=== PATIENT | female | born 1950 | race Caucasian/White ===

== ENCOUNTER → 2016-12-03 | Outpatient (CLI) | payer OTHER, MEDICARE ==
[~2016-12-03] MED LIST: ATOR10TA82 PO; ATR25 PO; ATV/1 PO; CLB/200 PO; ESCI1TAB10 PO; GABA-112 PO; HYDR-5688 PO; LEVO50TA PO; LEVO5TAB2 PO; LEVO75TA PO; LSN/2025 PO; OMEP40CA41 PO; TRAM-10 PO
[2016-12-03 13:35] LABS: ALT/SGPT 19 U/L (12-78); AST/SGOT 19 U/L (15-37)
[2016-12-03 13:37] LABS: ALT/SGPT 20 U/L (12-78); BLOOD UREA NITROGEN 13 mg/dl (7-18); BUN/CREATININE RATIO 13.7 (10-20); CARBON DIOXIDE 29 mmol/L (21-32); CHLORIDE 104 mmol/L (98-107); CREATININE 0.92 mg/dl (0.60-1.20); GLUCOSE 90 mg/dl (70-99); POTASSIUM 3.8 mmol/L (3.5-5.1); SODIUM 140 mmol/L (136-145)
[2016-12-03 13:39] LABS: CALCIUM 9.6 mg/dl (8.5-10.1)
[2016-12-03 13:47] LABS: ALB/GLOB RATIO 0.9 (0.9-2); ALKALINE PHOSPHATASE 116 U/L (45-117); AST/SGOT 20 U/L (15-37); CHOLESTEROL 284 mg/dl (0-200); CHOLESTEROL/HDL RATIO 4.5; HDL CHOLESTEROL 63 mg/dl; LDL CHOLESTEROL CALCULATED 172 mg/dl; THYROID STIMULATING HORMONE 0.709 uIu/ml (0.300-4.500); TRIGLYCERIDES 243 mg/dl (0-150); VERY LOW DENSITY LIPOPROT CALC 49 mg/dl
[2016-12-03 13:48] LABS: ESTIMATED AVERAGE GLUCOSE 108 mg/dl; HA1C FLAG Normal (Normal)
== END | disposition home or self-care (01) ==
LOC: C.LABMFLN 10:05
PROVIDERS: ATTEND Family Medicine
DX: Z11.59 Encounter for screening for other viral diseases (principal); E03.9 Hypothyroidism, unspecified; R73.9 Hyperglycemia, unspecified; E78.5 Hyperlipidemia, unspecified; I10 Essential (primary) hypertension

== ENCOUNTER → 2017-02-11 | Outpatient (CLI) | payer OTHER, MEDICARE ==
[~2017-02-11] MED LIST changes: -ATOR10TA82 PO; +ATOR10TA88 PO; +LEVO-371 PO; -LEVO5TAB2 PO
[2017-02-11 13:07] LABS: URINE APPEARANCE CLEAR (CLEAR); URINE BILIRUBIN NEG (NEG); URINE COLOR YELLOW; URINE EPITHELIAL CELL AUTO >30 /lpf (0-5); URINE NITRITE NEG (NEG); URINE PH 6.5 (4.5-7.5); URINE SPECIFIC GRAVITY 1.018 (1.000-1.030); UROBILINOGEN NEG (NEG)
[2017-02-11 13:07] LABS: BASO % 1.3 %; BASO ABS # 0.07 K/uL (0-0.2); COMPLETE YES; EOS % 5.1 %; HEMATOCRIT 42.9 % (37-47); IG% 0.2 %; LYMPH % 32.6 %; LYMPH ABS # 1.78 K/uL (1.2-3.4); MEAN CELL VOLUME 97.9 fL (80-100); MEAN CORPUSCULAR HEMOGLOBIN 32.6 pg (25-34); MEAN CORPUSCULAR HGB CONC 33.3 g/dl (32-36); MEAN PLATELET VOLUME 9.9 fL (7.4-10.4); MONO % 8.6 %; NEUT % 52.2 %; PLATELET COUNT 405 K/uL (130-400); RED BLOOD COUNT 4.38 M/uL (4.2-5.4); WHITE BLOOD COUNT 5.46 K/uL (4.8-10.8)
[2017-02-11 13:08] LABS: MANUAL MICROSCOPIC REQUIRED? NO; REVIEW REQ? NO
[2017-02-11 13:27] LABS: THYROID STIMULATING HORMONE 1.76 uIu/ml (0.300-4.500)
--- NOTE | 2017-02-18 10:29 | CODING QUERY MEDICAL NECESSITY ---
CQSUPPORTING DIAGNOSIS NEEDED A supporting diagnosis is required for the test/procedure performed on this patient in order for us to be reimbursed by the patient's insurance. Please provide a supporting diagnosis for the following test/procedure listed below next to the test name along with your signature. *If there is no additional diagnosis for this patient that would support the following test/procedure please document that below next to the test/procedure. Test(s)/Procedure(s) that require a supporting diagnosis: DOS 02/11/17 URINE CULTURE Provider Signature: Date: Thank you Haleigh Juárez [facility] Information Management Once completed, please kindly fax back to [phone] For questions please call [phone]
== END | disposition home or self-care (01) ==
LOC: C.LABMFLN 11:12
PROVIDERS: ATTEND Family Medicine
DX: R61 Generalized hyperhidrosis (principal); E03.9 Hypothyroidism, unspecified; R30.0 Dysuria

== ENCOUNTER → 2017-05-12 | Day surgery (SDC) | payer OTHER, MEDICARE ==
[2017-04-15 13:08] VITALS: Ht 154.9 cm; Wt 86.4 kg
[~2017-05-12] VITALS: Ht 154.9 cm; Wt 86.4 kg
[~2017-05-12] MED LIST changes: +500ML BSS 0.3ML EPI 1:1000PF IRRIG ONE; +ACETAMINOPHEN 325 MG TAB PO PRN; +AMVISC PLUS 0.8ML SYRINGE INT OCU ONE; +ATROPINE SULFATE 0.1 MG/ML 5ML SYR IV PRN; +AcetaZOLAMIDE 250 MG TAB PO SCH; +BETAXOLOL HCL 0.25% OP SUSP PER DROP CHARGE OPR SCH; +BRIMONIDINE TART 0.2% OP SOLN PER DROP CHARGE ONE; +BSS FLUSH ONE; +ENDOCOAT 0.85ML SYRINGE INT OCU ONE; +EpHEDrine SULFATE INJ 50 MG/ML AMP IV PRN; +EpINEphrine INJ 1MG/ML AMP 1 MG/ML AMP ONE; +FLUMAZENIL 0.1 MG/1 ML 10 ML VIAL IV PRN; -HYDR-5688 PO; +HYDROmorphone INJ 2 MG/ML SYR/VIAL IV PRN; +LABETALOL HCL IV 5 MG/ML 20ML IV PRN; +LACTATED RINGER'S 1000ML 1,000 ML IV SCH; -LEVO75TA PO; +LIDOCAINE 4% OP SOLN DROP CHARGE ONE; +LIDOCAINE 4% OP SOLN DROP CHARGE OPR SCH; +LIDOCAINE HCL 1% MPF 2 ML VIAL ONE; +MIDAZOLAM HCL 1 MG/ML 2ML VIAL ONE; +MIX: 4ML BSS 1ML EPI 1:1000 PF INSTIL ONE; +MOXIFLOXACIN OPH SOLN PER DROP CHARGE ONE; +NALOXONE HCL 0.4 MG/1 ML VIAL/CARP IV PRN; +NURSING VERBAL MED ORDER ONE; +OCUCOAT 1 ML SOLN IO ONE; +ONDANSETRON INJ 2 MG/ML 2 ML VIAL IV PRN; +PHENYLEPHRINE 100MCG/ML 5ML SYR IV PRN; +POVIDONE-IODINE OP SOLN 30 ML BTL ONE; +PROPARACAINE 0.5% OP SOLN PER DROP CHARGE OPR SCH; +TOBRAMYCIN/DEXAMETHASONE OPH OINT PER APPLN CHARGE ONE
--- NOTE | 2017-05-12 10:41 | History & Physical Bridge - SC ---
H&P Re-Evaluation Bridge Note: I have examined the patient, reviewed the History & Physical and in the interval since the performance of the History & Physical I have noted the following changes of clinical significance: No changes noted
[2017-05-12] MEDS: PHENYLEPHRINE HCL 2.5% OP SOLN PER DROP CHARGE OPR SCH ×2 (10:59→11:08)
[2017-05-12] MEDS: TROPICAMIDE 1% OP SOLN PER DROP CHARGE OPR SCH ×2 (11:00→11:09)
[2017-05-12] MEDS: CYCLOPENTOLATE HCL 1% OP SOLN PER DROP CHARGE OPR SCH ×2 (11:01→11:10)
[2017-05-12] MEDS: MOXIFLOXACIN OPH SOLN PER DROP CHARGE OPR SCH ×2 (11:02→11:13)
--- NOTE | 2017-05-12 11:57 | Discharge Instructions-SurgCtr ---
Discharge Instructions Date of Service May 12, 2017. Visit Reason for Visit: Cataract Right Eye Discharge Discharge Diagnosis / Problem: lens implant right eye Discharge Goals Goal(s): Improve function Activity Recommendations Activity Limitations: resume your previous activity Lifting Limitations: no more than 10 pounds Exercise/Sports Limitations: gradually increase as tolerated May Resume Sexual Activity: when tolerated Shower/Bathe: tomorrow Driving or Machine Use: resume 1 day after discharge Anesthesia . Post Anesthesia Instructions: If you have had General Anesthesia or IV Sedation: * Do not drive today. * Resume driving when surgeon permits. * Do not make important decisions or sign legal documents today. * Call surgeon for: 1. Temperature elevations greater than 101 degrees F. 2. Uncontrollable pain. 3. Excessive bleeding. 4. Persistent nausea and vomiting. 5. Medication intolerance (nausea, vomiting or rash). * For nausea and vomiting use only clear liquids such as: tea, soda, bouillon until nausea subsides, then gradually increase diet as tolerated. * If you have any concerns or questions, call your surgeon's office. If physician is unavailable and it is an emergency, call 911 or go to the nearest emergency room. . Instructions / Follow-Up Instructions / Follow-Up ACTIVITY RECOMMENDATIONS: * Light activities. * Mild irritation and blurred vision are common for the first few days. * You may walk outside, read, watch television. * Redness around the white part of the eye is common. MEDICATIONS: Resume previous medications unless instructed otherwise by your surgeon. * Take white Diamox (Acetazolamide) tablet at 3 pm today. Start all eye drops at 3 pm today: * Eye drops (today and tomorrow): Prednisone - one drop in operative eye every 3 hours while awake Ofloxacin - one drop in operative eye every 3 hours while awake SPECIAL CARE INSTRUCTIONS: * Tape plastic shield over eye to sleep at night. Call your doctor at with any concerns or problems. FOLLOW UP VISIT: Follow-up with Dr Guardado at [place] office as scheduled. Diet Recommendations Home Diet: no limitations Procedures Procedures Performed: cataract extraction with lens implant Pending Studies Studies pending at discharge: no Medical Emergencies . Who to Call and When: Medical Emergencies: If at any time you feel your situation is an emergency, please call 911 immediately. . Non-Emergent Contact Non-Emergency issues call your: Family Service Counselor Call Non-Emergent contact if: your pain is not controlled [phone] . . "Provider Documentation" section prepared by Carlos Guardado. .
--- NOTE | 2017-05-12 11:59 | [facility] Operative Report ---
Operative Report Date of Service May 12, 2017. Operative Report 1. PREOPERATIVE DIAGNOSIS: Senile nuclear cataract, right eye. 2. POSTOPERATIVE DIAGNOSIS: Senile nuclear cataract, right eye. 3. PROCEDURE: Phacoemulsification of right cataract with posterior chamber lens implant, type Bausch [employer] Lomb, model MI60L, power +19.0 diopters. ANESTHESIA: Local standby. SURGEON: Dr. Guardado. COMPLICATIONS: None. OPERATING TIME: 10 minutes. 4. OPERATION AND FINDINGS: DESCRIPTION OF PROCEDURE: The right pupil was dilated. The anesthetic was administered using a topical technique. The right eye was prepped and draped. A speculum was placed. A clear corneal incision was formed. The chamber was filled with Amvisc Plus and Endocoat. Epinephrine solution was used. A paracentesis was placed. A capsulorrhexis was performed. The nucleus was hydrodissected. The lens was removed with phacoemulsification. Time was 1.51 seconds. The aspiration unit was used to remove the cortex. The capsule was filled with Amvisc Plus. The lens implant was folded and placed into the capsule. The incision was hydrated. The Amvisc was aspirated. The wound was secure. The chamber was deep. The pupil was round. Brimonidine, TobraDex ointment and Vigamox solution were placed. The speculum was removed. The patient was returned to the Recovery Room in stable condition. I attest to the content of the Intraoperative Record and any orders documented therein. Any exceptions are noted below. The scribe's documentation has been prepared in my presence, under my direction and personally reviewed by me in its entirety. I confirm that the note above accurately reflects all work, treatment, procedures, and medical decision making performed by me. I personally scribed for Carlos Guardado M.D. ([facility]) on 05/12/17 at 11:59. Electronically submitted by Angelique Melchor ([email or web address]).
[2017-05-12 12:00] VITALS: TEMP 36.6
[2017-05-12] MEDS: PROPARACAINE 0.5% OP SOLN PER DROP CHARGE OPR SCH ×2 (12:05→12:07)
--- NOTE | 2017-05-12 12:20 | Anesthesia Progress Nt - [facility] ---
Anesthesia Post Op Note Date & Time May 12, 2017 at 12:20 Vital Signs Pain Intensity: 2 Vital Signs Past 12 Hours Date Time Temp Pulse Resp B/P (MAP) Pulse Ox O2 Delivery O2 Flow Rate FiO2 05/12/17 12:00 36.6 77 16 127/70 (89) 99 Room Air 05/12/17 10:25 36.7 68 18 133/81 (98) 98 Room Air Notes Mental Status: alert / awake / arousable, participated in evaluation Pt Amnestic to Procedure: Yes Nausea / Vomiting: adequately controlled Pain: adequately controlled Airway Patency, RR, SpO2: stable & adequate BP & HR: stable & adequate Hydration State: stable & adequate Anesthetic Complications: no major complications apparent
[2017-05-12 12:28] VITALS: BP 129/68; PULSE 76; O2SAT 96
== END | disposition home or self-care (01) ==
LOC: X.SURG 09:36
PROVIDERS: ATTEND Specialist
DX: H25.11 Age-related nuclear cataract, right eye (principal); I10 Essential (primary) hypertension; Z79.899 Other long term (current) drug therapy

== ENCOUNTER → 2017-05-26 | Day surgery (SDC) | payer OTHER, MEDICARE ==
[2017-05-18 13:42] VITALS: Ht 154.9 cm; Wt 86.4 kg
[~2017-05-26] VITALS: Ht 154.9 cm; Wt 86.4 kg
[~2017-05-26] MED LIST changes: +BETAXOLOL HCL 0.25% OP SUSP PER DROP CHARGE OPL SCH; -BETAXOLOL HCL 0.25% OP SUSP PER DROP CHARGE OPR SCH; +FENTANYL CITRATE INJ 50 MCG/1 ML 2 ML VIAL ONE; -FLUMAZENIL 0.1 MG/1 ML 10 ML VIAL IV PRN; -HYDROmorphone INJ 2 MG/ML SYR/VIAL IV PRN; -LABETALOL HCL IV 5 MG/ML 20ML IV PRN; -LACTATED RINGER'S 1000ML 1,000 ML IV SCH; +LACTATED RINGER'S 1000ML 500 ML IV SCH; +LIDOCAINE 4% OP SOLN DROP CHARGE OPL SCH; -LIDOCAINE 4% OP SOLN DROP CHARGE OPR SCH; -NALOXONE HCL 0.4 MG/1 ML VIAL/CARP IV PRN; -NURSING VERBAL MED ORDER ONE; -PHENYLEPHRINE 100MCG/ML 5ML SYR IV PRN; +PROPARACAINE 0.5% OP SOLN PER DROP CHARGE OPL SCH; -PROPARACAINE 0.5% OP SOLN PER DROP CHARGE OPR SCH; +TROPICAMIDE 0.5% OP SOLN 15 ML BTL OPL SCH
[2017-05-26] MEDS: PHENYLEPHRINE HCL 2.5% OP SOLN PER DROP CHARGE OPL SCH ×2 (07:08→07:12)
[2017-05-26] MEDS: TROPICAMIDE 1% OP SOLN PER DROP CHARGE OPL SCH ×2 (07:09→07:15)
[2017-05-26] MEDS: CYCLOPENTOLATE HCL 1% OP SOLN PER DROP CHARGE OPL SCH ×2 (07:10→07:17)
[2017-05-26] MEDS: MOXIFLOXACIN OPH SOLN PER DROP CHARGE OPL SCH ×2 (07:11→07:18)
--- NOTE | 2017-05-26 08:04 | Discharge Instructions-SurgCtr ---
Discharge Instructions Date of Service May 26, 2017. Visit Reason for Visit: Cataract Left Eye Discharge Discharge Diagnosis / Problem: lens implant left eye Discharge Goals Goal(s): Improve function Activity Recommendations Activity Limitations: resume your previous activity Lifting Limitations: no more than 10 pounds Exercise/Sports Limitations: gradually increase as tolerated May Resume Sexual Activity: when tolerated Shower/Bathe: tomorrow Driving or Machine Use: resume 1 day after discharge Anesthesia . Post Anesthesia Instructions: If you have had General Anesthesia or IV Sedation: * Do not drive today. * Resume driving when surgeon permits. * Do not make important decisions or sign legal documents today. * Call surgeon for: 1. Temperature elevations greater than 101 degrees F. 2. Uncontrollable pain. 3. Excessive bleeding. 4. Persistent nausea and vomiting. 5. Medication intolerance (nausea, vomiting or rash). * For nausea and vomiting use only clear liquids such as: tea, soda, bouillon until nausea subsides, then gradually increase diet as tolerated. * If you have any concerns or questions, call your surgeon's office. If physician is unavailable and it is an emergency, call 911 or go to the nearest emergency room. . Instructions / Follow-Up Instructions / Follow-Up ACTIVITY RECOMMENDATIONS: * Light activities. * Mild irritation and blurred vision are common for the first few days. * You may walk outside, read, watch television. * Redness around the white part of the eye is common. MEDICATIONS: Resume previous medications unless instructed otherwise by your surgeon. * Take white Diamox (Acetazolamide) tablet at 1 pm today. Start all eye drops at 1 pm today: * Eye drops (today and tomorrow): Prednisone - one drop in operative eye every 3 hours while awake Ofloxacin - one drop in operative eye every 3 hours while awake SPECIAL CARE INSTRUCTIONS: * Tape plastic shield over eye to sleep at night. Call your doctor at with any concerns or problems. FOLLOW UP VISIT: Follow-up with Dr Guardado at [place] office as scheduled. Diet Recommendations Home Diet: no limitations Procedures Procedures Performed: cataract extraction with lens implant Pending Studies Studies pending at discharge: no Medical Emergencies . Who to Call and When: Medical Emergencies: If at any time you feel your situation is an emergency, please call 911 immediately. . Non-Emergent Contact Non-Emergency issues call your: Online Editor Call Non-Emergent contact if: your pain is not controlled [phone] . . "Provider Documentation" section prepared by Carlos Guardado. .
--- NOTE | 2017-05-26 08:06 | [facility] Operative Report ---
Operative Report Date of Service May 26, 2017. Operative Report 1. PREOPERATIVE DIAGNOSIS: Senile nuclear cataract, left eye. 2. POSTOPERATIVE DIAGNOSIS: Senile nuclear cataract, left eye. 3. PROCEDURE: Phacoemulsification of left cataract with posterior chamber lens implant, type Bausch [employer] Lomb, model MI60L, power +18 diopters. ANESTHESIA: Local standby. SURGEON: Dr. Guardado. COMPLICATIONS: None. OPERATING TIME: 10 minutes. 4. OPERATION AND FINDINGS: DESCRIPTION OF PROCEDURE: The left pupil was dilated. The anesthetic was administered using a topical technique. The left eye was prepped and draped. A speculum was placed. A clear corneal incision was formed. The chamber was filled with Amvisc Plus and Endocoat. Epinephrine solution was used. A paracentesis was placed. A capsulorrhexis was performed. The nucleus was hydrodissected. The lens was removed with phacoemulsification. Time was 2.11 seconds. The aspiration unit was used to remove the cortex. The capsule was filled with Amvisc Plus. The lens implant was folded and placed into the capsule. The incision was hydrated. The Amvisc was aspirated. The wound was secure. The chamber was deep. The pupil was round. Brimonidine, TobraDex ointment and Vigamox solution were placed. The speculum was removed. The patient was returned to the Recovery Room in stable condition. I attest to the content of the Intraoperative Record and any orders documented therein. Any exceptions are noted below. The scribe's documentation has been prepared in my presence, under my direction and personally reviewed by me in its entirety. I confirm that the note above accurately reflects all work, treatment, procedures, and medical decision making performed by me. I personally scribed for Carlos Guardado M.D. ([facility]) on 05/26/17 at 08:06. Electronically submitted by Angelique Melchor ([email or web address]).
--- NOTE | 2017-05-26 08:17 | Anesthesiology Progress Note ---
Anesthesia Post Op Note Date & Time May 26, 2017 at 08:17 Vital Signs Pain Intensity: 0 Vital Signs Past 12 Hours Date Time Temp Pulse Resp B/P (MAP) Pulse Ox O2 Delivery O2 Flow Rate FiO2 05/26/17 07:01 36.7 69 18 147/79 (101) 96 Room Air Notes Mental Status: alert / awake / arousable, participated in evaluation Nausea / Vomiting: adequately controlled Pain: adequately controlled Airway Patency, RR, SpO2: stable & adequate BP & HR: stable & adequate Hydration State: stable & adequate Anesthetic Complications: no major complications apparent
[2017-05-26 08:38] VITALS: BP 128/60; PULSE 74; TEMP 36.9; O2SAT 96
== END | disposition home or self-care (01) ==
LOC: X.SURG 06:29
PROVIDERS: ATTEND Specialist
DX: H25.11 Age-related nuclear cataract, right eye (principal); I10 Essential (primary) hypertension; Z79.899 Other long term (current) drug therapy

== ENCOUNTER → 2017-08-20 | Outpatient (CLI) | payer OTHER, MEDICARE ==
[~2017-08-20] MED LIST changes: -500ML BSS 0.3ML EPI 1:1000PF IRRIG ONE; +ACET-1256 PO; +ACET-24 PO; -ACETAMINOPHEN 325 MG TAB PO PRN; -AMVISC PLUS 0.8ML SYRINGE INT OCU ONE; +ASPI-320 PO; +ATOR10TA82 PO; -ATOR10TA88 PO; -ATROPINE SULFATE 0.1 MG/ML 5ML SYR IV PRN; -AcetaZOLAMIDE 250 MG TAB PO SCH; -BETAXOLOL HCL 0.25% OP SUSP PER DROP CHARGE OPL SCH; -BRIMONIDINE TART 0.2% OP SOLN PER DROP CHARGE ONE; -BSS FLUSH ONE; +CLB200 PO; +DICL-201 PO; -ENDOCOAT 0.85ML SYRINGE INT OCU ONE; -EpHEDrine SULFATE INJ 50 MG/ML AMP IV PRN; -EpINEphrine INJ 1MG/ML AMP 1 MG/ML AMP ONE; -FENTANYL CITRATE INJ 50 MCG/1 ML 2 ML VIAL ONE; -LACTATED RINGER'S 1000ML 500 ML IV SCH; -LEVO-371 PO; +LEVO5TAB2 PO; -LIDOCAINE 4% OP SOLN DROP CHARGE ONE; -LIDOCAINE 4% OP SOLN DROP CHARGE OPL SCH; -LIDOCAINE HCL 1% MPF 2 ML VIAL ONE; +LISI20TA10 PO; -LSN/2025 PO; -MIDAZOLAM HCL 1 MG/ML 2ML VIAL ONE; -MIX: 4ML BSS 1ML EPI 1:1000 PF INSTIL ONE; -MOXIFLOXACIN OPH SOLN PER DROP CHARGE ONE; -OCUCOAT 1 ML SOLN IO ONE; +ONDA8TAB62 PO; -ONDANSETRON INJ 2 MG/ML 2 ML VIAL IV PRN; +POLYSOL4 OPB; -POVIDONE-IODINE OP SOLN 30 ML BTL ONE; -PROPARACAINE 0.5% OP SOLN PER DROP CHARGE OPL SCH; +RXC5 PO; -TOBRAMYCIN/DEXAMETHASONE OPH OINT PER APPLN CHARGE ONE; -TROPICAMIDE 0.5% OP SOLN 15 ML BTL OPL SCH; +VNTHFA/IN INH
[2017-08-20 18:50] LABS: ALT/SGPT 23 U/L (12-78); AST/SGOT 19 U/L (15-37); BLOOD UREA NITROGEN 13 mg/dl (7-18); CALCIUM 9.4 mg/dl (8.5-10.1); CARBON DIOXIDE 29 mmol/L (21-32); CREATININE 0.99 mg/dl (0.60-1.20); GLUCOSE 99 mg/dl (70-99); POTASSIUM 3.5 mmol/L (3.5-5.1); SODIUM 137 mmol/L (136-145)
[2017-08-20 19:02] LABS: CHOLESTEROL 147 mg/dl (0-200); LDL CHOLESTEROL CALCULATED 61 mg/dl
== END | disposition home or self-care (01) ==
LOC: C.LABMFLN 10:50
PROVIDERS: ATTEND Family Medicine
DX: I10 Essential (primary) hypertension (principal); E78.2 Mixed hyperlipidemia; E03.9 Hypothyroidism, unspecified; E06.3 Autoimmune thyroiditis

== ENCOUNTER → 2017-10-05 | Outpatient (CLI) | payer OTHER, MEDICARE ==
[~2017-10-05] MED LIST changes: +ASPEC81 PO; -ASPI-320 PO; -ATV/1 PO; -CLB/200 PO; -LEVO5TAB2 PO; -LISI20TA10 PO; +LSN/2025 PO; -TRAM-10 PO
[2017-10-05 13:21] LABS: BASO ABS # 0.08 K/uL (0-0.2); EOS % 2.5 %; HEMATOCRIT 42.6 % (37-47); HEMOGLOBIN 14.6 g/dL (12.0-16.0); IG# 0.03 K/uL (0.00-0.02); LYMPH % 26.7 %; LYMPH ABS # 2.15 K/uL (1.2-3.4); MEAN CELL VOLUME 95.9 fL (80-100); MEAN CORPUSCULAR HEMOGLOBIN 32.9 pg (25-34); MEAN CORPUSCULAR HGB CONC 34.3 g/dl (32-36); MEAN PLATELET VOLUME 9.6 fL (7.4-10.4); MONO % 7.9 %; MONO ABS # 0.64 K/uL (0.11-0.59); NEUT % 61.5 %; NEUT ABS # 4.96 K/uL (1.4-6.5); PLATELET COUNT 447 K/uL (130-400); RED CELL DISTRIBUTION WIDTH CV 13.1 % (11.5-14.5); RED CELL DISTRIBUTION WIDTH SD 45.2 fL (36.4-46.3); WHITE BLOOD COUNT 8.06 K/uL (4.8-10.8)
== END | disposition home or self-care (01) ==
LOC: C.LABBC 11:34
PROVIDERS: ATTEND Specialist
DX: M31.6 Other giant cell arteritis (principal)

== ENCOUNTER 2017-10-13 05:56 | Inpatient (IN) | payer OTHER, MEDICARE ==
[2017-09-21 11:15] VITALS: BMI 37.0
--- NOTE | 2017-09-21 11:46 | PAT Medication Instructions ---
Service Date Sep 21, 2017. Current Home Medication List Albuterol Hfa (Ventolin Hfa), 1 PUFFS INH Q6H PRN for PRN Atorvastatin (Lipitor), 10 MG PO HS Diclofenac (Voltaren), 75 MG PO BID PRN for PRN Escitalopram Oxalate (Lexapro), 20 MG PO QAM Gabapentin (Neurontin), 100 MG PO TID Hctz/Lisinopril (Zestoretic 20MG/25MG), 1 TAB PO QAM Hydroxyzine HCl (Hydroxyzine HCl), 25-50 MG PO HS PRN for Sleep Levothyroxine Sodium (Synthroid), 50 MCG PO QAM Omeprazole (Prilosec), 40 MG PO QAM Medication Instructions For Your Scheduled Surgery - Hold the following medications 7 days prior to surgery: Diclofenac (Voltaren), 75 MG PO BID PRN for PRN - Hold the following medications the morning of surgery: Hctz/Lisinopril (Zestoretic 20MG/25MG), 1 TAB PO QAM - Take the following medications the morning of surgery with a sip of water: Albuterol Hfa (Ventolin Hfa), 1 PUFFS INH Q6H PRN for PRN (if needed, and bring it with you to the hospital) Levothyroxine Sodium (Synthroid), 50 MCG PO QAM Omeprazole (Prilosec), 40 MG PO QAM Gabapentin (Neurontin), 100 MG PO TID Escitalopram Oxalate (Lexapro), 20 MG PO QAM - Take the following medications as scheduled the night before surgery: Hydroxyzine HCl (Hydroxyzine HCl), 25-50 MG PO HS PRN for Sleep Gabapentin (Neurontin), 100 MG PO TID Atorvastatin (Lipitor), 10 MG PO HS If you have any questions please call us at [phone] or [phone] or [phone]
[2017-09-21 12:54] LABS: BASO % 0.8 %; BASO ABS # 0.07 K/uL (0-0.2); EOS % 2.2 %; EOS ABS # 0.19 K/uL (0-0.5); HEMOGLOBIN 13.7 g/dL (12.0-16.0); IG# 0.02 K/uL (0.00-0.02); LYMPH % 27.9 %; LYMPH ABS # 2.42 K/uL (1.2-3.4); MEAN CELL VOLUME 96.5 fL (80-100); MEAN CORPUSCULAR HEMOGLOBIN 32.2 pg (25-34); MEAN CORPUSCULAR HGB CONC 33.4 g/dl (32-36); MEAN PLATELET VOLUME 9.6 fL (7.4-10.4); MONO % 7.6 %; MONO ABS # 0.66 K/uL (0.11-0.59); NEUT % 61.3 %; NEUT ABS # 5.32 K/uL (1.4-6.5); PLATELET COUNT 412 K/uL (130-400); RED CELL DISTRIBUTION WIDTH CV 13.3 % (11.5-14.5); RED CELL DISTRIBUTION WIDTH SD 47.2 fL (36.4-46.3); WHITE BLOOD COUNT 8.68 K/uL (4.8-10.8)
[2017-09-21 13:02] LABS: PTT PATIENT 23.8 SECONDS (21.0-31.0)
[2017-09-21 13:32] LABS: HEMOGLOBIN A1C 5.5 % (4.5-5.6)
--- NOTE | 2017-10-12 19:20 | HISTORY & PHYSICAL EXAMINATION ---
DATE OF ADMISSION: 10/13/2017 CHIEF COMPLAINT: Chronic right knee pain. HISTORY OF PRESENT ILLNESS: This is a 67-year-old female patient of Dr. Laguerre, complaining of chronic right knee pain, longstanding, now progressively getting worse. The patient has failed conservative treatment including intraarticular injections, viscosupplementation, anti-inflammatories and the use of a brace. The patient has increased pain with weightbearing activities and her pain does interfere with her activities of daily living. PAST MEDICAL HISTORY: Hypertension, hypercholesterolemia, asthma, anxiety, hypothyroidism, osteoarthritis, spine problems, neck problems, sciatica, acid reflux, obesity, dental issues. SOCIAL HISTORY: Nonsmoker, nondrinker. FAMILY HISTORY: Noncontributory. SURGICAL HISTORY: Right knee scope and injection bone substitute MTP, Left and right shoulder surgery, left elbow surgery, right ear surgery, bilateral cataract surgery, hysterectomy, neck surgery, low back surgery. REVIEW OF SYSTEMS: The patient complains of chronic right knee pain and instability. Otherwise, denies any shortness of breath, chest pain, nausea, vomiting or any other joint complaints. MEDICATIONS: Omeprazole 100 mg daily, diclofenac sodium 75 mg p.r.n., atorvastatin 10 mg at bedtime, lisinopril 20/25 daily, Lexapro 20 mg daily, Synthroid 75 mcg daily, hydroxyzine 25 mg daily, gabapentin 100 mg t.i.d. ALLERGIES: INCLUDE BETADINE, DARVON, DEMEROL, DILANTIN/PHENYTOIN, DARVOCET, TETANUS SHOTS. PHYSICAL EXAMINATION: GENERAL: Well-developed, well-nourished 67-year-old female in no acute distress. She is alert and oriented x3 and pleasant. HEENT: Normocephalic, atraumatic. Extraocular motions are intact. Pupils are equal and reactive to light. HEART: Regular rate and rhythm, no murmurs appreciated. LUNGS: Clear. ABDOMEN: Soft and nontender. Bowel sounds are present. EXTREMITIES: Right knee reveals medial joint line tenderness. She has limited range of motion of 0-125 degrees. She has a varus deformity. NEUROLOGIC: Neurovascularly, she is intact with 5/5 strength in her right lower extremity. DIAGNOSES: Right knee end-stage osteoarthritis, hypertension, hypercholesterolemia, asthma, anxiety, hypothyroidism, osteoarthritis, spine problems, neck problems, sciatica, acid reflux, obesity, dental issues. PLAN: The patient was advised of her diagnosis. Indications, risks, benefits, postop course have all been reviewed. The patient wishes to proceed with right total knee arthroplasty. Necessary consent forms, preoperative testing and clearances will be obtained. JUAN CARLOS
[2017-10-13] VITALS (8 sets, daily range): BP systolic 93–163; BP diastolic 53–92; PULSE 80–105; TEMP 36.7–37.1; O2SAT 95–97; Ht 154.9 cm; Wt 88.9 kg
[~2017-10-13] VITALS: Ht 154.9 cm; Wt 88.9 kg
[~2017-10-13 05:56] MED LIST changes: -ACET-1256 PO; -ACET-24 PO; -ASPEC81 PO; -CLB200 PO; -ONDA8TAB62 PO; -POLYSOL4 OPB; -RXC5 PO
[2017-10-13] MEDS ORDERED: GABAPENTIN 300 MG CAP PO SCH (06:00)
[2017-10-13] MEDS ORDERED: CeleBREX 200 MG CAP PO SCH (06:00)
[2017-10-13] MEDS ORDERED: CLINDAMYCIN 600 MG/54 ML D5W IV SCH (06:00)
[2017-10-13] MEDS ORDERED: LACTATED RINGER'S 1000ML 500 ML IV SCH (06:00)
[2017-10-13] MEDS ORDERED: ACETAMINOPHEN 500 MG TAB PO SCH (06:00)
[2017-10-13] MEDS ORDERED: DEXAMETHASONE 4 MG TAB PO SCH (06:00)
[2017-10-13] MEDS ORDERED: CEFAZOLIN 2000MG IV PUSH 15 ML IV SCH (06:00)
[2017-10-13] MEDS ORDERED: LACTATED RINGER'S 1000ML 1,000 ML IV SCH (06:00)
[2017-10-13] MEDS ORDERED: ROPIVACAINE 5MG/ML 30 ML 150 MG, BUPIVACAINE 0.5% MPF INJ 30 ML, EpINEphrine HCL INJ 0.... INFIL SCH ×8 (06:00)
[2017-10-13] MEDS ORDERED: FAMOTIDINE 20 MG TAB PO SCH (06:00)
[2017-10-13] MEDS ORDERED: METOCLOPRAMIDE HCL 10 MG TAB PO SCH (06:00)
[2017-10-13] MEDS ORDERED: ROPIVACAINE 0.5% 5 MG/ML 30 ML VIAL ONE (06:27)
[2017-10-13] MEDS ORDERED: BUPIVACAINE 0.5 % 5 MG/1 ML PF 10ML VIAL ONE (06:27)
[2017-10-13] MEDS ORDERED: POLYSOL4 OPB (06:27)
[2017-10-13] MEDS ORDERED: ACET-1256 PO (06:27)
[2017-10-13] MEDS: TRANEXAMIC ACID INJ 1,000 MG x 2 Bags IV SCH ×4 (06:30→07:51)
[2017-10-13] MEDS ORDERED: MIDAZOLAM HCL 1 MG/ML 2ML VIAL ONE ×2 (06:45→07:15)
[2017-10-13] MEDS ORDERED: FENTANYL CITRATE INJ 50 MCG/1 ML 2 ML VIAL ONE ×3 (06:45→07:15)
[2017-10-13] MEDS ORDERED: PROPOFOL IV EMULSION 10 MG/ML 20 ML VIAL IV ONE ×3 (06:45→09:34)
[2017-10-13] MEDS ORDERED: LIDOCAINE HCL 2% 2 ML VIAL (20MG/ML) ONE ×2 (06:45→07:14)
[2017-10-13] MEDS ORDERED: BACITRACIN 50000 UNIT VIAL ONE (07:02)
[2017-10-13] MEDS ORDERED: ORTHO JOINT ANESTHETIC ONE (07:02)
[2017-10-13] MEDS ORDERED: EpHEDrine SULFATE 50MG/5ML SYR ONE (07:14)
[2017-10-13] MEDS ORDERED: PHENYLEPHRINE 100MCG/ML 5ML SYR ONE (07:14)
--- NOTE | 2017-10-13 10:17 | [facility] Post Operative Brief Note ---
Immediate Operative Summary Operative Date Oct 13, 2017. Pre-Operative Diagnosis Right Knee End-Stage Osteoarthritis Post-Operative Diagnosis Right Knee End-Stage Osteoarthritis Procedure(s) Performed Right Total Knee Arthroplasty Surgeon Dr. Edwards Braker Passenger Train Surgeon(s) ANNE MARIE Valenzuela Estimated Blood Loss 5 cc Findings Consistent with Post-Op Diagnosis Specimens A. Right Knee Bone and Tissue Drains 2 hemovac Anesthesia Type MAC Spinal Regional Complication(s) none Disposition Disposition: Recovery Room / PACU
[2017-10-13] MEDS ORDERED: ATROPINE SULFATE 0.1 MG/ML 5ML SYR IV PRN (10:45)
[2017-10-13] MEDS ORDERED: EpHEDrine SULFATE INJ 50 MG/ML AMP IV PRN (10:45)
[2017-10-13] MEDS ORDERED: SOD PHOSPHATE/SOD BIPHOSPHATE ENEMA 132 ML BTL PR PRN (11:00)
[2017-10-13] MEDS ORDERED: hydrOXYzine HCL 25 MG TAB PO PRN (11:00)
[2017-10-13] MEDS ORDERED: ZOLPIDEM TARTRATE 5 MG TAB PO PRN (11:00)
[2017-10-13] MEDS ORDERED: MAGNESIUM HYDROXIDE SUSP 30 ML UDC PO PRN (11:00)
[2017-10-13] MEDS ORDERED: TRAMADOL HCL 50 MG TAB PO PRN (11:00)
[2017-10-13] MEDS ORDERED: ALBUTEROL HFA 8 GM INHALER INH PRN (11:00)
[2017-10-13] MEDS ORDERED: METOCLOPRAMIDE HCL INJ 5 MG/ML 2 ML VIAL IV PRN (11:00)
[2017-10-13] MEDS ORDERED: ONDANSETRON INJ 2 MG/ML 2 ML VIAL IV PRN (11:00)
[2017-10-13] MEDS ORDERED: BISACODYL 10 MG SUPP PR PRN (11:00)
[2017-10-13] MEDS ORDERED: MoRPHine SULFATE 2 MG/ML CARP IV PRN (11:00)
--- NOTE | 2017-10-13 11:15 | OPERATIVE REPORT ---
DATE OF OPERATION: 10/13/2017 INDICATION FOR PROCEDURE: The patient is a 67-year-old white female. She has history of right knee DJD. She had a medial meniscus tear, insufficiency fracture medial tibia, had injectable bone substitute. Despite that, she had progressive osteoarthritis. Now, she is bone on bone in medial compartment. Radiographs demonstrate she has a varus knee, medial compartment bone on bone on flexion views, and injectable bone substitute proximal medial tibial plateau. PREOPERATIVE DIAGNOSIS: End-stage osteoarthritis, right knee. History of previous injectable bone substitute proximal tibia for insufficiency fracture proximal tibia and status post knee arthroscopy. POSTOPERATIVE DIAGNOSIS: Same, healed insufficiency fracture. PROCEDURE: Right total knee arthroplasty. SURGEON: Dr. Edwards. COACH WIRER: Kody Amezquita PA-C. ANESTHESIA: Spinal sedation, adductor nerve block, Orthomix. OPERATIVE PROCEDURE: The patient was taken to the operating room, anesthetized under anesthesia as dictated. Pneumatic tourniquet was placed on the right upper thigh. Right lower extremity was prepped and draped in usual sterile fashion. We used DuraPrep which she tolerated during previous surgeries. Her right lower extremity was examined, demonstrated she had a varus knee, no effusion, no instability, healed scars from previous surgery, good range of motion. Her leg was elevated and exsanguinated with an Esmarch bandage. Pneumatic tourniquet was raised to 325 mmHg and later 350 mmHg during the case because of inadequate effect at the 325 level. The anterior incision was made across the right knee in longitudinal fashion. Skin was incised sharply, subcutaneous flaps were elevated. Incision was made through medial retinaculum, extended up in the mid third of the quadriceps tendon and extended down to the medial tibial tubercle. Intraarticular findings demonstrate she had tricompartmental DJD. She had grade 3 thinning in trochlear groove with significant osteoarthritic changes there. She had some areas of articular thinning and grade 3 wear of the lateral femoral condyle. She had grade 4 DJD medial compartment. I used the [employer] Journey 2.0 total knee arthroplasty system using standard instrumentation. The knee was exposed by excising the infrapatellar fat pad. I excised the lateral meniscus, the medial meniscus remnants. I excised cruciate ligaments. I excised some of the fat pad over the anterior femur for placement of the anterior flange of the component in that area. The femur was then exposed. Intramedullary drill hole was made into the femoral canal. The patient had some anterior, posterior and mediolateral mismatch with a narrow femur. The distal femoral cutting guide was adjusted to resect standard cut at 5 degrees of valgus cut and then went ahead with the sizing guide in place. She was sized for a 5 but that was too wide medial lateral, so we had to downsize to a 4, adjust the alignment guide so we would not notch anteriorly. After the appropriate drill holes were placed, the 5-1 cutting block was placed and then the adjustments were made to that to assure no notching, and then the anterior, posterior and chamfer cuts were made. The knee was then extended and then we addressed the patella. A subperiosteal peel lateral release was performed around the patella. The patella width was measured and the width was reproduced using freehand cut technique and a 29 patellar component which was biased to the medial side to help patellar tracking. The drill holes were made and the excess lateral facet was bevelled off to prevent any impingement. The tibia was then subluxed and an external tibial cutting guide was adjusted to resect a perpendicular cut to the long axis of the tibia with about 3 degrees posterior slope and it was made below the most efficient medial side. After proximal tibia cut was made, we used the laminar baggage and mail agent to assure ligamentous balance, removed all soft tissue posteriorly and osteophytes. The tibia was then re-exposed and then we sized tibia for a 2. Maximum externally rotated the tibial trial. Pinned it in position and punch for the stem was used but we entered it some of the well-healed proximal tibia on the medial side insufficiency fracture area which was significantly thickened due to the calcium phosphate material, so I had to use a skinny saw to assist in cutting the thin insertion site on the medial side to the sclerotic hard calcium phosphate. Then, the punch was fully seated without complication. I did drill some additional holes in the proximal tibia later through that hard calcium phosphate impregnated bone to help with cement fixation. The femoral trial was then inserted, centered, and the notch cutting devices were used and a collet was placed and then an 11 insert high flex poly gave balanced ligaments through full range of motion. The patella had just a very slight lateral liftoff, so we went ahead and did a lateral release, leaving the synovium intact, and patella tracked perfectly centrally at this time. The trials were removed and then the anesthetic cocktail was injected per protocol. The knee was copiously irrigated with pulsatile lavage antibiotic solution and Bacitracin. The final components were cemented with Simplex G cement. The final components were the [employer] right Oxinium Journey 2.0 posterior stabilized right femoral component and that was size 4 femoral component and the 2 tibial baseplate and the 11 mm high flex poly posterior stabilized insert and the 29 mm domed patella insert. When the cement cured, the knee was again copiously irrigated with pulsatile lavage antibiotic solution and Bacitracin. WE DID NOT USE ANY BETADINE SOAK DUE TO BETADINE ALLERGY. The 2 drains were brought out laterally, connected to Hemovac. The quadriceps tendon and medial retinaculum were repaired with interrupted [id number] #1 Vicryl sutures. Subcutaneous tissue was closed with interrupted 2-0 Vicryl sutures. The skin was closed with chandler. Sterile dressings were applied and Richi wrap from the foot to the thigh was applied. Kody Amezquita PA-C, was my veterinarian assistant, participated in the entire procedure. He assisted in patient positioning, prepping, draping, leg positioning, soft tissue retraction, instrument management, and performed the fascial, subcutaneous and skin closure, and will participate in postoperative care of the patient. I attest to the content of the Intraoperative Record and any orders documented therein. Any exception s are noted below.
--- NOTE | 2017-10-13 11:22 | DIAGNOSTIC IMAGING REPORT ---
R KNEE 1 OR 2 VIEWS ROUTINE CLINICAL HISTORY: AP/LATERAL IN PACU RIGHT KNEE postoperative evaluation COMPARISON: None. DISCUSSION: Operative findings consistent with a total right knee arthroplasty. Good contact between prosthetic and underlying bone. Surgical drains are in position. Expected postoperative soft tissue change. IMPRESSION: Anatomic alignment status post total right knee arthroplasty. The above report was generated using voice recognition software. It may contain grammatical, syntax or spelling errors. Electronically signed by: Kody Santana M.D. 10/13/2017 11:21 AM Dictated Date/Time: 10/13/2017 11:19 AM
--- NOTE | 2017-10-13 11:56 | Anesthesiology Progress Note ---
Anesthesia Post Op Note Date & Time Oct 13, 2017 at 11:56 Vital Signs Pain Intensity: 0 Vital Signs Past 12 Hours Date Time Temp Pulse Resp B/P (MAP) Pulse Ox O2 Delivery O2 Flow Rate FiO2 10/13/17 11:45 91 14 123/64 95 Nasal Cannula 2 10/13/17 11:35 92 17 120/65 95 Nasal Cannula 2 10/13/17 11:25 88 18 128/75 95 Nasal Cannula 2 10/13/17 11:15 92 23 130/99 95 Nasal Cannula 2 10/13/17 11:05 88 12 129/64 99 Oxymask 6 10/13/17 10:55 89 12 110/61 99 Oxymask 6 10/13/17 10:49 36.3 94 20 111/56 97 Oxymask 10 10/13/17 06:10 36.7 80 20 163/92 96 Room Air Notes Mental Status: alert / awake / arousable, participated in evaluation Pt Amnestic to Procedure: Yes Nausea / Vomiting: adequately controlled Pain: adequately controlled Airway Patency, RR, SpO2: stable & adequate BP & HR: stable & adequate Hydration State: stable & adequate Neuraxial Anesthesia: was administered, sensory block is resolving Anesthetic Complications: no major complications apparent
[2017-10-13] MEDS: D5W AND 1/2NSS + 20MEQ KCL 1,000 ML IV SCH ×2 (13:20→23:33)
--- NOTE | 2017-10-13 13:41 | Medical Consult ---
Consultation Date of Consultation: Oct 13, 2017. Attending Physician: Kenji Edwards M.D. Reason for Consultation: medical co management History of Present Illness 67-year-old female with past medical history of hypertension, dyslipidemia, Alyson thyroiditis/hypothyroidism and severe arthritis. Patient failed outpatient conservative management and presented to the hospital hospital for an elective right total knee arthroplasty. Procedure went uneventful and patient has no complaint Family History No pertinent family history Social History Smoking Status: Never Smoker Marital Status: Occupation Status: retired Allergies Coded Allergies: Chlorhexidine (Verified Allergy, Severe, HIVES, 10/13/17) Phenytoin (Verified Allergy, Intermediate, RASH, 10/13/17) Adhesives (Verified Allergy, Unknown, WITH SONE TAPES-SKIN REDDNESS IRRITATION, 10/13/17) Dicloxacillin (Verified Allergy, Unknown, hives, gi upset, 10/13/17) Meperidine (Verified Allergy, Unknown, RASH, 10/13/17) Povidone Iodine (Verified Allergy, Unknown, rash and swelling at contact site, 10/13/17) Propoxyphene (Verified Allergy, Unknown, RASH, 10/13/17) Tetanus Toxoid (Verified Allergy, Unknown, RASH, 10/13/17) Aspirin (Unverified Adverse Reaction, Unknown, GI UPSET, 10/13/17) Current Inpatient Medications Current Inpatient Medications Medications (Trade) Dose Ordered Sig/Tuan Route Start Time Stop Time Status Last Admin Dose Admin Acetaminophen (Tylenol Tab) 1,000 mg PREOP PO 10/13/17 06:00 10/13/17 18:00 10/13/17 06:34 1,000 MG Celecoxib (CeleBREX CAP) 200 mg PREOP PO 10/13/17 06:00 10/13/17 18:00 10/13/17 06:32 200 MG Dexamethasone (Decadron Tab) 8 mg PREOP PO 10/13/17 06:00 10/13/17 18:00 10/13/17 06:32 8 MG Famotidine (Pepcid Tab) 20 mg PREOP PO 10/13/17 06:00 10/13/17 18:00 10/13/17 06:33 20 MG Gabapentin (Neurontin Cap) 300 mg PREOP PO 10/13/17 06:00 10/13/17 18:00 10/13/17 06:33 300 MG Metoclopramide HCl (Reglan Tab) 10 mg PREOP PO 10/13/17 06:00 10/13/17 18:00 10/13/17 06:33 10 MG Tranexamic Acid 1000 mg/Sodium Chloride 110 ml @ 660 mls/hr TODAY@06,0630 IV 10/13/17 06:00 10/13/17 15:00 10/13/17 07:51 660 MLS/HR Lactated Ringer's 1,000 ml @ 15 mls/hr Q24H IV 10/13/17 06:00 10/14/17 05:59 Ropivacaine 150 mg/Bupivacaine HCl 30 ml/ Epinephrine HCl 0.15 mg/Ketorolac Tromethamine 30 mg/Dexamethasone Sodium Phosphate 4 mg/Ketamine HCl 10 mg/Clonidine 100 mcg/Sodium Chloride 93.35 ml @ 0 mls/hr TODAY@06 INFIL 10/13/17 06:00 10/13/17 15:00 10/13/17 06:00 93.3 MLS/HR Ephedrine Sulfate (EpHEDrine SULFATE INJ) 5 mg Q5M PRN IV 10/13/17 10:45 10/13/17 15:45 Atropine Sulfate (Atropine Sulfate 0.1mg/ml Inj) 0.5 mg Q1M PRN IV 10/13/17 10:45 10/13/17 15:45 Albuterol (Ventolin Hfa Inhaler) 1 puffs Q6H PRN INH 10/13/17 11:00 11/12/17 10:59 Atorvastatin Calcium (Lipitor Tab) 10 mg HS PO 10/13/17 21:00 11/12/17 20:59 Escitalopram Oxalate (Lexapro Tab) 20 mg QAM PO 10/14/17 09:00 11/13/17 08:59 Gabapentin (Neurontin Cap) 100 mg TID PO 10/13/17 14:00 11/12/17 13:59 HCTZ/Lisinopril (Prinzide 20-25MG Tab) 1 tab QAM PO 10/13/17 13:00 11/12/17 12:59 Hydroxyzine HCl (Vistaril Tab) as needed HS PRN PO 10/13/17 11:00 11/12/17 10:59 Levothyroxine Sodium (Synthroid Tab) 50 mcg DAILYBB PO 10/14/17 06:00 11/13/17 05:59 Artificial Tears (Artificial Tears) 1 drops TID OPB 10/13/17 14:00 11/12/17 13:59 Potassium Chloride/Dextrose/ Sod Cl 1,000 ml @ 100 mls/hr Q10H IV 10/13/17 13:00 10/14/17 12:59 10/13/17 13:20 100 MLS/HR Clindamycin Phosphate 600 mg/ Dextrose 54 ml @ 100 mls/hr Q8H IV 10/13/17 16:00 10/14/17 00:33 Celecoxib (CeleBREX CAP) 200 mg BID PO 10/13/17 21:00 11/12/17 20:59 Oxycodone HCl (Roxicodone Immediate Rel Tab) 1 TABLET FOR PAIN RATING... Q4H PRN PO 10/13/17 11:00 10/27/17 10:59 Morphine Sulfate (MoRPHine SULFATE INJ) as needed Q2H PRN IV 10/13/17 11:00 10/27/17 10:59 Acetaminophen (Tylenol Tab) 1,000 mg Q8H PO 10/13/17 22:00 11/12/17 21:59 Magnesium Hydroxide (Milk Of Magnesia Susp) 30 ml Q6H PRN PO 10/13/17 11:00 11/12/17 10:59 Bisacodyl (Dulcolax Supp) 10 mg DAILY PRN TX 10/13/17 11:00 11/12/17 10:59 Sodium Biphosphate/ Sodium Phosphate (Fleet Enema) 132 ml DAILY PRN [place] 10/13/17 11:00 11/12/17 10:59 Docusate Sodium (coLACE CAP) 100 mg BID PO 10/13/17 21:00 11/12/17 20:59 Diphenhydramine HCl (Benadryl Cap) 25 mg Q8H PRN PO 10/13/17 11:00 11/12/17 10:59 Zolpidem Tartrate (Ambien Tab) 5 mg HSZ PRN PO 10/13/17 11:00 11/12/17 10:59 Multivitamins (Multivitamin Tab) 1 tab QAM PO 10/14/17 09:00 11/13/17 08:59 Ondansetron HCl (Zofran Inj) 4 mg Q6H PRN IV 10/13/17 11:00 11/12/17 10:59 Metoclopramide HCl (Reglan Inj) 10 mg Q6H PRN IV 10/13/17 11:00 11/12/17 10:59 Pantoprazole Sodium (Protonix Tab) 40 mg QAM PO 10/14/17 09:00 10/18/17 08:59 Tramadol HCl (Ultram Tab) 1 tablet for pain rating... Q4H PRN PO 10/13/17 11:00 11/12/17 10:59 Aspirin (Ecotrin Tab) 81 mg BID PO 10/13/17 21:00 11/12/17 20:59 Review of Systems Review of system Constitutional: No fever / no chills / no sweats / no weakness / no fatigue Eyes: no blurring of vision / no eye pain / no discharge / no redness ENT: no hearing loss / no epistaxis /no swallowing problems Respiratory: no cough / no wheezing / no SOB / no hemoptysis Cardiovascular: no Chest pain / no lower extremity edema / no palpitation Abdomen: no pain / no nausea / no vomiting / no constipation Musculoskeletal: no joint pain / no muscle pain / no joint swelling, right knee is wrapped Genitourinary: no dysuria / no incontinence / no urinary retention Neurologic: no focal weakness / no numbness/tingling / no ataxia Psychiatric: no depression symptoms / no anxiety / no insomnia Endocrine: no excessive thirst / no excessive urination Hematologic: no abnormal bleeding / no bruising / no LN swelling Skin: No rash / no pallor Physical Exam Date Time Temp Pulse Resp B/P (MAP) Pulse Ox O2 Delivery O2 Flow Rate FiO2 10/13/17 12:50 95 16 111/71 (84) 97 Nasal Cannula 2.0 10/13/17 12:34 Room Air 2.0 10/13/17 12:33 36.7 93 16 122/78 (93) 97 Nasal Cannula 2.0 10/13/17 12:32 Nasal Cannula 2.0 10/13/17 11:55 36.3 93 15 120/64 96 Nasal Cannula 2 10/13/17 11:45 91 14 123/64 95 Nasal Cannula 2 10/13/17 11:35 92 17 120/65 95 Nasal Cannula 2 10/13/17 11:25 88 18 128/75 95 Nasal Cannula 2 10/13/17 11:15 92 23 130/99 95 Nasal Cannula 2 10/13/17 11:05 88 12 129/64 99 Oxymask 6 10/13/17 10:55 89 12 110/61 99 Oxymask 6 10/13/17 10:49 36.3 94 20 111/56 97 Oxymask 10 10/13/17 06:10 36.7 80 20 163/92 96 Room Air Physical examination General patient appears to be comfortable, not in acute distress HEENT: Atraumatic , normocephalic /no jaundice /no pallor /anicteric /no dry mucous membrane /normal external ear inspection Neck: Supple /no swelling /central trach Heart: S1/S2 normal/regular rate and rhythm/no gallop /no rub /no murmur Lungs: Clear to auscultation bilaterally/normal chest with expansion/no rhonchi/ no rales/no wheezing/no use of accessory muscles of respiration Abdomen: Soft/nontender/no guarding/no rebound/no organomegaly/no pulsatile mass Musculoskeletal: No swelling/no edema/no tenderness/, right knee is wrapped, moves her toe, normal capillary filling Neuro exam: Awake alert oriented 3/cranial nerves II through XII appear to be intact/sensation intact/moves all extremities/no abnormal movements Psychiatric evaluation: No depressed mood/normal affect Skin: No rash on exposed skin area/no erythema Extremity: Normal pulse/no pitting edema/no clubbing or cyanosis Endocrine/lymphatic: No obvious lymphadenopathy /no lymphedema Assessment & Plan 67 years old female with PMhx of HTN, hypothyroidism and dyslipidemia S/P R TKA Assessment: severe osteoarthritis that failed outpatient conservative measures. Patient presented to the hospital for an elective orthopedic procedure, S/P R TKA HTN Dyslipidemia Hypothyroidism obesity Plan Status post orthopedic procedure R TKA, went uneventful post operative day # 0 Patient tolerated procedure well with minimal blood loss Appears to be stable Continue outpatient medications Follow-up labs, please avoid nephrotoxic if renal function is impaired Ensure adequate oral/parenteral intake Pain management Physical therapy initiation as per primary orthopedic team DVT prophylaxis as per the choice of primary orthopedic team patient said that her blood pressure and cholesterol are controlled on her meds , she seemed surprise when I introduced my self. since she is stable now, will sign off and please call us if there is any question or concern
[2017-10-13] MEDS: LISINOPRIL/HCTZ 20/25MG TAB PO SCH (14:05)
[2017-10-13] MEDS: GABAPENTIN 100 MG CAP PO SCH ×2 (14:05→21:30)
[2017-10-13] MEDS: ARTIFICIAL TEARS OP SOLN OPB SCH ×2 (14:06→21:32)
[2017-10-13 14:49] LABS: CALCIUM 9.1 mg/dl (8.5-10.1); CREATININE 1.16 mg/dl (0.60-1.20); POTASSIUM 3.6 mmol/L (3.5-5.1)
[2017-10-13] MEDS: CLINDAMYCIN IV 600 MG in DEXTROSE 5% 50ML 50 ML IV SCH ×2 (17:07→23:33)
[2017-10-13] MEDS: CeleBREX 200 MG CAP PO SCH (21:29)
[2017-10-13] MEDS: ATORVASTATIN 10 MG TAB PO SCH (21:30)
[2017-10-13] MEDS: DOCUSATE SODIUM 100 MG CAP PO SCH (21:30)
[2017-10-13] MEDS: ASPIRIN 81 MG ECTAB PO SCH (21:31)
[2017-10-13] MEDS: ACETAMINOPHEN 500 MG TAB PO SCH (21:31)
[2017-10-14 03:20] VITALS: BP_SYST 152; BP_SYST 95; BP_DIAS 55; BP_DIAS 78; PULSE 72; PULSE 75; TEMP 36.4; TEMP 36.9; O2SAT 92; O2SAT 97
[2017-10-14] MEDS: LEVOTHYROXINE 50 MCG TAB PO SCH (05:43)
[2017-10-14] MEDS: ACETAMINOPHEN 500 MG TAB PO SCH ×3 (05:43→21:35)
[2017-10-14 05:51] LABS: HEMATOCRIT 31.4 % (37-47); HEMOGLOBIN 10.9 g/dL (12.0-16.0); IG# 0.06 K/uL (0.00-0.02); LYMPH % 10.8 %; LYMPH ABS # 1.63 K/uL (1.2-3.4); MEAN CELL VOLUME 93.2 fL (80-100); MEAN CORPUSCULAR HEMOGLOBIN 32.3 pg (25-34); MEAN CORPUSCULAR HGB CONC 34.7 g/dl (32-36); MONO % 6.9 %; MONO ABS # 1.04 K/uL (0.11-0.59); NEUT % 81.9 %; NEUT ABS # 12.36 K/uL (1.4-6.5); PLATELET COUNT 333 K/uL (130-400); RED CELL DISTRIBUTION WIDTH CV 13.1 % (11.5-14.5); RED CELL DISTRIBUTION WIDTH SD 44.9 fL (36.4-46.3); WHITE BLOOD COUNT 15.09 K/uL (4.8-10.8)
[2017-10-14] MEDS ORDERED: ROPIVACAINE 5MG/ML 30 ML 150 MG, BUPIVACAINE 0.5% MPF INJ 30 ML, EpINEphrine HCL INJ 0.... INFIL SCH ×8 (06:00)
[2017-10-14 06:28] LABS: ALBUMIN 2.8 gm/dl (3.4-5.0); CALCIUM 8.3 mg/dl (8.5-10.1); CREATININE 1.02 mg/dl (0.60-1.20); POTASSIUM 4.1 mmol/L (3.5-5.1)
[2017-10-14 07:00] VITALS: BP 115/65; PULSE 77; TEMP 36.7; O2SAT 97
--- NOTE | 2017-10-14 07:39 | Orthopedic Progress Note ---
Orthopedic Progress Note Date of Service Oct 14, 2017. Subjective Post OP Day: 1 Reports: feeling well, pain controlled w PO medications, Denies: complaints, chest pain, SOB, nausea / vomiting, light headedness, calf pain Objective calves soft nontender, N/V intact, capillary refill less than 2 sec., dressing C /D/I, A&O x3, toes mobile Date Time Temp Pulse Resp B/P (MAP) Pulse Ox O2 Delivery O2 Flow Rate FiO2 10/14/17 03:20 36.9 75 16 95/55 (68) 97 Room Air 10/13/17 23:11 36.9 85 16 93/53 (66) 95 Room Air 10/13/17 19:50 37.1 92 16 121/67 (85) 96 Room Air 10/13/17 19:35 Room Air 10/13/17 15:21 36.9 105 16 145/72 (96) 97 Nasal Cannula 2.0 10/13/17 14:10 103 16 131/76 (94) 96 Nasal Cannula 2.0 10/13/17 13:45 36.8 103 16 120/72 (88) 10/13/17 13:30 Nasal Cannula 2.0 10/13/17 12:50 95 16 111/71 (84) 97 Nasal Cannula 2.0 10/13/17 12:34 Room Air 2.0 10/13/17 12:33 36.7 93 16 122/78 (93) 97 Nasal Cannula 2.0 10/13/17 12:32 Nasal Cannula 2.0 10/13/17 11:55 36.3 93 15 120/64 96 Nasal Cannula 2 10/13/17 11:45 91 14 123/64 95 Nasal Cannula 2 10/13/17 11:35 92 17 120/65 95 Nasal Cannula 2 10/13/17 11:25 88 18 128/75 95 Nasal Cannula 2 10/13/17 11:15 92 23 130/99 95 Nasal Cannula 2 10/13/17 11:05 88 12 129/64 99 Oxymask 6 10/13/17 10:55 89 12 110/61 99 Oxymask 6 10/13/17 10:49 36.3 94 20 111/56 97 Oxymask 10 Laboratory Results 24 Hours: Test 10/14/17 05:17 White Blood Count 15.09 K/uL Red Blood Count 3.37 M/uL Hemoglobin 10.9 g/dL Hematocrit 31.4 % Mean Corpuscular Volume 93.2 fL Mean Corpuscular Hemoglobin 32.3 pg Mean Corpuscular Hemoglobin Concent 34.7 g/dl Platelet Count 333 K/uL Mean Platelet Volume 9.0 fL Neutrophils (%) (Auto) 81.9 % Lymphocytes (%) (Auto) 10.8 % Monocytes (%) (Auto) 6.9 % Eosinophils (%) (Auto) 0.0 % Basophils (%) (Auto) 0.0 % Neutrophils # (Auto) 12.36 K/uL Lymphocytes # (Auto) 1.63 K/uL Monocytes # (Auto) 1.04 K/uL Eosinophils # (Auto) 0.00 K/uL Basophils # (Auto) 0.00 K/uL Assessment & Plan Assessment: POD #1, Right TKA Plan: PT/ OT DVT proph- ASA D/C planning- Home w OPPT As per medicine Inhouse Planning Pain Management: Celebrex, Ultram, Morphine, PO Tylenol, Oxy IR DVT Prophylaxis: TEDs, SCDs, ASA Discharge Planning Discharge Planning: home with oppt Pain Management: Celebrex, PO Tylenol, Oxy IR DVT Prophylaxis: TEDs, ASA Therapy: Physical Therapy, Occupational Therapy
[2017-10-14] MEDS: DOCUSATE SODIUM 100 MG CAP PO SCH ×2 (08:47→20:31)
[2017-10-14] MEDS: ESCITALOPRAM OXALATE 20 MG TAB PO SCH (08:47)
[2017-10-14] MEDS: ASPIRIN 81 MG ECTAB PO SCH ×2 (08:48→20:33)
[2017-10-14] MEDS: PANTOprazole SOD 40 MG TAB PO SCH (08:48)
[2017-10-14] MEDS: LISINOPRIL/HCTZ 20/25MG TAB PO SCH (08:48)
[2017-10-14] MEDS: GABAPENTIN 100 MG CAP PO SCH ×3 (08:49→20:32)
[2017-10-14] MEDS: MULTIVITAMIN TAB PO SCH (08:49)
[2017-10-14] MEDS: CeleBREX 200 MG CAP PO SCH ×2 (08:50→20:32)
[2017-10-14] MEDS: D5W AND 1/2NSS + 20MEQ KCL 1,000 ML IV SCH (08:51)
[2017-10-14] MEDS: ARTIFICIAL TEARS OP SOLN OPB SCH ×3 (08:52→20:52)
[2017-10-14 10:12] VITALS: BP 129/72
--- NOTE | 2017-10-14 10:53 | Anesthesiology Progress Note ---
Anesthesia Post Op Note Date & Time Oct 14, 2017 at 10:53 Vital Signs Vital Signs Past 12 Hours Date Time Temp Pulse Resp B/P (MAP) Pulse Ox O2 Delivery O2 Flow Rate FiO2 10/14/17 08:00 Room Air 10/14/17 07:00 36.7 77 16 115/65 (82) 97 Room Air 10/14/17 03:20 36.9 75 16 95/55 (68) 97 Room Air 10/13/17 23:11 36.9 85 16 93/53 (66) 95 Room Air Notes Mental Status: alert / awake / arousable, participated in evaluation Pt Amnestic to Procedure: Yes Nausea / Vomiting: adequately controlled Pain: adequately controlled Airway Patency, RR, SpO2: stable & adequate BP & HR: stable & adequate Hydration State: stable & adequate Neuraxial Anesthesia: was administered, sensory block resolved Anesthetic Complications: no major complications apparent
[2017-10-14 11:10] VITALS: BP 109/64; PULSE 63; TEMP 36.5; O2SAT 95
--- NOTE | 2017-10-14 14:56 | Hospitalist Progress Note ---
Hospitalist Progress Note Date of Service Oct 14, 2017. (Nelda Callaway ., GENC) Subjective Pt evaluation today including: conversation w/ patient, conversation w/ family ( at bedside), physical exam, chart review, lab review, review of inpatient medication list Pain: None PO Intake: Tolerating PO diet Voiding: no voiding problems Patient reports feeling well. She denies any joint pain and states physical therapy went very well. She is eating and urinating without difficulty postop. She is passing gas but has not yet had a bowel movement. She anticipates being discharged tomorrow. The patient denies fevers, chills, sweats, chest pain, palpitations, claudication, cough, wheezing, shortness of breath, nausea, vomiting, abdominal pain, dysuria, hematuria, urinary retention, paralysis, weakness, numbness and tingling. Additional Comments: See HPI for pertinent positives and negatives. All other systems reviewed and negative. (Nelda Callaway ., ANNE MARIE-C) Objective Vital Signs Date Time Temp Pulse Resp B/P (MAP) Pulse Ox O2 Delivery O2 Flow Rate FiO2 10/14/17 11:10 36.5 63 16 109/64 (79) 95 Room Air 10/14/17 08:00 Room Air 10/14/17 07:00 36.7 77 16 115/65 (82) 97 Room Air 10/14/17 03:20 36.9 75 16 95/55 (68) 97 Room Air 10/13/17 23:11 36.9 85 16 93/53 (66) 95 Room Air 10/13/17 19:50 37.1 92 16 121/67 (85) 96 Room Air 10/13/17 19:35 Room Air 10/13/17 15:21 36.9 105 16 145/72 (96) 97 Nasal Cannula 2.0 (Nelda Callaway ., ANNE MARIE-C) Physical Exam Notes: General appearance: +Obese. Well-developed, well-nourished, no apparent distress Head: Normocephalic, atraumatic Eyes: Normal inspection, PERRL, EOMI ENT: Normal ENT inspection, hearing grossly normal, pharynx normal Neck: Supple, no JVD, trachea midline Respiratory/Chest: Lungs clear to auscultation, normal breath sounds, no respiratory distress Cardiovascular: Regular rate & rhythm, no gallop, no murmur Abdomen/GI: Normal bowel sounds, non-tender, soft Extremities/Musculoskeletal: +RLE wrapped in dav bandage. Hemovac in place. No calf tenderness, no pedal edema Neurological/Psych: Alert, normal mood/affect, oriented x 3 Skin: Normal color, warm/dry, no rash (Nelda Callaway ., GENC) Laboratory Results Last 24 Hours Test 10/14/17 05:17 White Blood Count 15.09 K/uL Red Blood Count 3.37 M/uL Hemoglobin 10.9 g/dL Hematocrit 31.4 % Mean Corpuscular Volume 93.2 fL Mean Corpuscular Hemoglobin 32.3 pg Mean Corpuscular Hemoglobin Concent 34.7 g/dl Platelet Count 333 K/uL Mean Platelet Volume 9.0 fL Neutrophils (%) (Auto) 81.9 % Lymphocytes (%) (Auto) 10.8 % Monocytes (%) (Auto) 6.9 % Eosinophils (%) (Auto) 0.0 % Basophils (%) (Auto) 0.0 % Neutrophils # (Auto) 12.36 K/uL Lymphocytes # (Auto) 1.63 K/uL Monocytes # (Auto) 1.04 K/uL Eosinophils # (Auto) 0.00 K/uL Basophils # (Auto) 0.00 K/uL RDW Standard Deviation 44.9 fL RDW Coefficient of Variation 13.1 % Immature Granulocyte % (Auto) 0.4 % Immature Granulocyte # (Auto) 0.06 K/uL Sodium Level 135 mmol/L Potassium Level 4.1 mmol/L Chloride Level 104 mmol/L Carbon Dioxide Level 24 mmol/L Anion Gap 7.0 mmol/L Blood Urea Nitrogen 18 mg/dl Creatinine 1.02 mg/dl Est Creatinine Clear Calc Drug Dose 53.5 ml/min Estimated GFR () 65.5 Estimated GFR (Non- 56.5 BUN/Creatinine Ratio 17.5 Random Glucose 126 mg/dl Calcium Level 8.3 mg/dl Magnesium Level 1.7 mg/dl Total Bilirubin 0.2 mg/dl Aspartate Amino Transf (AST/SGOT) 47 U/L Alanine Aminotransferase (ALT/SGPT) 47 U/L Alkaline Phosphatase 103 U/L Total Protein 6.0 gm/dl Albumin 2.8 gm/dl Globulin 3.2 gm/dl Albumin/Globulin Ratio 0.9 (Nelda Callaway ., MARIO) Assessment and Plan 67 y/o female with a history of HTN, HLD, hypothyroidism, anxiety/depression, neuropathy, and GERD who presents s/p right TKA with Dr. Edwards on 10/14 for medical management. S/p R TKA--POD #1 -Pain management, DVT prophylaxis, and PT/OT as per primary team -AVSS, no pain -Plans on discharging to home w/outpatient PT Mild hypomagnesemia -Magnesium 1.7, will give MagOx 400 mg PO BID x 2 doses, recheck in am HTN, HLD--stable -Continue HCTZ/lisinopril 25/20 mg PO qd and Lipitor 10 mg PO qd Hypothyroidism--stable -TSH 4.07 on 08/20/17 -Continue Synthroid 50 mcg PO qd Anxiety/depression -Continue Lexapro 20 mg PO qd, Vistaril 25-50 mg PO hs prn Neuropathy -Continue gabapentin 100 mg PO TID GERD -Prilosec converted to Protonix Pt. is stable from a medical standpoint, we will sign off. Clear for discharge as per primary team. 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 Discussed with ANNE MARIE Callaway and agree with findings and plan as documented in the note. Any exceptions or clarifications are listed here: Pt doing great, has no complaints. No CP or SOB, no N/V, no headache, knee pain is controlled Vitals reviewed Obese, NAD RRR no mgr CTAb breathing unlabored Ext Right knee in bandage not removed Rt TKS, HTN, HL, Hypothyroidism -doing well, stable, BPs controlled, labs good -continue meds as above Sign off on consultation Documented By: Kori Chavira (Kori Chavira MD)
[2017-10-14] MEDS ORDERED: MAGNESIUM OXIDE 400 MG TAB PO ONE (15:00)
[2017-10-14 15:14] VITALS: BP 109/65; PULSE 75; TEMP 36.4; O2SAT 98
[2017-10-14] MEDS: ATORVASTATIN 10 MG TAB PO SCH (20:31)
[2017-10-14] MEDS: MAGNESIUM OXIDE 400 MG TAB PO SCH (20:51)
[2017-10-14 23:20] VITALS: BP 124/68; PULSE 76; TEMP 36.6; O2SAT 95
[2017-10-14] MEDS: OXYCODONE HCL IR 5 MG TAB (IMMEDIATE RELEASE) PO PRN (23:26)
[2017-10-15] MEDS: OXYCODONE HCL IR 5 MG TAB (IMMEDIATE RELEASE) PO PRN ×2 (05:50→11:04)
[2017-10-15] MEDS: LEVOTHYROXINE 50 MCG TAB PO SCH (05:51)
[2017-10-15] MEDS: ACETAMINOPHEN 500 MG TAB PO SCH (05:51)
[2017-10-15 06:45] VITALS: BP 103/63; PULSE 73; TEMP 36.4; O2SAT 96
[2017-10-15 07:00] LABS: HEMATOCRIT 32.5 % (37-47); HEMOGLOBIN 10.9 g/dL (12.0-16.0); MEAN CELL VOLUME 96.2 fL (80-100); MEAN CORPUSCULAR HEMOGLOBIN 32.2 pg (25-34); MEAN CORPUSCULAR HGB CONC 33.5 g/dl (32-36); MEAN PLATELET VOLUME 9.3 fL (7.4-10.4); PLATELET COUNT 352 K/uL (130-400); RED CELL DISTRIBUTION WIDTH CV 13.6 % (11.5-14.5); RED CELL DISTRIBUTION WIDTH SD 47.1 fL (36.4-46.3); WHITE BLOOD COUNT 9.72 K/uL (4.8-10.8)
[2017-10-15 07:28] LABS: CALCIUM 8.6 mg/dl (8.5-10.1); CREATININE 0.92 mg/dl (0.60-1.20); POTASSIUM 4.2 mmol/L (3.5-5.1)
[2017-10-15] MEDS: CeleBREX 200 MG CAP PO SCH (07:36)
[2017-10-15] MEDS: ARTIFICIAL TEARS OP SOLN OPB SCH (07:36)
[2017-10-15] MEDS: DOCUSATE SODIUM 100 MG CAP PO SCH (07:36)
[2017-10-15] MEDS: MAGNESIUM OXIDE 400 MG TAB PO SCH (07:37)
[2017-10-15] MEDS: ESCITALOPRAM OXALATE 20 MG TAB PO SCH (07:37)
[2017-10-15] MEDS: ASPIRIN 81 MG ECTAB PO SCH (07:37)
[2017-10-15] MEDS: LISINOPRIL/HCTZ 20/25MG TAB PO SCH (07:38)
[2017-10-15] MEDS: MULTIVITAMIN TAB PO SCH (07:38)
[2017-10-15] MEDS: GABAPENTIN 100 MG CAP PO SCH (07:38)
[2017-10-15] MEDS: PANTOprazole SOD 40 MG TAB PO SCH (07:38)
--- NOTE | 2017-10-15 07:50 | Orthopedic Progress Note ---
Orthopedic Progress Note Date of Service Oct 15, 2017. Subjective Post OP Day: 2 Reports: feeling well, pain controlled w PO medications, Denies: complaints, chest pain, SOB, nausea / vomiting, light headedness, calf pain Objective calves soft nontender, N/V intact, capillary refill less than 2 sec., incision C /D/I, A&O x3, toes mobile Date Time Temp Pulse Resp B/P (MAP) Pulse Ox O2 Delivery O2 Flow Rate FiO2 10/15/17 06:45 36.4 73 16 103/63 (76) 96 Room Air 10/14/17 23:20 36.6 76 16 124/68 (86) 95 Room Air 10/14/17 23:19 Room Air 10/14/17 15:34 Room Air 10/14/17 15:14 36.4 75 16 109/65 (80) 98 Room Air 10/14/17 11:10 36.5 63 16 109/64 (79) 95 Room Air 10/14/17 08:00 Room Air Laboratory Results 24 Hours: Test 10/15/17 05:52 Hematocrit 32.5 % Hemoglobin 10.9 g/dL Assessment & Plan Assessment: POD #2, Right TKA Plan: PT/ OT DVT proph- ASA D/C planning- Home w OPPT today As per medicine Inhouse Planning Pain Management: Celebrex, Ultram, Morphine, PO Tylenol, Oxy IR DVT Prophylaxis: TEDs, SCDs, ASA Discharge Planning Discharge Planning: home with oppt Pain Management: Celebrex, PO Tylenol, Oxy IR DVT Prophylaxis: TEDs, ASA Therapy: Physical Therapy, Occupational Therapy
[2017-10-15] MEDS ORDERED: RXC5 PO (07:55)
[2017-10-15] MEDS ORDERED: ASPEC81 PO (07:55)
[2017-10-15] MEDS ORDERED: ONDA8TAB62 PO (07:55)
[2017-10-15] MEDS ORDERED: CLB200 PO (07:55)
[2017-10-15] MEDS ORDERED: ACET-24 PO (07:55)
[2017-10-15 07:57] VITALS: O2SAT 96
--- NOTE | 2017-10-15 07:57 | Discharge Instructions ---
Discharge Instructions Date of Service Oct 15, 2017. Admission Reason for Admission: Right Knee Degenerative Joint Disease Discharge Discharge Diagnosis / Problem: Right TKA Discharge Goals Goal(s): Improve function Activity Recommendations Activity Limitations: as noted below . Instructions / Follow-Up Instructions / Follow-Up ACTIVITY RECOMMENDATIONS: SELF CARE INSTRUCTIONS AFTER TOTAL KNEE REPLACEMENT A. You may need to continue a physical therapy program after discharge from the hospital. There are several options available to you. Your doctor will assist you in selecting the best one for you. 1. An out-patient facility 2 to 3 times a week for therapy or home therapy. 2. Continue working on all exercises taught to you in the hospital. Your goals should be to increase bending of your knee to 90 degrees and beyond and to fully straighten your knee. B. You may progress at your own pace from walking with a walker or crutches to a cane; then to no assistive devices. C. Make walking a part of your daily routine. Be up as much as comfortable with rest periods throughout the day. Rest with leg elevation is very important. Use the ice wrap frequently for the first 3-4 weeks. D. There are no restrictions on activities. You may ride in a car, shop, participate in contestant coordinator and all social activities. E. Wear the long elastic stockings (CARLITA hose) 20 hours a day for 2 weeks after surgery. They can be removed several times a day for laundering and for a bath. F. You may shower, no tub baths until cleared by your doctor. SPECIAL CARE INSTRUCTIONS: VERY IMPORTANT TO READ AND REVIEW A. There are a few signs you need to watch for after you are home. Call [facility] if you notice any of the followin. Increased severe knee pain. Some pain is expected especially when you exercise. 2. Increased swelling in your leg or knee; pain or swelling of the calf muscle in either lower leg. 3. Any fluid drainage from the incision. 4. Shortness of breath or chest pain. B. Please call [facility] at if you have any concerns or questions about your operation or recovery. The doctor or his nurse will return your call promptly. C. You must take antibiotics before dental work, bladder, bowel or other surgery. Your doctor will provide you with a permanent care to carry describing this precaution. IMPORTANT: * REMEMBER TO TAKE ASPIRIN, 81 MG, TWICE DAILY FOR 4 WEEKS UNLESS OTHERWISE DIRECTED. THIS IS YOUR BLOOD THINNER. * HIGH RISK PATIENTS MAY BE PRESCRIBED A STRONGER BLOOD THINNER. THIS WILL BE PROVIDED AT DISCHARGE. * CALL IF INCREASED PAIN, REDNESS, DRAINAGE OR FEVER GREATER THAT 101. * WEAR CARLITA HOSE 20 HOURS PER DAY FOR 2 WEEKS. * YOU MAY HAVE A LARGE BAND-AID LIKE DRESSING (SILVERON). THIS WILL REMAIN ON YOUR INCISION FOR 7 DAYS, THEN CAN BE REMOVED. IF INCISION IS LEAKING THROUGH DRESSING, CALL THE OFFICE . FOLLOW UP VISIT: If appointment is not already scheduled: Please call [facility] to make a follow-up appointment for 2 weeks after your surgery at . Current Hospital Diet Patient's current hospital diet: Regular Diet Discharge Diet Recommended Diet: Regular Diet Procedures Procedures Performed: Right Total Knee Arthroplasty Pending Studies Studies pending at discharge: no Laboratory Results Hemoglobin A1c Test 09/21/17 12:02 Range/Units Estimated Average Glucose 111 mg/dl Hemoglobin A1c 5.5 4.5-5.6 % Lipid Panel Test 08/20/17 10:56 Range/Units Triglycerides Level 159 H 0-150 mg/dl Cholesterol Level 147 0-200 mg/dl HDL Cholesterol 54 mg/dl Cholesterol/HDL Ratio 2.7 LDL Cholesterol, Calculated 61 mg/dl Medical Emergencies . Who to Call and When: Medical Emergencies: If at any time you feel your situation is an emergency, please call 911 immediately. . Non-Emergent Contact Non-Emergency issues call your: Primary Care Provider . "Provider Documentation" section prepared by Kody Amezquita. . VTE Core Measure Inpt VTE Proph given/why not?: Other Anticoagulation (asa), T.E.DGisela Cortes, SCD's [place] Drug Monitoring Program Search Results: patient reviewed within database, no issues identified
[2017-10-15 08:35] VITALS: BP 103/63; PULSE 73; TEMP 36.4; O2SAT 96
== END 2017-10-15 11:13 | disposition home or self-care (01) | DRG 470 ==
LOC: C.ACU 05:56 → C.3E 07:00 → ENRESERV 11:43
PROVIDERS: ADMIT Orthopaedic Surgery Sports Medicine; ATTEND Orthopaedic Surgery Sports Medicine
PROC: 0SRC0J9 Replacement of Right Knee Joint with Synthetic Substitute, Cemented, Open Approach (ICD-10-PCS; principal; 2017-10-13 08:00)
DX: M17.11 Unilateral primary osteoarthritis, right knee (principal); E83.42 Hypomagnesemia; I10 Essential (primary) hypertension; E78.5 Hyperlipidemia, unspecified; E06.3 Autoimmune thyroiditis; E03.9 Hypothyroidism, unspecified; F32.9 Major depressive disorder, single episode, unspecified; F41.9 Anxiety disorder, unspecified; K21.9 Gastro-esophageal reflux disease without esophagitis; J45.909 Unspecified asthma, uncomplicated; G62.9 Polyneuropathy, unspecified; M48.9 Spondylopathy, unspecified; E66.9 Obesity, unspecified; Z68.37 Body mass index [BMI] 37.0-37.9, adult; Z87.39 Personal history of other diseases of the musculoskeletal system and connective tissue; Z98.890 Other specified postprocedural states; Z79.899 Other long term (current) drug therapy; Z88.3 Allergy status to other anti-infective agents; Z88.5 Allergy status to narcotic agent; Z88.7 Allergy status to serum and vaccine; Z88.8 Allergy status to other drugs, medicaments and biological substances; Z98.1 Arthrodesis status; Z96.21 Cochlear implant status; Z90.710 Acquired absence of both cervix and uterus; Z90.722 Acquired absence of ovaries, bilateral; Z90.79 Acquired absence of other genital organ(s); Z98.41 Cataract extraction status, right eye; Z98.42 Cataract extraction status, left eye

== ENCOUNTER → 2018-03-18 | Outpatient (CLI) | payer OTHER, MEDICARE ==
[~2018-03-18] MED LIST changes: +ACET-24 PO; +ASPI-320 PO; +CLB200 PO; -DICL-201 PO; +LISI20TA10 PO; -LSN/2025 PO; +ONDA8TAB62 PO; +POLYSOL4 OPB; +RXC5 PO
== END | disposition home or self-care (01) ==
LOC: C.LABMFLN 15:30
PROVIDERS: ATTEND Family Medicine
DX: E03.9 Hypothyroidism, unspecified (principal)

== ENCOUNTER 2019-09-19 10:13 | Inpatient (IN) ==
--- NOTE | 2019-09-06 13:29 | PAT Medication Instructions ---
Medication Instructions Date of Service September 06, 2019 Home Medications Medication Instructions Recorded albuterol sulfate 90 mcg/actuation 2 puffs INH Q4H PRN #8.5 gm 07/19/19 aerosol inhaler atorvastatin 10 mg tablet 10 mg PO DAILY #90 tab 08/25/19 psyllium husk (with sugar) 3.4 gram oral powder packet 1 tsp PO QPM albuterol sulfate 90 mcg/actuation aerosol inhaler 2 puffs INH Q4H PRN atorvastatin 10 mg tablet 10 mg PO DAILY acetaminophen [Tylenol Extra Strength] 1,500 mg PO UD PRN celecoxib 200 mg PO UD PRN escitalopram oxalate 20 mg PO QAM levothyroxine 75 mcg PO QAM lisinopril-hydrochlorothiazide 1 tab PO HS omeprazole 40 mg PO QAM oxybutynin chloride 10 mg PO UD PRN tramadol 50 mg PO Q6H PRN ASK your surgeon for instructions celecoxib 200 mg PO UD PRN DO NOT take the morning of surgery oxybutynin chloride 10 mg PO UD PRN Take morning of surgery With a small sip of water, OTHERWISE NOTHING TO EAT OR DRINK AFTER MIDNIGHT: albuterol sulfate 90 mcg/actuation aerosol inhaler 2 puffs INH Q4H PRN (use if needed; please bring with you to hospital day of surgery if possible) atorvastatin 10 mg tablet 10 mg PO DAILY acetaminophen [Tylenol Extra Strength] 1,500 mg PO UD PRN (okay to take up to 4 hours prior to surgery if needed) escitalopram oxalate 20 mg PO QAM levothyroxine 75 mcg PO QAM omeprazole 40 mg PO QAM tramadol 50 mg PO Q6H PRN (okay to take up to 4 hours prior to surgery if needed) Take evening before surgery psyllium husk (with sugar) 3.4 gram oral powder packet 1 tsp PO QPM albuterol sulfate 90 mcg/actuation aerosol inhaler 2 puffs INH Q4H PRN (if needed) acetaminophen [Tylenol Extra Strength] 1,500 mg PO UD PRN (if needed) lisinopril-hydrochlorothiazide 1 tab PO HS oxybutynin chloride 10 mg PO UD PRN(if needed) tramadol 50 mg PO Q6H PRN (if needed) Other Notes If you have any questions please call us at [phone] or [phone] or [phone] or [phone]
--- NOTE | 2019-09-07 13:12 | Anesthesiology Consultation ---
Date of Service September 07, 2019 Assessment & Plan (1) Encounter for pre-operative examination: Chart Review Chart Review: Acceptable Risk for Surgery and Patient seen in Pre Admission Testing Teaching & Discussion Instructed NPO after midnight before surgery, except medications with 15 cc of water. Medication instructions provided according to the PAT guidelines. History Surgery Operation Date: 09/19/19 12:55 Proposed Procedures p L3-L5 Decompression and Fusion, L5-S1 Hardware Removal, Spinal Cord Monitoring - Klever Castillo, Height/Weight Height: 5 ft 2 in Weight: 84.7 kg Allergies Allergy/AdvReac Type Severity Reaction Status Date / Time adhesive Allergy Unknown SKIN Verified 09/05/19 10:49 REDDNESS IRRITATION chlorhexidine Allergy Unknown Rash at Verified 09/05/19 10:24 Contact Site dicloxacillin Allergy Unknown hives, gi Verified 09/05/19 10:24 upset meperidine Allergy Unknown RASH Verified 09/05/19 10:24 phenytoin Allergy Unknown RASH Verified 09/05/19 10:24 propoxyphene Allergy Unknown RASH Verified 09/05/19 10:24 tetanus toxoid, adsorbed Allergy Unknown RASH Verified 09/05/19 10:24 aspirin AdvReac Unknown GI UPSET Verified 09/05/19 10:24 Medications Home Medications Medication Instructions Recorded Confirmed Last Taken psyllium husk (with sugar) 3.4 1 tsp PO QPM ea 01/12/19 09/05/19 07/31/19 gram oral powder packet albuterol sulfate 90 mcg/actuation 2 puffs INH Q4H PRN #8.5 gm 07/19/19 09/05/19 Unknown aerosol inhaler atorvastatin 10 mg tablet 10 mg PO DAILY #90 tab 08/25/19 09/05/19 Unknown acetaminophen [Tylenol Extra 1,500 mg PO UD PRN 09/05/19 09/05/19 Unknown Strength] celecoxib 200 mg PO UD PRN 09/05/19 09/05/19 Unknown escitalopram oxalate 20 mg PO QAM 09/05/19 09/05/19 Unknown levothyroxine 75 mcg PO QAM 09/05/19 09/05/19 Unknown lisinopril-hydrochlorothiazide 1 tab PO HS 09/05/19 09/05/19 Unknown omeprazole 40 mg PO QAM 09/05/19 09/05/19 Unknown oxybutynin chloride 10 mg PO UD PRN 09/05/19 09/05/19 Unknown tramadol 50 mg PO Q6H PRN 09/05/19 09/05/19 Unknown Past Medical History Medical History (Updated 09/08/19 @ 08:29 by Aakash Galeas) Anxiety Asthma EXACERBATION END OF JULY/EARLY AUGUST ABX & STEROID TX COMPLETE...RESOLVED Cochlear implant in place R DDD (degenerative disc disease) History of high cholesterol History of vertigo Hypertension Hypothyroid Phlegm in throat MORNINGS DURING WINTER, RESOLVES THROUGHOUT DAY Exercise / Class Metabolic Activity II 4-5 Yardwork/Stairs/Walk up hill (Denies Cp or SOB with 1 FOS) Past Family History Family History Mother Hearing loss Mother Family history of diabetes mellitus (DM) Sister Family history of diabetes mellitus (DM) Past Surgical History Surgical History (Updated 09/08/19 @ 08:35 by Aakash Galeas) H/O hysterectomy for benign disease H/O mastoidectomy History of cholecystectomy History of cochlear implant History of colonoscopy History of esophagogastroduodenoscopy (EGD) History of lumbar fusion History of neck surgery FUSION, DENIES LIMITED ROM History of repair of left rotator cuff History of repair of right rotator cuff History of total right knee replacement [facility] 10/2017 -- SAB and REGIONAL X 1 ATTEMPT EACH. S/P anal fissurectomy Past Anesthesia History No Hx of Anesthesia Complications and No Family Hx of Anesthesia Complications (none known) History of PONV No Hx of PONV and Hx of Motion Sickness Social History Smoking Status: Never smoker Do You Dip or Chew Tobacco: No Hx Alcohol Use: No Hx Substance Use: No Review of Systems Pt denies any recent chest pain, shortness of breath, palpitations, cough, fever or URI. Physical Exam Vital Signs BP: 115/69 P: 70bpm SPO2: 97% RA T: 98.6 F R: 16 ENMT Mouth: + dentures (full upper, partial lower) and + chipped teeth (filling fell out of bottom R incisor, to be filled prior to surgery) Thyromental Distance: < 3.5 Finger Breadths (3) Mallampati Class: II HEARING AID LEFT EAR Neck normal visual inspection and + limited neck extension (moderately) Respiratory normal respiratory effort Auscultation: lungs clear to auscultation bilaterally Cardiovascular Rate/Rhythm: regular rate and regular rhythm Heart Sounds: no murmur Extremities: no edema Testing Laboratory Results 09/07/19 13:27 09/07/19 13:27 PT 10.3 Seconds (9.0-12.0) 09/07/19 13:27 INR 1.0 (0.9-1.1) 09/07/19 13: APTT 24.0 Seconds (21.0-31.0) 09/07/19 13:27 Urine Color Dark Yellow 09/07/19 Unknown Urine Appearance Clear (Clear) 09/07/19 Unknown Urine pH 6.5 (4.5-7.5) 09/07/19 Unknown Ur Specific [place] 1.020 (1.000-1.030) 09/07/19 Unknown Urine Protein Negative (Negative) 09/07/19 Unknown Urine Glucose (UA) Negative (Negative) 09/07/19 Unknown Urine Ketones Negative (Negative) 09/07/19 Unknown Urine Nitrite Negative (Negative) 09/07/19 Unknown Ur Leukocyte Esterase Negative (Negative) 09/07/19 Unknown Blood Type A Negative 09/07/19 13:27 Antibody Screen NEGATIVE 09/07/19 13:27 Electrocardiogram Date: 09/07/19 Findings: + NSR @ (70bpm with sinus arrhythmia) Chest X-Ray Date: 09/07/19 Findings: + NAD
--- NOTE | 2019-09-07 14:17 | XRay Report ---
XR chest Pre-admission PA/Lat CLINICAL HISTORY: pat preoperative evaluation COMPARISON STUDY: 09/18/2011 FINDINGS: The bones soft tissues and hemidiaphragms are normal. The cardiomediastinal silhouette is n ormal. The lungs are clear. The pulmonary vasculature is normal. IMPRESSION: Negative chest. ACT 112: Negative or not required by law. The above report was generated using voice recognition software. It may contain grammatical, syntax or spelling errors. Electronically signed by: Kody Santana M.D. 09/07/2019 2:15 PM
[2019-09-07 15:27] LABS: Basophils # (auto) 0.06 K/uL (0-0.2); Basophils % (auto) 0.8 %; Eosinophils # (auto) 0.15 K/uL (0-0.5); Eosinophils % (auto) 2.1 %; Hematocrit (blood only) 38.6 % (37-47); Hemoglobin 13.1 g/dL (12.0-16.0); Lymphocytes # (auto) 1.85 K/uL (1.2-3.4); Lymphocytes % (auto) 25.3 %; Mean Corpuscular Hemoglobin 33.4 pg (25-34); Mean Corpuscular Hgb Conc 33.9 g/dL (32-36); Mean Corpuscular Volume 98.5 fL (80-100); Mean Platelet Volume 9.8 fL (7.4-10.4); Monocytes % (auto) 6.8 %; Neutrophils # (auto) 4.75 K/uL (1.4-6.5); Platelet Count 445 K/uL (130-400); RDW Coefficient of Variation 13.1 % (11.5-14.5); Red Blood Count 3.92 M/uL (4.2-5.4); White Blood Count 7.31 K/uL (4.8-10.8)
[2019-09-07 15:30] LABS: Appearance Urine Clear (Clear); Bilirubin Urine Negative (Negative); Blood Urine Negative (Negative); Color Urine Dark Yellow; Glucose Urine UA Negative (Negative); Ketones Urine Negative (Negative); Leukocyte Esterase Urine Negative (Negative); Nitrite Urine Negative (Negative); Protein Urine Negative (Negative); Urobilinogen Urine Negative (Negative); pH Urine 6.5 (4.5-7.5)
[2019-09-07 15:37] LABS: BUN Creatinine Ratio 9.7 (10-20); Calcium 9.8 mg/dl (8.5-10.1); Creatinine Clr Calc Pharmacy 52.3 ml/min; Est GFR (African American) 65.3; Est GFR (Non-African American) 56.4; Potassium 4.2 mmol/L (3.5-5.1)
[2019-09-07 15:47] LABS: Partial Thromboplastin Ratio 0.9; Prothrombin Time 10.3 Seconds (9.0-12.0)
--- NOTE | 2019-09-08 06:02 | Electrocardiogram Report ---
Test Reason : Blood Pressure : / mmHG Vent. Rate : 070 BPM Atrial Rate : 070 BPM P-R Int : 166 ms QRS Dur : 084 ms QT Int : 408 ms P-R-T Axes : 069 037 055 degrees QTc Int : 440 ms Normal sinus rhythm with sinus arrhythmia Normal ECG When compared with ECG of 21-SEP-2017 11:55, Premature atrial complexes are no longer Present Confirmed by Randy Srinivasan ([id number]) on 09/08/2019 6:02:13 AM Referred By: Klever Castillo Confirmed By:Randy Srinivasan
[~2019-09-19 10:13] MED LIST changes: -ACET-24 PO; +ACETAMINOPHEN 500 MG TAB PO SCH; -ASPI-320 PO; -ATOR10TA82 PO; -ATR25 PO; +CEFAZOLIN 2000MG 2,000 MG/15 ML SYR IV SCH; -CLB200 PO; +CeleBREX 200 MG CAP PO SCH; -ESCI1TAB10 PO; -GABA-112 PO; +GABAPENTIN 300 MG CAP PO SCH; -LEVO50TA PO; -LISI20TA10 PO; +LR 15ML/HR IV SCH; +MIDAZOLAM HCL 1 MG/ML 2ML VIAL ONE; -OMEP40CA41 PO; -ONDA8TAB62 PO; -POLYSOL4 OPB; -RXC5 PO; -VNTHFA/IN INH; +fentaNYL citrate 100 MCG/2 ML VIAL ONE
--- NOTE | 2019-09-19 11:34 | History & Physical Bridge Note ---
Date of Service September 19, 2019 History & Physical Bridge Note I have examined the patient, reviewed the History & Physical and in the interval since the performance of the History & Physical I have noted the following changes of clinical significance: no changes noted
--- NOTE | 2019-09-19 11:35 | History & Physical Report ---
Date of Service September 19, 2019 Assessment & Plan (1) Spinal stenosis of lumbar region with radiculopathy: L3-L5 decompression fusion, L5-S1 hardware removal Present on Admission?: Yes History of Present Illness Chief Complaint: Back and leg pain Primary Care Provider: Feroz Lance MD This is a 69-year-old female known to me that presents with worsening back and leg pain. Failing extensive course of nonoperative care she is here for surgical intervention. Allergies Allergy/AdvReac Type Severity Reaction Status Date / Time dicloxacillin Allergy Mild hives, gi Verified 09/19/19 11:12 upset adhesive Allergy Unknown SKIN Verified 09/19/19 10:42 REDDNESS IRRITATION meperidine Allergy Unknown RASH Verified 09/19/19 10:42 phenytoin Allergy Unknown RASH Verified 09/19/19 10:42 propoxyphene Allergy Unknown RASH Verified 09/19/19 10:42 tetanus toxoid, adsorbed Allergy Unknown RASH Verified 09/19/19 10:42 aspirin AdvReac Unknown GI UPSET Verified 09/19/19 10:42 Home Medications Home Medications Medication Instructions Recorded Confirmed Type psyllium husk (with sugar) 3.4 1 tsp PO QPM ea 01/12/19 09/19/19 History gram oral powder packet albuterol sulfate 90 mcg/actuation 2 puffs INH Q4H PRN #8.5 gm 07/19/19 09/19/19 Rx aerosol inhaler atorvastatin 10 mg tablet 10 mg PO DAILY #90 tab 08/25/19 09/19/19 Rx acetaminophen [Tylenol Extra 1,500 mg PO UD PRN 09/05/19 09/19/19 History Strength] celecoxib 200 mg PO UD PRN 09/05/19 09/19/19 History escitalopram oxalate [Lexapro] 20 mg PO QAM 09/05/19 09/19/19 History levothyroxine 75 mcg PO QAM 09/05/19 09/19/19 History lisinopril-hydrochlorothiazide 1 tab PO HS 09/05/19 09/19/19 History tramadol 50 mg PO Q6H PRN 09/05/19 09/19/19 History omeprazole 40 mg capsule,delayed 40 mg PO QAM #90 cap 09/15/19 09/19/19 Rx release oxybutynin chloride 10 mg 10 mg PO DAILY PRN tab 09/15/19 09/19/19 History tablet,extended release 24 hr Past Med/Surg History Medical History (Updated 09/19/19 @ 11:35 by Klever Castillo DO) Anxiety Asthma EXACERBATION END OF JULY/EARLY AUGUST ABX & STEROID TX COMPLETE...RESOLVED Chronic left-sided low back pain Cochlear implant in place R DDD (degenerative disc disease) History of high cholesterol History of vertigo Hypertension Hypothyroid Phlegm in throat MORNINGS DURING WINTER, RESOLVES THROUGHOUT DAY Surgical History (Updated 09/08/19 @ 08:35 by Aakash Galeas) H/O hysterectomy for benign disease H/O mastoidectomy History of cholecystectomy History of cochlear implant History of colonoscopy History of esophagogastroduodenoscopy (EGD) History of lumbar fusion History of neck surgery FUSION, DENIES LIMITED ROM History of repair of left rotator cuff History of repair of right rotator cuff History of total right knee replacement [facility] 10/2017 -- SAB and REGIONAL X 1 ATTEMPT EACH. 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 Results & Data Vital Signs (Past 12 Hours) Vital Signs Temp Pulse Resp BP Pulse Ox 09/19/19 10:49 36.7 C 79 18 153/72 H 95
[2019-09-19] MEDS ORDERED: HYDROmorphone INJ 2 MG/ML SYR/VIAL IV PRN (11:48)
[2019-09-19] MEDS ORDERED: PROMETHAZINE HCL 12.5 MG in SODIUM CHLORIDE 0.9% 50 ML IV PRN ×2 (11:48→15:48)
[2019-09-19] MEDS ORDERED: fentaNYL citrate 100 MCG/2 ML VIAL IV PRN (11:48)
[2019-09-19] MEDS ORDERED: BUPIVACAINE/EPINEPHRINE 0.25% 1:200,000 30 ML VIAL ONE (11:48)
[2019-09-19] MEDS ORDERED: METOCLOPRAMIDE HCL INJ 5 MG/ML 2 ML VIAL IV PRN ×2 (11:48→15:48)
[2019-09-19] MEDS ORDERED: ONDANSETRON INJ 2 MG/ML 2 ML VIAL IV PRN ×2 (11:48→15:48)
[2019-09-19] MEDS ORDERED: ePHEDrine sulfate 50 MG/ML AMP IV PRN (11:48)
[2019-09-19] MEDS ORDERED: BACITRACIN INJ 50,000 UNIT VIAL ONE (11:48)
[2019-09-19] MEDS ORDERED: ATROPINE SULFATE 0.1 MG/ML 10ML SYR IV PRN (11:48)
[2019-09-19] MEDS ORDERED: CLINDAMYCIN 600 MG/54 ML D5W IV ONE (11:49)
[2019-09-19] MEDS ORDERED: CLINDAMYCIN 600 MG/54 ML BAG IV SCH (12:00)
[2019-09-19] MEDS ORDERED: FLOSEAL HEMOSTATIC MATRIX 10ML TOP ONE (12:31)
[2019-09-19] MEDS ORDERED: HYDROmorphone INJ 2 MG/ML SYR/VIAL ONE (12:49)
[2019-09-19] MEDS ORDERED: ePHEDrine sulfate 50 MG/ML SYR ONE (12:53)
[2019-09-19] MEDS ORDERED: NEOSTIGMINE METHYLSULFATE 1 MG/ML 10ML VIAL ONE (12:53)
[2019-09-19] MEDS ORDERED: LARYING-O-JET KIT (LTA) ONE (12:53)
[2019-09-19] MEDS ORDERED: PHENYLEPHRINE 100MCG/ML 5ML SYR ONE (12:53)
[2019-09-19] MEDS ORDERED: PROPOFOL IV EMULSION 10 MG/ML 20 ML VIAL IV ONE (12:53)
[2019-09-19] MEDS ORDERED: DEXAMETHASONE SOD INJ 4 MG/ML VIAL ONE (12:53)
[2019-09-19] MEDS ORDERED: ONDANSETRON INJ 2 MG/ML 2 ML VIAL ONE (12:53)
[2019-09-19] MEDS ORDERED: GLYCOPYRROLATE 0.2 MG/ML VIAL ONE (12:53)
[2019-09-19] MEDS ORDERED: ROCURONIUM BROMIDE 10 MG/ML 5 ML VIAL ONE (12:53)
[2019-09-19] MEDS ORDERED: LIDOCAINE HCL 2% 2 ML VIAL/AMP(20MG/ML) INFIL ONE (12:53)
--- NOTE | 2019-09-19 14:04 | Operative Report ---
Post Operative Report Pre & Post Diagnosis Operation Date: 09/19/19 12:35 Pre-Op Diagnosis: LUMBAR SPINAL STENOSIS WITH NEUROGENIC CLAUDICATION Post-Op Diagnosis: LUMBAR SPINAL STENOSIS WITh NEUROGENIC CLAUDICATION I identified the patient and participated in the time-out.: Yes Procedure Operation Date: 09/19/19 12:35 Actual Procedures #1 removal of instrumentation L5-S1. #2 expiration fusion L5-S1 per #3 lumbar decompression with bilateral medial facetectomies and foraminotomies L3-4 L4-5. #4 posterior spinal fusion L3-4 L4-5 per #5 placement posterior instrumentation L3-4 L4-5. #6 interbody fusion L3-4. #7 placed a peek cage 9 x 22 mm at L3-4. #8 placement locally harvested morselized autograft in the posterior lateral gutters. #9 placement infuse collagen sponge bone master graft in the posterior lateral gutters and ostial amp and interbody space. Surgeon Klever Castillo, [employer] Product Owner Whitley Mclaughlin Estimated Blood Loss 150 Findings Consistent with Post-Op Diagnosis Specimens None Indications This is a 69-year-old female well-known to the presents with above-mentioned diagnosis after failing since course of nonoperative care is here for surgical intervention. Description of Procedure Patient was met with identified informed consent obtained. Patient was then taken to the operative suite underwent intubation placed in prone position Rush table on top Brian frame. All bony prominences well-padded eyes inspected to ensure no external pressure placed upon. This point lumbar spine was prepped and draped in normal sterile fashion. Sharp dissection with the assistance of Bovie cautery performed down to and exposing the lamina and transverse processes of L3-L4 and instrumentation at L5 and S1 levels bilaterally. Then proceeded to move the hardware at L5-S1 exploring the fusion mass noting to be intact. Then performed a complete laminectomy of L4 and L3 from a caudal cephalad fashion including medial facetectomies and foraminotomies addressing severe spinal stenosis. Pedicle screw was then placed in L3-L4-L5 bilaterally with assistance of fluoroscopy and proper sized judith placed. By way of a transforaminal approach left complete discectomy of L3-4 was performed endplates coated to subcortical bleeding bone and a 9 x 22 peek cage filled with osteo-bone graft tapped position. The rods and locked in final position bilaterally. Transverse processes of L3-L4-L5 bur to subcortical bleeding bone. Infuse collagen sponge master graft local autograft placed in the posterior lateral gutters. 15 round SHAVONNE drain was then inserted. Incision was then closed with 1 Vicryl the fascia 2-0 Vicryl subcutaneously and 4 Monocryl for final skin closure. Steri-Strips dressings placed. Patient will continue to PACU stable disc. Please note Whitley Mclaughlin present at the entire procedure involved the patient positioning complex portions of the surgery and final skin closure. Lastly spinal cord monitoring was utilized that the procedure no changes noted. I attest to the content of the Intraoperative Record and any orders documented therein. Any exceptions are noted below.
--- NOTE | 2019-09-19 14:22 | Fluoroscopy Report ---
FL lumbar spine 2-3V CLINICAL HISTORY: L3-L5 DECOMPRESSION AND FUSION L5-S1 HW REMOVAL COMPARISON STUDY: Lumbar spine CT August 01, 2019. FLUOROSCOPY TIME: 11 seconds. FLUOROSCOPIC IMAGES: 2 FINDINGS: Previous L5-S1 discectomy is noted. Hardware removal is noted. There is an interval L3-L4 d iscectomy with interbody spacer placement. Note is made of a posterior decompression with bilateral p edicle screws at the L3, L4 and L5 levels with interconnecting rods. IMPRESSION: Fluoroscopy provided for interval L3-L4 discectomy with posterior decompression and L3-L 5 bilateral pedicle screw fusion. ACT 112: Negative or not required by law. Electronically signed by: Kaleb Padilla M.D. 09/19/2019 2:21 PM
[2019-09-19] MEDS ORDERED: METOPROLOL TARTRATE 1 MG/ML VIAL IV ONE (14:51)
--- NOTE | 2019-09-19 15:39 | Anesthesiology Progress Note ---
Date of Service September 19, 2019 Anesthesia Post Procedure Vital Signs Vital Signs: Temp Pulse Pulse Pulse Resp BP BP 09/19/19 15:20 99 H 19 95/60 L 09/19/19 15:05 37.2 C 98 H 22 128/50 L 09/19/19 14:55 101 H 19 126/70 09/19/19 14:53 120 H 145/60 H 09/19/19 14:45 120 H 18 130/60 09/19/19 14:35 115 H 17 126/76 09/19/19 14:25 112 H 12 153/58 H 09/19/19 14:18 36.3 C L 121 H 15 151/60 H 09/19/19 10:49 36.7 C 79 18 BP Pulse Ox 09/19/19 15:20 93 09/19/19 15:05 94 09/19/19 14:55 95 09/19/19 14:53 09/19/19 14:45 93 09/19/19 14:35 94 09/19/19 14:25 95 09/19/19 14:18 97 09/19/19 10:49 153/72 H 95 Pain Intensity Left Lower Back: Pain Intensity: 8 Transfer of Care Handoff Completed per policy Notes Mental Status: alert / awake / arousable and participated in evaluation Patient Amnestic to Procedure: Yes Nausea / Vomiting: adequately controlled Pain: adequately controlled Airway Patency, RR, SpO2: stable & adequate BP & HR: stable & adequate Hydration State: stable & adequate Anesthetic Complications: no major complications apparent
[2019-09-19] MEDS: SODIUM CHLORIDE 0.9% 1000ML 1,000 ML IV SCH (15:40)
[2019-09-19] MEDS ORDERED: LORazepam 0.5 MG TAB PO PRN (15:48)
[2019-09-19] MEDS ORDERED: DO NOT ADMINISTER PNEUMOCOCCAL VACCINE PRN (15:48)
[2019-09-19] MEDS ORDERED: SOD PHOSPHATE/SOD BIPHOSPHATE ENEMA 132 ML BTL PR PRN (15:48)
[2019-09-19] MEDS ORDERED: HYDROmorphone INJ 1 MG/ML SYRINGE IV PRN (15:48)
[2019-09-19] MEDS ORDERED: ACETAMINOPHEN 1,000 MG/100 ML VIAL IV PRN (15:48)
[2019-09-19] MEDS ORDERED: ONDANSETRON 4 MG OD TAB PO PRN (15:48)
[2019-09-19] MEDS ORDERED: MAGNESIUM HYDROXIDE SUSP 30 ML UDC PO PRN (15:48)
[2019-09-19] MEDS ORDERED: LORazepam 0.5 MG/1 ML VIAL IV PRN (15:48)
[2019-09-19] MEDS ORDERED: DO NOT ADMINISTER FLU VACCINE PRN (15:48)
[2019-09-19] MEDS ORDERED: ALUMINUM/MAGNESIUM SUSP 30 ML UDC PO PRN (15:48)
[2019-09-19] MEDS ORDERED: HYDROmorphone INJ 0.5 MG/0.5 ML SYR IV PRN (15:48)
[2019-09-19] MEDS ORDERED: ALBUTEROL HFA 8 GM INHALER INH PRN (15:48)
[2019-09-19] MEDS ORDERED: OXYBUTYNIN CHLORIDE XL 5 MG TABCR PO PRN (15:48)
[2019-09-19] MEDS ORDERED: FAMOTIDINE 20 MG TAB PO PRN (15:48)
[2019-09-19] MEDS ORDERED: bisacodyL 10 MG SUPP PR PRN (15:48)
[2019-09-19] MEDS ORDERED: NALOXONE HCL 0.4 MG/1 ML VIAL/CARP IV PRN (15:48)
[2019-09-19] MEDS ORDERED: TRAMADOL HCL 50 MG TABLET PO PRN (15:48)
--- NOTE | 2019-09-19 19:03 | Hospitalist Progress Note ---
Date of Service September 19, 2019 Assessment & Plan (1) Spinal stenosis of lumbar region with radiculopathy: Doing well postop. Otherwise per orthopedics. (2) Asthma: Stable. Lungs are clear, no wheezing, no shortness of breath. Continue to follow. Albuterol as needed, although I highly doubt she will need it (3) Hypothyroidism: Continue home medications (4) Hypertension: She was instructed by her PCP to hold her lisinopril/hydrochlorothiazide this morning, continue to follow pressures postop, depending on her pressures and her labs tomorrow, we will likely resume her medications in the morning. (5) DVT prophylaxis: Per orthopedics (mechanical at this time) (6) Discharge planning issues: PT/OT eval and treat Subjective Feeling good postop. She notes that she was overjoyed whenever she did not feel the pain in her buttocks anymore. Denies any shortness of breath. Overall feels well. Notes that her asthma really only flares up about once a year whenever the weather for starts to get cold. Review of Systems Review of Systems: All systems reviewed & are unremarkable except as noted in HPI & below Physical Exam Physical Exam: General she is awake and alert pleasant no distress. HEENT normocephalic atraumatic mucous membranes moist. Cardio is regular without rubs murmurs gallops. Lungs clear to auscultation bilaterally no rales rhonchi or wheeze with good effort. Extremities show no cyanosis or clubbing. Neuro shows no focal deficits. Results & Data ([facility]) Vital Signs (Past 12 Hours) Vital Signs Temp Pulse Pulse Pulse Pulse Pulse Resp 09/19/19 18:35 98.1 F 93 H 09/19/19 17:40 98.1 F 92 H 16 09/19/19 16:40 98.2 F 91 H 16 09/19/19 16:10 98.2 F 99 H 16 09/19/19 15:40 98.2 F 102 H 15 09/19/19 15:20 99 H 09/19/19 15:05 99.0 F 98 H 22 09/19/19 14:55 101 H 09/19/19 14:53 120 H 09/19/19 14:45 120 H 18 09/19/19 14:35 115 H 09/19/19 14:25 112 H 12 09/19/19 14:18 97.3 F L 121 H 15 09/19/19 10:49 98.1 F 79 18 BP BP BP Pulse Ox 09/19/19 18:35 108/60 95 09/19/19 17:40 106/66 95 09/19/19 16:40 104/64 94 09/19/19 16:10 97/62 L 95 09/19/19 15:40 117/56 L 95 09/19/19 15:20 95/60 L 93 09/19/19 15:05 128/50 L 94 09/19/19 14:55 126/70 95 09/19/19 14:53 145/60 H 09/19/19 14:45 130/60 93 09/19/19 14:35 126/76 94 09/19/19 14:25 153/58 H 95 09/19/19 14:18 151/60 H 97 09/19/19 10:49 153/72 H 95 PG Care Time/CCT Total # of Minutes Spent Total Time Spent with Patient: Total time spent is greater than 50% in coordination of care (as documented) at patient's floor/unit and/or counseling patient: Coding Level of Care Code 42972 Subseq Hosp Care Lvl 2 Diagnoses Spinal stenosis of lumbar region with radiculopathy M48.061; M54.16 Asthma J45.909 Hypothyroidism E03.9 Hypertension I10 DVT prophylaxis Z29.9 Discharge planning issues Z02.9
[2019-09-19] MEDS: ACETAMINOPHEN 500 MG TAB PO PRN (20:29)
[2019-09-19] MEDS: CLINDAMYCIN 600 MG in DEXTROSE 5% 50 ML IV SCH (20:29)
[2019-09-19] MEDS: PSYLLIUM 58.6% POWDER PACKET PO SCH (20:30)
[2019-09-19] MEDS: DOCUSATE SODIUM/SENNA 50/8.6MG TAB PO SCH (20:31)
[2019-09-19] MEDS ORDERED: LISINOPRIL/HCTZ 20/25MG 1 TAB PO SCH (21:00)
[2019-09-20] MEDS: SODIUM CHLORIDE 0.9% 1000ML 1,000 ML IV SCH (01:40)
[2019-09-20] MEDS: CLINDAMYCIN 600 MG in DEXTROSE 5% 50 ML IV SCH (04:03)
[2019-09-20] MEDS ORDERED: COUGH DROP (SUGAR FREE) LOZ 24 LOZ/1 BOX BUCCAL STA (04:08)
[2019-09-20 05:28] LABS: Hematocrit (blood only) 30.7 % (37-47); Hemoglobin 10.4 g/dL (12.0-16.0); Immature Granulocytes # (auto) 0.02 K/uL (0.00-0.02); Immature Granulocytes % (auto) 0.2 %; Lymphocytes # (auto) 0.93 K/uL (1.2-3.4); Lymphocytes % (auto) 9.5 %; Mean Corpuscular Hemoglobin 33.1 pg (25-34); Mean Corpuscular Hgb Conc 33.9 g/dL (32-36); Mean Corpuscular Volume 97.8 fL (80-100); Mean Platelet Volume 9.1 fL (7.4-10.4); Monocytes # (auto) 0.63 K/uL (0.11-0.59); Monocytes % (auto) 6.4 %; Neutrophils # (auto) 8.23 K/uL (1.4-6.5); Neutrophils % (auto) 83.9 %; Platelet Count 370 K/uL (130-400); RDW Coefficient of Variation 12.9 % (11.5-14.5); RDW Standard Deviation 45.7 fL (36.4-46.3); Red Blood Count 3.14 M/uL (4.2-5.4); White Blood Count 9.81 K/uL (4.8-10.8)
[2019-09-20] MEDS: POLYETHYLENE (MIRALAX) 17 GM PACK PO SCH ×4 (05:36→23:50)
[2019-09-20] MEDS: LEVOTHYROXINE SODIUM 75 MCG TABLET PO SCH (05:36)
[2019-09-20 05:55] LABS: BUN Creatinine Ratio 11.2 (10-20); Calcium 8.4 mg/dl (8.5-10.1); Est GFR (African American) 47.7; Est GFR (Non-African American) 41.1
[2019-09-20] MEDS: OXYCODONE HCL IR 5 MG TAB (IMMEDIATE RELEASE) PO PRN ×3 (07:35→23:37)
[2019-09-20] MEDS: ATORVASTATIN 10 MG TAB PO SCH (08:31)
[2019-09-20] MEDS: ESCITALOPRAM OXALATE 20 MG TAB PO SCH (08:31)
[2019-09-20] MEDS: PANTOprazole 40 MG TAB PO SCH (08:32)
[2019-09-20 08:39] LABS: Potassium 3.7 mmol/L (3.5-5.1)
[2019-09-20] MEDS: LACTATED RINGER'S 1,000 ML IV SCH ×2 (10:44→23:06)
--- NOTE | 2019-09-20 11:13 | Orthopedic Progress Note ---
Date of Service September 20, 2019 Assessment & Plan (1) Spinal stenosis of lumbar region with radiculopathy: This time we will continue physical therapy monitor SHAVONNE output hopefully discharge over the next few days. Present on Admission?: Yes Subjective Back pain controlled leg pain improved. Physical Exam Physical Exam: Patient is in the chair at the bedside is good strength testing. Results & Data ([facility]) Vital Signs (Past 12 Hours) Vital Signs Temp Pulse Resp BP Pulse Ox 09/20/19 07:28 36.7 C 89 16 118/70 94 09/20/19 02:41 36.6 C 83 15 103/63 91 09/19/19 23:23 36.8 C 93 H 15 100/59 L 93
--- NOTE | 2019-09-20 13:00 | Hospitalist Progress Note ---
Date of Service September 20, 2019 Assessment & Plan (1) Spinal stenosis of lumbar region with radiculopathy: Doing well overall postop. PT/OT eval and treat. Otherwise per orthopedics. (2) Asthma: Stable. no need for intervention at this time. (3) Hypothyroidism: Continue home medications (4) Hypertension: BP in the low-end of acceptable -- and in d/w pt she notes usually running like this at home as well accompanied by what sounds to be a bit of orthostatic dizziness. will hold meds indefinitely and follow (she does relate some weight loss from stress/pain - possibly her weight loss (while unintentional, and due to pain) has obviated the need for her meds. after discharge if meds have not needed to be resumed, would have her still follow pressures closely. (5) DVT prophylaxis: Per orthopedics (mechanical at this time) (6) Discharge planning issues: PT/OT eval and treat (7) LATIA (acute kidney injury): gentle IVF, hold BP meds, follow. fortunately mild (8) Anemia: acute blood loss related to surgery, in expected range. no indications for transfusion at this time. follow. (9) Headache: c/w muscle tension - see below (OMT) (10) Somatic dysfunction of cervical region: OMT as above (11) Stress: significant stress as it relates to her recent struggle with pain and a long drawn out process navigating the medical system. offered empathy and support but also implored pt to look more to the future and recovery instead of the past and struggling/suffering, as i have seen patients fall into depressive type illnesses from similar and certainly don't want her to do the same. also discussed "cheat codes" as far as how to work around a system that is often bureaucratically inefficient, hard to navigate, and understaffed. (see discharge instructions) Subjective back and leg pain on and off here and there, but nothing like it was before. breathing fine. when discussing BP she notes that she frequently runs in this range at home as well, and at times is a little lightheaded. has followed with PCP in regards to BP for quite some time, but hasn't really mentioned this to PCP. also tearfully recounts the last ~5 months of pain and waiting for appt for spine, frustrations with other visits prior, frustration with not being able to have pain under better control until now, etc. offered empathy, support, and guidance as best i could. also notes a headache today. Review of Systems Review of Systems: All systems reviewed & are unremarkable except as noted in HPI & below notes weight loss she relates to stress/pain Physical Exam Physical Exam: gen aaox3 pleasant but also tearful at times, nad. heent nc at mmm. breathing unlabored no accessory muscles good effort. ost/msk - R>L suboccipitals high tone/very tender/decreased ROM - inhibitory pressure and unwinding - improved. pt tolerated well. no focal neuro deficits. skin no rashes no pallor or icterus. Results & Data ([facility]) Vital Signs (Past 12 Hours) Vital Signs Temp Pulse Resp BP Pulse Ox 09/20/19 12:00 98.2 F 78 16 97/58 L 94 09/20/19 07:28 98.1 F 89 16 118/70 94 09/20/19 02:41 97.9 F 83 15 103/63 91 PG Care Time/CCT Total # of Minutes Spent Total Time Spent with Patient: time in ~920, time out ~955a, ~35 mins face to face Total time spent is greater than 50% in coordination of care (as documented) at patient's floor/unit and/or counseling patient: Coding Level of Care Code 11198 Subseq Hosp Care Lvl 3 Diagnoses Spinal stenosis of lumbar region with radiculopathy M48.061; M54.16 Asthma J45.909 Hypothyroidism E03.9 Hypertension I10 DVT prophylaxis Z29.9 Discharge planning issues Z02.9 LATIA (acute kidney injury) N17.9 Anemia D64.9 Headache R51 Somatic dysfunction of cervical region M99.01 Stress F43.9 CPT Codes Musculoskeletal - Musculoskeletal: 804[address] Oste[address] Sukhdeep Tr 1-2 Body regions ([id number])
--- NOTE | 2019-09-20 13:05 | Billing Data ---
Date of Service September 20, 2019 Coding Level of Care Code 99307 Prolonged Care (int'l)
[2019-09-20] MEDS: DOCUSATE SODIUM/SENNA 50/8.6MG TAB PO SCH (20:18)
[2019-09-20] MEDS: PSYLLIUM 58.6% POWDER PACKET PO SCH (20:18)
[2019-09-20] MEDS: ACETAMINOPHEN 500 MG TAB PO PRN (23:40)
[2019-09-21] MEDS: LEVOTHYROXINE SODIUM 75 MCG TABLET PO SCH (05:28)
[2019-09-21] MEDS: POLYETHYLENE (MIRALAX) 17 GM PACK PO SCH ×3 (05:28→17:25)
[2019-09-21 06:52] LABS: BUN Creatinine Ratio 12.7 (10-20); Calcium 8.9 mg/dl (8.5-10.1); Creatinine Clr Calc Pharmacy 53.5 ml/min; Est GFR (African American) 67.7; Est GFR (Non-African American) 58.4; Potassium 3.6 mmol/L (3.5-5.1)
[2019-09-21] MEDS: ESCITALOPRAM OXALATE 20 MG TAB PO SCH (08:03)
[2019-09-21] MEDS: PANTOprazole 40 MG TAB PO SCH (08:03)
[2019-09-21] MEDS: ATORVASTATIN 10 MG TAB PO SCH (08:03)
[2019-09-21] MEDS: OXYCODONE HCL IR 5 MG TAB (IMMEDIATE RELEASE) PO PRN ×2 (08:05→15:07)
--- NOTE | 2019-09-21 08:47 | Orthopedic Progress Note ---
Date of Service September 21, 2019 Assessment & Plan (1) Spinal stenosis of lumbar region with radiculopathy: Patient is going to continue physical therapy monitor SHAVONNE output anticipate discharge home tomorrow. Present on Admission?: Yes Subjective Back pain controlled leg symptoms markedly improved. Physical Exam Physical Exam: Patient is ambulating halls is good strength testing. Results & Data ([facility]) Vital Signs (Past 12 Hours) Vital Signs Temp Pulse Resp BP BP Pulse Ox 09/21/19 06:47 36.5 C 75 15 121/70 96 09/20/19 23:33 36.5 C 78 15 128/74 94
--- NOTE | 2019-09-21 13:02 | Hospitalist Progress Note ---
Date of Service September 21, 2019 Assessment & Plan (1) Spinal stenosis of lumbar region with radiculopathy: PT/OT eval and treat. Otherwise per orthopedics. (2) Asthma: no dyspnea, appears to be a quiet issue (3) Hypothyroidism: Continue home medications (4) Hypertension: see yesterday's discussions - for now indefinitely holding BP meds and follow - even at discharge would hold meds and have her check BP 2-3x/day and follow closely w PCP. (updated discharge med rec and instructions to reflect this) (5) DVT prophylaxis: Per orthopedics (mechanical at this time) (6) LATIA (acute kidney injury): improved. can stop fluids. (7) Anemia: acute blood loss related to surgery, in expected range. no indications for transfusion at this time. follow periodically. (8) Headache: no complaints of this today (9) Somatic dysfunction of cervical region: OMT done yesterday, no complaints of headache today (10) Stress: see yesterday's notes and discussion (11) Constipation: on miralax already - since more uncomfortable but not appearing concerning on abdominal exam - enema. (12) Discharge planning issues: PT/OT eval and treat medically overall appearing stable (constipation causing discomfort but does not appear unstable) -- will formally sign off for now, but certainly if new issues arise or i can be of further assistance please do not hesitate to call. Subjective feeling very constipated. hasn't had BM in about 4 days. lots of crampy lower abdominal pain and can't tolerate drinking more miralax. no other new complaints/problems noted. updated on current dxs and results. Review of Systems Review of Systems: All systems reviewed & are unremarkable except as noted in HPI & below Physical Exam Physical Exam: aaox3 pleasant but leaning forward appearing uncomfortable from stomach. heent nc at mmm. breathing unlabored no accessory muscles good effort. abd soft moderately distended and diffusely tender but no guarding/rebound/rigidity Results & Data ([facility]) Vital Signs (Past 12 Hours) Vital Signs Temp Pulse Resp BP Pulse Ox 09/21/19 06:47 97.7 F 75 15 121/70 96 PG Care Time/CCT Total # of Minutes Spent Total Time Spent with Patient: Total time spent is greater than 50% in coordi nation of care (as documented) at patient's floor/unit and/or counseling patient: Coding Level of Care Code 18539 Subseq Hosp Care Lvl 3 Diagnoses Spinal stenosis of lumbar region with radiculopathy M48.061; M54.16 Asthma J45.909 Hypothyroidism E03.9 Hypertension I10 DVT prophylaxis Z29.9 LATIA (acute kidney injury) N17.9 Anemia D64.9 Headache R51 Somatic dysfunction of cervical region M99.01 Stress F43.9 Constipation K59.00 Discharge planning issues Z02.9
[2019-09-21] MEDS: PSYLLIUM 58.6% POWDER PACKET PO SCH (20:55)
[2019-09-21] MEDS: DOCUSATE SODIUM/SENNA 50/8.6MG TAB PO SCH (20:55)
[2019-09-22] MEDS: OXYCODONE HCL IR 5 MG TAB (IMMEDIATE RELEASE) PO PRN ×2 (00:08→11:19)
[2019-09-22] MEDS: LEVOTHYROXINE SODIUM 75 MCG TABLET PO SCH (05:22)
[2019-09-22] MEDS: ATORVASTATIN 10 MG TAB PO SCH (08:38)
[2019-09-22] MEDS: ESCITALOPRAM OXALATE 20 MG TAB PO SCH (08:38)
[2019-09-22] MEDS: PANTOprazole 40 MG TAB PO SCH (08:38)
--- NOTE | 2019-09-22 13:44 | Discharge Summary ---
Date of Service September 22, 2019 Admission HPI Per Admitting Provider This is a 69-year-old female known to me that presents with worsening back and leg pain. Failing extensive course of nonoperative care she is here for surgical intervention. Principal Diagnosis Lumbar spinal stenosis with neurogenic claudication Discharge Data Allergies Allergy/AdvReac Type Severity Reaction Status Date / Time dicloxacillin Allergy Mild hives, gi Verified 09/19/19 11:12 upset adhesive Allergy Unknown SKIN Verified 09/19/19 10:42 REDDNESS IRRITATION meperidine Allergy Unknown RASH Verified 09/19/19 10:42 phenytoin Allergy Unknown RASH Verified 09/19/19 10:42 propoxyphene Allergy Unknown RASH Verified 09/19/19 10:42 tetanus toxoid, adsorbed Allergy Unknown RASH Verified 09/19/19 10:42 aspirin AdvReac Unknown GI UPSET Verified 09/19/19 10:42 Consultations 09/19/19 15:48 Consult Case Management - Discharge Planning Routine Consult Hospitalist Routine Procedures Performed Operation Date: 09/19/19 12:35 Actual Procedures p L3-L5 Decompression And Fusion, With Spinal Cord Monitoring(Not Applicable) - Klever Castillo DO s L5-S1 Hardware Removal(Not Applicable) - Klever Castillo DO Ordered Studies 09/19/19 12:35 FL fluoroscopy <1hr Routine FL lumbar spine 2-3V Routine Hospital Course (1) Spinal stenosis of lumbar region with radiculopathy: Patient underwent lumbar decompression fusion tolerated as well as taken to orthopedic for postoperative. Postop day 1 she was up and ambulating progressed to postop day 2 on postop day 3 SHAVONNE drain decreased probably. Excellent strength testing. Pain well controlled. Subsequently discharged home. Discharge orders and instructions from the chart for further review. Total Time Total Time Spent Total Time Spent (In Minutes): 20 minutes Discharge Plan Discharge Items Patient Disposition: Home - Self-Care Reason For Visit: LUMBAR SPINAL STENOSIS WO NEUROGENIC CLAUDICATION Discharge Diagnosis: Lumbar spinal stenosis with neurogenic claudication Activity: As commented below Non-emergency contact: Primary Care Provider Call non-emergency contact if: you have any medication questions Follow-up/Referrals: Feroz Lance MD [Primary Care Provider] - Diet: Regular Addtl Attending Provider Instructions: ACTIVITY RECOMMENDATIONS: SELF CARE INSTRUCTIONS AFTER THORACIC/LUMBAR FUSIONS 1. You may walk to your tolerance. It is good exercise for your legs and back. Expect some back and intermittent leg aches and pains. 2. You may perform "counter-top" level activities (make a sandwich, abigail with a project, etc.). 3. No bending or lifting of more than 10 pounds or back twisting of any nature (roll like a log when turning in bed). 4. You may ride in a car for 20-30 minutes at a time. No driving until after your first visit with your doctor. 5. Frequent changes of position and restricting sitting to 30 minutes at a time will help limit the amount of back spasms and stiffness you may experience. 6. You may discontinue the use of ambulatory aids (cane, crutches, etc.) once your strength and confidence allow. 7. You may wet finisher wool the shower and let water strike your incision when you arrive home at least once daily. Do not take a tub bath, sit in a hot tub or go into a swimming pool until after your first recheck in the office. SPECIAL CARE INSTRUCTIONS: VERY IMPORTANT TO READ AND REVIEW A. Your surgical incision has been closed with a cosmetic suture under the skin that will dissolve in about 6 weeks. In 14 days, you can use a pair of clean scissors and cut the suture that is left outside of the skin at the ends of your incision. 1. The small skin tapes can be removed 7 days after surgery if they have not fallen off by that point. 2. You may keep the wound open to air as much as possible to promote healing after post-op day number 5 unless told otherwise by your doctor. 3. If you think the wound looks like it is becoming infected (redness or worsening drainage) and/or you are experiencing fever, chill or worsening back pain and muscle spasms, contact the office so that we may evaluate you as soon as possible. B. Complications are uncommon, but please contact us if you have any signs or symptoms of: 1. wound infection (fever higher than 102.5 degrees F, redness, separation of wound, drainage, or increasing pain from the incision) 2. blood clots in legs (pain, swelling, redness and warmth in legs) 3. urinary tract infection (fever higher than 102.5 degrees F, burning upon urination or increased frequency of urination) 4. nerve problems (inability to walk on your toes or heels, numbness, loss of bowel or bladder control) 5. any other symptoms that concern you C. Please call the office at if you have any concerns or questions about your operation or recovery. D. No smoking! Smoking drastically decreases the chance of a solid fusion. E. Do not take any anti-inflammatory medications (Indocin, Advil, Motrin, Aspirin, Naprosyn, etc.) as these may inhibit the chance of a solid fusion. Tylenol is okay to take for pain. MANAGING PAIN AFTER SPINAL SURGERY 1. Narcotic medication is intended for short-term use and will be provided for surgical pain. Surgical pain usually lasts for a period of 4-6 weeks. Narcotic medication includes Percocet, Vicodin, Darvocet, Tylenol #3 or Lortab. 2. Longer-term pain is more appropriately treated with non-narcotic medication such as Tylenol ES. 3. Muscle spasm is not appropriately treated with narcotics. Muscle relaxers such as Soma, Flexeril or Skelaxin can be used along with Tylenol ES. 4. Remember that we all live with some "aches and pains". This is not unusual or uncommon after an injury or as we get older. a. Back pain is expected and may include muscle spasms for 4 to 6 weeks after surgery. The pain should gradually improve. If the pain worsens for no apparent reason, please contact the office. b. Intermittent leg pain may also be experienced and should not be concerned about unless it worsens for no apparent reason. If so, please contact the office. 5. We will provide appropriate medication within the normal guidelines of their prescribed use. We will also be very cautious and aware of potential abuse and extended duration of patients' medication needs. a. Pain medications are for your comfort and to assist with sleep and rest so that the tissue can heal. They are not provided in order to return to normal activity and should not be used through the day. To do so or worsening pain at night can result from ongoing tissue damage and development of tolerance to the prescribed medicine. 6. Please allow 2-3 days to process refills. Prescriptions will not be mailed but must be picked up at the office. FOLLOW UP VISIT: Keep your scheduled follow-up appointment. Any questions, please call the office at . Hospitalist discharge instructions: Hypertension -as we discussed, your blood pressures have been running quite reasonable here, even without your regular medication. Since you had lost a lot of weight (unfortunately due to the pain) it is quite plausible that you no longer need your blood pressure medicine (or at last that you need less of it) -- and since you've been running "low normal" at home and feeling dizzy/lightheaded at times, we'll have you cautiously hold off on taking it for the time being. continue to check your blood pressures a few times a day and write down the numbers to discuss with Dr Lance. If you see a rise in numbers, don't stress about it - a hypertensive crisis is a rarity, and generally doesn't even occur unless people are in the range of 200/100 pressures -- the lower but [id number] readings are more of a risk of hardening/clogging arteries over several years, so if you see things like 150/90 that is more of an indication that you'll still need medications, but not an emergency. Continue to follow closely with Dr Lance in this regard. Health System "Cheat Codes" -as we had discussed, the modern [facility] health system is too short-staffed (we're now in the front end of a physician shortage) and far too bure aucratically dense to move as quickly as patients sometimes need. As docs, we hate this, but often don't even know what is happening when we have a patient in need. To avoid getting lost in the system if this or a similar situation happens again, below is a stepwise solution of how to "work the system" to make sure you don't languish. 1. use conventional methods -- call for an appointment, explain your needs, and take the first available slot (even if it's months away - it at least gets you "on the books") 2. call for cancellations -- even if the office doesn't have a formal cancellation list, if step 1 has left you with an appointment in months and you need help way sooner, call 2-3 times a week and politely ask if there have been any cancellations -- you'd be surprised how often that moves up your visit by huge amounts. 3. have Dr Lance reach out directly -- if steps 1,2 are failing you, then call Dr Lance / his nurse and explain what's going on (even if you don't think it's in their scope - you'd be surprised what a good family doc can handle sometimes, and if they can't, they'll still help "quarterback" your care) -- they can then reach out directly to whatever specialist is needed, and often can help move things up that way. 4. last resort - direct admission to the hospital -- if none of the above have gotten you the care you need (and if you're really in bad shape - because of the risks associated with being in the hospital this is not a step to be taken lightly) Dr Lance can call us as his hospitalist team, explain what's going on with you, and we can get you a bed directly in the hospital to move things along more quickly. While this doesn't immediately solve all problems, it usually can at least speed up evaluation and treatment dramatically (get things done in a day or two that might have taken weeks or months as an outpatient). It's a shame we sometimes have to "abuse the system" this way, but if the system is failing you, it's a final fail-safe/workaround. One thing to be aware of is that frequently using the hospital in this regard we are only able to have you in under "observation" status, which can be a little hard to predict financial implications of. (some people are on the hook for larger out of pocket for observation, others are not - depending on insurance coverage etc) but if you're really suffering/struggling and the system is moving at a snail's pace, it can be a way to move your care forward way faster. Note that this is totally different from going to the ER, where really the ER doc will be looking at what they need to do in order to stabilize your situation but may not always be able to move things forward more definitively (ie if it was something like what you're dealing with now, they might only be able to give pain medicine and get you home with outpatient referrals, not necessarily get all the imaging and consult specialists to see you during that stay like we can usually pull off when someone is upstairs). Pending Studies at Discharge: No Stand-Alone Forms: [facility], Opioid Pain Management, Smoking Cessation Medications and DC Order Prescriptions: New tramadol 50 mg tablet 50 mg PO Q6H PRN (Reason: pain, moderate) Qty: 30 RF: 0 oxycodone 5 mg tablet 5 mg PO Q6H PRN (Reason: pain, severe) Qty: 30 RF: 0 Continued atorvastatin 10 mg tablet 10 mg PO DAILY Qty: 90 RF: 3 psyllium husk (with sugar) 3.4 gram powder in packet 1 tsp PO QPM RF: 0 albuterol sulfate 90 mcg/actuation HFA aerosol inhaler 2 puffs INH Q4H PRN (Reason: shortness of breath or wheezing) Qty: 8.5 RF: 5 oxybutynin chloride [Ditropan XL] 10 mg tablet extended release 24hr 10 mg PO DAILY PRN (Reason: Sweating) RF: 0 omeprazole 40 mg capsule,delayed release(DR/EC) 40 mg PO QAM Qty: 90 RF: 2 levothyroxine 75 mcg tablet 75 mcg PO QAM RF: 0 escitalopram oxalate [Lexapro] 20 mg tablet 20 mg PO QAM RF: 0 tramadol 50 mg Tablet 50 mg PO Q6H PRN (Reason: Pain) RF: 0 acetaminophen [Tylenol Extra Strength] 500 mg Tablet 1,500 mg PO UD PRN (Reason: Pain) RF: 0 Discontinued celecoxib 200 mg capsule 200 mg PO UD PRN (Reason: pain) RF: 0 lisinopril-hydrochlorothiazide 20-25 mg tablet 1 tab PO HS RF: 0 Discharge Orders: Discharge Order (Routine); Ordered 09/22/19 Ordered By: Klever Us/Other Patient Handouts: Surgery Prevent DVT After Admission Data Admit Date/Time: 09/19/19 14:37 Attending Provider: Klever Castillo Admit Provider: Klever Castillo Primary Care Provider: Feroz Lance Other Providers: Aldo Vasquez Other Interventions: Discharge Summary Assessment (RN) Last Done: 09/22/19 10:12 DC Date/Time DO NOT enter until pt leaves facility: 09/22/19 13:09
== END 2019-09-22 13:09 | disposition home or self-care (01) | DRG 454 ==
LOC: ASU 10:13 → 3E 14:37

== ENCOUNTER 2022-02-25 10:38 | Inpatient (IN) ==
--- NOTE | 2022-01-28 15:21 | PAT Medication Instructions ---
Medication Instructions Date of Service January 28, 2022 Home Medications Medication Instructions Recorded albuterol sulfate 90 mcg/actuation 2 puffs INH Q4H PRN #8.5 gm 07/19/19 aerosol inhaler gabapentin 300 mg capsule 300 mg PO BID #180 cap 05/19/21 levothyroxine 75 mcg tablet 75 mcg PO QAM #90 tab 05/19/21 escitalopram oxalate 10 mg tablet 10 mg PO QAM #90 tab 09/01/21 oxybutynin chloride 10 mg 10 mg PO DAILY PRN #90 tab 09/29/21 tablet,extended release 24 hr (Ditropan XL) omeprazole 40 mg capsule,delayed 40 mg PO QAM #90 cap 10/20/21 release psyllium husk (with sugar) 3.4 gram oral powder packet (Metamucil (with sugar)) 1 tsp PO QPM albuterol sulfate 90 mcg/actuation aerosol inhaler 2 puffs INH Q4H PRN acetaminophen 500 mg tablet (Tylenol Extra Strength) 1,500 mg PO UD PRN gabapentin 300 mg capsule 300 mg PO BID levothyroxine 75 mcg tablet 75 mcg PO QAM escitalopram oxalate 10 mg tablet 10 mg PO QAM oxybutynin chloride 10 mg tablet,extended release 24 hr (Ditropan XL) 10 mg PO DAILY PRN omeprazole 40 mg capsule,delayed release 40 mg PO QAM atorvastatin 10 mg tablet 10 mg PO QPM celecoxib 200 mg capsule 200 mg PO QAM PRN hydroxyzine HCl 10 mg tablet 10 mg PO QPM PRN ASK your surgeon for instructions celecoxib 200 mg capsule 200 mg PO QAM PRN DO NOT take the morning of surgery oxybutynin chloride 10 mg tablet,extended release 24 hr (Ditropan XL) 10 mg PO DAILY PRN Take morning of surgery With a small sip of water, OTHERWISE NOTHING TO EAT OR DRINK AFTER MIDNIGHT: albuterol sulfate 90 mcg/actuation aerosol inhaler 2 puffs INH Q4H PRN (use if needed; please bring rescue inhaler with you to hospital day of surgery if possible) acetaminophen 500 mg tablet (Tylenol Extra Strength) 1,500 mg PO UD PRN (if needed) gabapentin 300 mg capsule 300 mg PO BID levothyroxine 75 mcg tablet 75 mcg PO QAM escitalopram oxalate 10 mg tablet 10 mg PO QAM omeprazole 40 mg capsule,delayed release 40 mg PO QAM Take evening before surgery psyllium husk (with sugar) 3.4 gram oral powder packet (Metamucil (with sugar)) 1 tsp PO QPM albuterol sulfate 90 mcg/actuation aerosol inhaler 2 puffs INH Q4H PRN (if n eeded) acetaminophen 500 mg tablet (Tylenol Extra Strength) 1,500 mg PO UD PRN (if needed) gabapentin 300 mg capsule 300 mg PO BID oxybutynin chloride 10 mg tablet,extended release 24 hr (Ditropan XL) 10 mg PO DAILY PRN (if needed) atorvastatin 10 mg tablet 10 mg PO QPM hydroxyzine HCl 10 mg tablet 10 mg PO QPM PRN (if needed) Other Notes If you have any questions please call us at [phone] or [phone] or [phone] or [phone]
--- NOTE | 2022-01-30 11:34 | Anesthesiology Consultation ---
Date of Service January 30, 2022 Assessment & Plan (1) Encounter for pre-operative examination: - Patient acceptable risk for surgery pending surgeon-ordered PCP preop evaluation (02/09; [facility]). - COVID screening: Per assessment on 01/30: No known COVID-19 positive contacts or current COVID-19 related symptoms. Travel screen negative. Surgeon arranging preop COVID testing. Awaiting results. - S/P L3-5 decompression, L3-S1 fusion (09/19/19): Grade view 3, MAC 3.0, ETT 7.0 at [facility]. No issues noted per post-op anesthesia progress note. Chart Review Chart Review: Patient seen in Pre Admission Testing Teaching & Discussion Pre-Anesthesia Teaching/Discussion Notes: Instructed NPO after midnight before surgery,except medications with 15 cc of water. Medication instructions provided according to the PAT guidelines. History Surgery Operation Date: 02/25/22 07:15 Proposed Procedures p Right Total Shoulder Arthroplasty Reverse - Kenji Edwards MD Height/Weight Height: 5 ft 2 in Weight: 83.6 kg Allergies Allergy/AdvReac Type Severity Reaction Status Date / Time dicloxacillin Allergy Mild Hives, GI Verified 01/28/22 16:22 upset adhesive Allergy Unknown Skin Verified 01/28/22 16:22 redness, irritation meperidine Allergy Unknown Rash Verified 01/28/22 16:22 phenytoin Allergy Unknown Rash Verified 01/28/22 16:22 propoxyphene Allergy Unknown Rash Verified 01/28/22 16:22 tetanus toxoid, adsorbed Allergy Unknown Rash Verified 01/28/22 16:22 aspirin AdvReac Unknown GI upset Verified 01/28/22 16:22 Medications Home Medications Medication Instructions Recorded Confirmed Last Taken psyllium husk (with sugar) 3.4 1 tsp PO QPM ea 01/12/19 01/28/22 02/06/21 gram oral powder packet (Metamucil (with sugar)) albuterol sulfate 90 mcg/actuation 2 puffs INH Q4H PRN #8.5 gm 07/19/19 01/28/22 Unknown aerosol inhaler acetaminophen 500 mg tablet 1,500 mg PO UD PRN 09/05/19 01/28/22 02/06/21 (Tylenol Extra Strength) 1000 mg gabapentin 300 mg capsule 300 mg PO BID #180 cap 05/19/21 01/28/22 Unknown levothyroxine 75 mcg tablet 75 mcg PO QAM #90 tab 05/19/21 01/28/22 Unknown escitalopram oxalate 10 mg tablet 10 mg PO QAM #90 tab 09/01/21 01/28/22 Unknown oxybutynin chloride 10 mg 10 mg PO DAILY PRN #90 tab 09/29/21 01/28/22 Unknown tablet,extended release 24 hr (Ditropan XL) omeprazole 40 mg capsule,delayed 40 mg PO QAM #90 cap 10/20/21 01/28/22 Unknown release atorvastatin 10 mg tablet 10 mg PO QPM 01/28/22 01/28/22 Unknown celecoxib 200 mg capsule 200 mg PO QAM PRN 01/28/22 01/28/22 Unknown hydroxyzine HCl 10 mg tablet 10 mg PO QPM PRN 01/28/22 01/28/22 Unknown Past Medical History Medical History Anxiety Asthma Stable Chronic left-sided low back pain Cochlear implant in place Right DDD (degenerative disc disease) Dyslipidemia GERD (gastroesophageal reflux disease) controlled History of high cholesterol History of vertigo Hypertension Hypothyroid Sensorineural hearing loss (SNHL) of both ears Exercise / Class Metabolic Activity II 4-5 Yardwork/Stairs/Walk up hill Past Family History Family History Mother Diabetes Hearing loss Heart disease Hypertension Mother Family history of diabetes mellitus (DM) Sister Diabetes Family history of diabetes mellitus (DM) Colon cancer Other No family history of allergies No family history of bleeding disorder Denies family history of Cancer Stroke Asthma Past Surgical History Surgical History H/O hysterectomy for benign disease H/O mastoidectomy History of cholecystectomy History of cochlear implant History of colonoscopy History of esophagogastroduodenoscopy (EGD) History of lumbar fusion L3-5 decompression, L3-S1 fusion (09/19/19): Grade view 3, MAC 3.0, ETT 7.0 at [facility]. No issues noted per post-op anesthesia progress note. History of neck surgery Fusion History of repair of left rotator cuff History of repair of right rotator cuff History of total right knee replacement Hx of bilateral cataract extraction S/P anal fissurectomy Past Anesthesia History No Hx of Anesthesia Complications and No Family Hx of Anesthesia Complications History of PONV No Hx of PONV and Hx of Motion Sickness (+ vertigo) Social History Smoking Status: Never smoker Do You Dip or Chew Tobacco: No Hx Alcohol Use: No Hx Substance Use: No substance use type: does not use Review of Systems Patient denies chest pain, shortness of breath, dyspnea on exertion, fever, chills, cough, wheezing, palpitations. Physical Exam Vital Signs VITALS BP 166/72 P 78 TEMP 98.5 SP02 94%RA RESP 16 PHYSICAL Significantly decreased cervical extension range of motion s/p cervical fusion. Full TMJ range of motion. TMD 3 finger breaths Mallampati Score 3 Dentition: partials upper/lower Lungs: clear throughout to auscultation Cardiac: regular rate and rhythm, no murmurs noted Spine: normal Carotid arteries: negative bruit Extremities: no edema Lab Results Anesthesia Preop Results Results Anesthesia Widget: WBC 6.47 K/uL (4.8-10.8) 01/30/22 Hgb 13.0 g/dL (12.0-16.0) 01/30/22 Hct 39.5 % (37-47) 01/30/22 Plt 397 K/uL (130-400) 01/30/22 PT 10.5 Seconds (9.0-12.0) 01/30/22 PTT 24.3 Seconds (21.0-31.0) 01/30/22 INR 1.0 (0.9-1.1) 01/30/22 HA1c 5.7 % (4.5-5.6) H 01/30/22 Urine Color Dark Yellow 01/30/22 Urine Appearance Clear (Clear) 01/30/22 Urine pH 5.5 (4.5-7.5) 01/30/22 Urine Specific [place] 1.023 (1.000-1.030) 01/30/22 Urine Protein Negative (Negative) 01/30/22 Urine Glucose (UA) Negative (Negative) 01/30/22 Urine Ketones Negative (Negative) 01/30/22 Urine Blood Negative (Negative) 01/30/22 Urine Nitrite Negative (Negative) 01/30/22 Urine Bilirubin Negative (Negative) 01/30/22 Urine Urobilinogen Negative (Negative) 01/30/22 Urine Leukocyte Esterase 1+ (Negative) H 01/30/22 Urine WBC (Auto) 5-10 /hpf (0-5) H 01/30/22 Urine RBC (Auto) 0-4 /hpf (0-4) 01/30/22 Urine Hyaline Casts (Auto) 0 /lpf (0-5) 01/30/22 Urine Epithelial Cells (Auto) >30 /lpf (0-5) H 01/30/22 Urine Bacteria (Auto) Negative (Negative) 01/30/22 Blood Type A Negative 01/30/22 Antibody Screen NEGATIVE 01/30/22 Testing Electrocardiogram Date: 01/30/22 NSR at 75bpm. NS STA. Chest X-Ray Date: 01/30/22 Findings: + NAD
--- NOTE | 2022-02-24 12:24 | History & Physical Report ---
Date of Service February 24, 2022 Assessment & Plan (1) Primary osteoarthritis, right shoulder: Plan: Treatment options discussed with patient. She has failed conservative measures. She would like to proceed with surgical intervention. Risks, benefits and alternatives to surgery including but not limited to infection, DVT, pain, stiffness, need for revision surgery, damage to blood vessels, damage to nerves, PE, , were discussed with the patient and they wish to proceed. Plan on right reverse total shoulder arthroplasty scheduled for February [address] Edwards at [facility]. All questions answered. Patient will follow-up postop. History of Present Illness Chief Complaint: Right shoulder pain Primary Care Provider: Feroz Lance MD 71-year-old female with past medical history significant for hypothyroidism, HTN who presents with ongoing right shoulder pain. Pain is interfering with her daily activities. She has failed conservative measures including therapy as well as injections. She would like to proceed with surgical invention. Patient denies headaches, sweats, fevers, chills, double vision, blurred vision, cough, sore throat, dysphagia, chest pain, sob, wheezing, n/v/d/c, numbness, tingling, fatigue, urinary symptoms, mood disorders. ROS positive for right shoulder pain and stiffness. Allergies Allergy/AdvReac Type Severity Reaction Status Date / Time dicloxacillin Allergy Mild Hives, GI Verified 02/18/22 11:01 upset adhesive Allergy Unknown Skin Verified 02/18/22 11:01 redness, irritation meperidine Allergy Unknown Rash Verified 02/18/22 11:01 phenytoin Allergy Unknown Rash Verified 02/18/22 11:01 propoxyphene Allergy Unknown Rash Verified 02/18/22 11:01 tetanus toxoid, adsorbed Allergy Unknown Rash Verified 02/18/22 11:01 aspirin AdvReac Unknown GI upset Verified 02/18/22 11:01 Home Medications Medication Instructions Recorded Confirmed Type psyllium husk (with sugar) 3.4 1 tsp PO QPM ea 01/12/19 02/18/22 History gram oral powder packet (Metamucil (with sugar)) albuterol sulfate 90 mcg/actuation 2 puffs INH Q4H PRN #8.5 gm 07/19/19 02/18/22 Rx aerosol inhaler acetaminophen 500 mg tablet 1,500 mg PO UD PRN 09/05/19 02/18/22 History (Tylenol Extra Strength) gabapentin 300 mg capsule 300 mg PO BID #180 cap 05/19/21 02/18/22 Rx levothyroxine 75 mcg tablet 75 mcg PO QAM #90 tab 05/19/21 02/18/22 Rx escitalopram oxalate 10 mg tablet 10 mg PO QAM #90 tab 09/01/21 02/18/22 Rx oxybutynin chloride 10 mg 10 mg PO DAILY PRN #90 tab 09/29/21 02/18/22 Rx tablet,extended release 24 hr (Ditropan XL) omeprazole 40 mg capsule,delayed 40 mg PO QAM #90 cap 10/20/21 02/18/22 Rx release atorvastatin 10 mg tablet 10 mg PO QPM 01/28/22 02/18/22 History celecoxib 200 mg capsule 200 mg PO QAM PRN 01/28/22 02/18/22 History hydroxyzine HCl 10 mg tablet 10 mg PO QPM PRN 01/28/22 02/18/22 History ciprofloxacin 0.3 %-dexamethasone 4 drp OTIC (EAR) BID #15 ml 02/18/22 02/18/22 Rx 0.1 % ear drops,suspension (Ciprodex) Past Med/Surg History Medical History Anxiety Asthma Chronic left-sided low back pain Cochlear implant in place DDD (degenerative disc disease) Dyslipidemia GERD (gastroesophageal reflux disease) History of high cholesterol History of vertigo Hypertension Hypothyroid Primary osteoarthritis, right shoulder Sensorineural hearing loss (SNHL) of both ears Surgical History H/O hysterectomy for benign disease H/O mastoidectomy History of cholecystectomy History of cochlear implant History of colonoscopy History of esophagogastroduodenoscopy (EGD) History of lumbar fusion History of neck surgery History of repair of left rotator cuff History of repair of right rotator cuff History of total right knee replacement Hx of bilateral cataract extraction S/P anal fissurectomy Family History Mother Diabetes Hearing loss Heart disease Hypertension Mother Family history of diabetes mellitus (DM) Sister Diabetes Family history of diabetes mellitus (DM) Colon cancer Other No family history of allergies No family history of bleeding disorder Denies family history of Cancer Stroke Asthma Social History Smoking Status: Never smoker Second Hand Exposure: No; Hx Alcohol Use: No Hx Substance Use: No Preferred Language: Bengali Communication Ability: Effective School Psychologist Assistant Required: No Beliefs That Will Affect Care: None marital status: Current Living Situation: Spouse current occupational status: retired How many Children do You have: 3 Feels Safe at Home: Yes caffeine: Yes Seatbelt Use: always Assistive Devices: Denture - Upper, Denture - Lower, Glasses and Hearing Aid - Left Review of Systems All systems reviewed & are unremarkable except as noted in HPI & below Physical Exam Constitutional: well developed and well nourished; no acute distress Eyes: PERRL, conjunctivae normal, anicteric sclerae ENMT: external ear and nose normal, oropharynx normal Neck: trachea midline, no thyromegaly Respiratory: normal respiratory effort, lungs clear to auscultation Cardiovascular: RRR, no murmur, no edema Musculoskeletal: Right shoulder: Surgical scars are well-healed. She has crepitation with range of motion. There is tenderness diffusely about the shoulder. Positive impingement signs. She has pain at end range of motion pain with resisted strength testing. Range of motion is 80 degrees of abduction, 90 degrees of forward flexion actively. She has weakness in external rotation with 3+/5, 4+/5 internal rotation, 3/5 abduction. Skin: no rashes, warm and dry Neurologic: patellar DTR's 2+ bilat, sensation intact Psychiatric: A+Ox3, euthymic affect Results & Data ([place]) Diagnostic Findings Right shoulder radiographs demonstrate end-stage osteoarthritis right shoulder, [id number] glenohumeral joint. There is large inferior humeral head spur.
[~2022-02-25 10:38] MED LIST changes: +ALLERGY Noted to ORDERED Medication SCH; +BUPIVACAINE 0.5 % 5 MG/1 ML PF 10ML VIAL ONE; -CEFAZOLIN 2000MG 2,000 MG/15 ML SYR IV SCH; +FAMOTIDINE 20 MG TAB PO SCH; +METOCLOPRAMIDE HCL 10 MG TABLET PO SCH; -MIDAZOLAM HCL 1 MG/ML 2ML VIAL ONE; +TRANEXAMIC ACID 1,000 MG **IV Intra-op IV SCH; +TRANEXAMIC ACID 1,000 MG **IV Pre-op IV SCH; +VANCOMYCIN HCL 1,250 MG in SODIUM CHLORIDE 0.9% 250 ML IV SCH; +dexAMETHasone 4 MG TAB PO SCH; -fentaNYL citrate 100 MCG/2 ML VIAL ONE
[2022-02-25] MEDS ORDERED: Nursing to Pharmacy Communication SCH (10:45)
[2022-02-25] MEDS ORDERED: CLINDAMYCIN 600 MG/D5W 50 ML BAG IV ONE (11:28)
[2022-02-25] MEDS ORDERED: ONDANSETRON INJ 2 MG/ML 2 ML VIAL IV PRN ×2 (12:04→17:28)
[2022-02-25] MEDS ORDERED: ATROPINE SULFATE 0.1 MG/ML 10ML SYR IV PRN (12:04)
[2022-02-25] MEDS ORDERED: LABETALOL HCL IV 5 MG/ML 20ML IV PRN (12:04)
[2022-02-25] MEDS ORDERED: HYDROmorphone INJ 1 MG/ML SYRINGE IV PRN (12:04)
[2022-02-25] MEDS ORDERED: ePHEDrine sulfate 50 MG/ML AMP IV PRN (12:04)
[2022-02-25] MEDS ORDERED: PHENYLEPHRINE 100MCG/ML 5ML SYR IV PRN (12:04)
[2022-02-25] MEDS ORDERED: fentaNYL citrate 100 MCG/2 ML VIAL IV PRN (12:04)
[2022-02-25] MEDS ORDERED: fentaNYL citrate 100 MCG/2 ML VIAL ONE ×2 (13:17→15:48)
[2022-02-25] MEDS ORDERED: MIDAZOLAM HCL 1 MG/ML 2ML VIAL ONE (13:17)
[2022-02-25] MEDS ORDERED: DEXAMETHASONE SOD INJ 4 MG/ML VIAL ONE (13:20)
[2022-02-25] MEDS ORDERED: GLYCOPYRROLATE 0.2 MG/ML VIAL ONE (13:20)
[2022-02-25] MEDS ORDERED: ROCURONIUM BROMIDE 10 MG/ML 5 ML VIAL IV ONE ×3 (13:20→14:58)
[2022-02-25] MEDS ORDERED: LIDOCAINE 2% MPF LOCAL 5 ML VIAL INFIL ONE (13:20)
[2022-02-25] MEDS ORDERED: PROPOFOL IV EMULSION 10 MG/ML 20 ML VIAL IV ONE (13:20)
[2022-02-25] MEDS ORDERED: ONDANSETRON INJ 2 MG/ML 2 ML VIAL ONE (13:20)
[2022-02-25] MEDS ORDERED: NEOSTIGMINE METHYLSULFATE 1 MG/ML 10ML VIAL ONE (13:20)
--- NOTE | 2022-02-25 13:33 | History & Physical Bridge Note ---
Date of Service February 25, 2022 History & Physical Bridge Note I have examined the patient, reviewed the History & Physical and in the interval since the performance of the History & Physical I have noted the following changes of clinical significance: no changes noted
--- NOTE | 2022-02-25 16:15 | Operative Report ---
Post Operative Report Pre & Post Diagnosis Operation Date: 02/25/22 12:45 Pre-Op Diagnosis: Right Shoulder Osteoarthritis glenohumeral joint, rotator cuff tendinopathy Post-Op Diagnosis: Right Shoulder Osteoarthritis, rotator cuff tendinopathy, subacromial bursitis, biceps tenosynovitis I identified the patient and participated in the time-out.: Yes Procedure Operation Date: 02/25/22 12:45 Actual Procedures p Right Reverse Total Shoulder Arthroplasty(Right), biceps tenodesis.- Kenji Edwards MD Surgeon Kenji Edwards MD New Car Driver Bryant KENNEY Estimated Blood Loss 40 Findings Consistent with Post-Op Diagnosis Specimens Humeral head bone cut Drains 2 Hemovac Anesthesia Type General Regional Complications none Disposition Disposition: Recovery Room Indications 71-year-old female with chronic right shoulder pain failed conservative management. She has very limited function with about 40 degrees of abduction and flexion but her passive motion is better than her active motion. She is avan-mj-ygkh clearly with [id number] crepitation. Radiographs demonstrate bqww-[id number] on axillary view with some relative more posterior wear than anterior with early B2 glenoid. Description of Procedure The patient was taken to the operating room and anesthetized under regional block and general anesthetic. The patient was positioned on the operating table in a 30 beach chair position with a towel roll under the medial border of the right scapula. The arm was draped free to be able to manipulate the shoulder as needed. The right upper extremity was prepped and draped in usual sterile fashion. Exam demonstrated tuyd-[id number] crepitation forward flexion to 150 degrees abduction to 80 degrees external rotation 40 degrees. Prior transverse scar from old clavicle fracture surgical treatment. Moderate obesity. An anterior deltopectoral approach was performed. A longitudinal incision was made in the deltopectoral interval. The skin was incised sharply. Subcutaneous flaps were elevated off the fascia. The cephalic vein was dissected out and retracted lateral with the deltoid. The clavipectoral fascia was divided at the lateral margin of the conjoined tendon and extended up to the CA ligament. The following findings were noted: There was significant subacromial bursitis with large subacromial bursal fluid collection. There was tendinopathy and striations and fraying of the supraspinatus tendon infraspinatus teres minor intact subscapularis was intact and there was joint effusion with bulging synovium out of the rotator interval area. There was chronic biceps tenosynovitis with a thickened tendon sheath filled with fluid around the biceps tendon.. The upper centimeter of the pectoralis was released for inferior exposure. A thorough bursectomy was performed all subdeltoid adhesions were released.A self- retaining retractor was placed. the biceps tendon was tenodesed to the pectoralis tendon with #2 FiberWire. The proximal biceps was resected. The subscapularis muscle fibers were split longitudinally at the level of the circumflex vessels. The circumflex vessels were identified and tied off with silk ties and divided laterally. A Kitner elevator was used to free up the inferior fibers of the subscapularis off of the capsule. The axillary nerve was identified with a tug test and protected with a blunt Aaron retractor between the nerve and the capsule. The subscapularis tendon was then taken down off of the lesser tuberosity subperiosteally, a Vicryl traction suture was placed and a subperiosteal dissection was performed along the neck of the humerus as the arm was gradually externally rotated exposing the humeral head. The humeral head findings demonstrated eburnated bone and central and posterior region of the humeral head with anterior and inferior large bone spur.. retractors were readjusted and the inferior osteophytes were all resected using an artist ch nahum. Rongeur was used to resect a smaller anterior and posterior spurs. A Alonso elevator was used to assist in releasing the capsule of the neck of the humerus. The capsule was divided with Block scissors down to the glenoid released off the anterior glenoid and the rotator interval was released to meet the capsular release and a 360 release of the subscapularis was accomplished. A Fukuda retractor was placed into the joint retracting the humeral head posterior. Glenoid findings demonstrated posterior 80% of the glenoid was exposed bone eburnated no articular cartilage with still labrum intact. Labrum had degenerative changes. There was a crescent of intact 20% of the anterior superior articular surface.. The labrum and biceps tendon were resected. an anterior-inferior and posterior inferior capsular release were performed with electrocautery and a Alonso elevator on bone with the axillary nerve protected inferiorly by the retractor. Attention was then taken to the humeral prep aration. The anterior aspect of the supraspinatus was released leaving the infraspinatus intact. The neck cutting guide was positioned at 20 of retroversion. Oscillating saw was used to resect the humeral head giving the cut above the level of the posterior rotator cuff insertion site. The humerus was then prepared for the stem. I used the ascend flex stem from [employer]. The sizing broaches were used followed by trial broaches up to a size 2 which had the appropriate fit and fill. The appropriate sized cut protector was placed. The humerus was then retracted posterior to the glenoid. The glenoid was sized for a 25 baseplate. The guide for the baseplate was positioned in a 10 inferior tilt and the central drill hole was made. The reamer for the 25 baseplate was used. The central drill was widened for the peg. Bone was very sclerotic and hard so had to slightly toggle the central drill to allow placement of the post into the very hard sclerotic bone. The Tornier aequalis hydroxyapatite-coated 25 mm baseplate was impacted into position. The base plate was transfixed with superior and inferior locking screws and anterior and posterior compression screws with stable fixation. The fan reamer was used for the 36 millimeter glenoid sphere. After irrigation the 36 mm standard glenoid sphere was impacted onto the baseplate and the security screw was tightened. Attention was taken back to the humerus. The cut protector was removed and the +0 high offset humeral tray trial was assembled to the trial stem rotated appropriately to get bony coverage and then screwed in position. A trial reduction was performed. A +6, 36 reversed trial insert demonstrated good stability and no shuck. The trials were removed. 3 drill holes are made into the harder bone in the bicipital groove area and 3 #5 FiberWire sutures were placed transosseously. The canal was irrigated with pulse lavage saline solution.. The final component was assembled. The final component was ascend flex to be long stem assembled to plus or high offset tray with the +6, 36 reversed polyethylene insert. This was then impacted into the humerus with a tight press-fit. It was reduced to the glenoid sphere. Stability was verified. With traction at the side and 90 degrees abduction and traction there was no shuck at all. The subscapularis was repaired with the #5 FiberWire sutures using Beto-Jay suture technique. Lateral row soft tissue repair was performed with #2 FiberWire [id number] sutures. Lateral rotator interval and supraspinatus which was previously released was repaired with ihymsm-ak-svtjg #2 FiberWire sutures. The pectoralis was repaired with #2 FiberWire iwawjx-ol-yuiuy sutures reinforcing the biceps tendon tenodesis. The arm was taken through a range of motion which demonstrated 150 degrees forward flexion 90 degrees abduction 60 degrees external rotation without any tension on repair. The implant was stable through the range of motion tested. The wound was copiously irrigated. 2 Hemovac drains were placed. The deltopectoral interval was closed with lawnho-jw-aiqia #1 Vicryl sutures. The subcutaneous tissues were closed with 2-0 Vicryl sutures. The skin was closed with chandler. Sterile dressings were applied and a shoulder immobilizer. Bryant KENNEY my physician dental hygiene administrative assistant acted as industrial hire sales assistant throughout the procedure .He performed functions including patient positioning, arm positioning, prepping and draping, soft tissue retraction, instrument management, suture management and performed the subcutaneous and skin closure and will participate in the postoperative care of the patient. I attest to the content of the Intraoperative Record and any orders documented therein. Any exceptions are noted below.
[2022-02-25] MEDS ORDERED: METOPROLOL TARTRATE 1 MG/ML VIAL IV ONE (16:26)
[2022-02-25] MEDS: METOPROLOL TARTRATE 1 MG/ML VIAL IV STA ×2 (16:27→17:36)
--- NOTE | 2022-02-25 16:48 | XRay Report ---
XR shoulder RT min 2V routine CLINICAL HISTORY: Post shoulder surgery COMPARISON STUDY: FINDINGS: Status post reverse right total shoulder arthroplasty. The hardware appears intact. Skin st aples and surgical drains are in place. No acute fracture or dislocation. Old, healed distal right cl avicle fracture is noted. IMPRESSION: Status post reverse right total shoulder arthroplasty. No evidence for hardware complica tion. ACT 112: Negative or not required by law. Electronically signed by: Harry Jolly M.D. 02/25/2022 4:47 PM
--- NOTE | 2022-02-25 16:57 | Anesthesiology Progress Note ---
Date of Service February 25, 2022 Anesthesia Post Procedure Vital Signs Vital Signs: Temp Pulse Pulse Resp BP BP Pulse Ox 02/25/22 16:25 102 H 14 159/78 H 95 02/25/22 16:45 80 19 155/76 H 94 02/25/22 16:35 78 21 153/76 H 93 02/25/22 16:15 103 H 15 174/76 H 95 02/25/22 16:27 101 H 159/78 H 02/25/22 16:08 98.4 F 104 H 16 177/85 H 94 02/25/22 12:06 206/96 H 02/25/22 11:00 98.8 F 65 20 196/79 H 98 O2 Del Method O2 Flow Rate 02/25/22 16:25 Oxymask 5 02/25/22 16:45 Nasal Cannula 4 02/25/22 16:35 Nasal Cannula 4 02/25/22 16:15 Oxymask 5 02/25/22 16:27 02/25/22 16:08 Oxymask 5 02/25/22 12:06 02/25/22 11:00 Room Air Pain Intensity Right Shoulder: Pain Intensity: 6 Transfer of Care Handoff Completed per policy Notes Mental Status: alert / awake / arousable and participated in evaluation Patient Amnestic to Procedure: Yes Nausea / Vomiting: adequately controlled Pain: adequately controlled Airway Patency, RR, SpO2: stable & adequate BP & HR: stable & adequate Hydration State: stable & adequate Anesthetic Complications: no major complications apparent and Pt Satisfied with anesthetic care
[2022-02-25] MEDS ORDERED: HYDROmorphone INJ 0.5 MG/0.5 ML SYR IV PRN (17:28)
[2022-02-25] MEDS ORDERED: MAGNESIUM HYDROXIDE SUSP 30 ML UDC PO PRN (17:28)
[2022-02-25] MEDS ORDERED: SODIUM CHLORIDE 0.9% 1000ML 1,000 ML IV SCH (17:28)
[2022-02-25] MEDS ORDERED: NALOXONE HCL 0.4 MG/1 ML VIAL/CARP IV PRN (17:28)
[2022-02-25] MEDS ORDERED: VANCOMYCIN CONSULT ACTIVE PRN (17:28)
[2022-02-25] MEDS ORDERED: bisacodyL 10 MG SUPP PR PRN (17:28)
[2022-02-25] MEDS ORDERED: METOCLOPRAMIDE HCL INJ 5 MG/ML 2 ML VIAL IV PRN (17:28)
[2022-02-25] MEDS ORDERED: hydrOXYzine HCl 10 MG TAB PO PRN (17:28)
[2022-02-25] MEDS ORDERED: ALBUTEROL HFA 8 GM INHALER INH PRN (17:28)
[2022-02-25] MEDS ORDERED: oxyCODONE HCL IR 5 MG TAB (IMMEDIATE RELEASE) PO PRN (17:28)
[2022-02-25] MEDS ORDERED: OXYBUTYNIN CHLORIDE XL 5 MG TABCR PO PRN (17:28)
[2022-02-25] MEDS ORDERED: ATORVASTATIN 10 MG TAB PO SCH (21:00)
[2022-02-25] MEDS ORDERED: PSYLLIUM or GUAR GUM FIBER POWDER PACKET PO SCH (21:00)
[2022-02-25] MEDS ORDERED: SENNA 8.6 MG TAB PO SCH (21:00)
[2022-02-25] MEDS: CIPRO 0.3%/DEXAMETHASONE 0.1% OTIC SUSP 7.5ML OT SCH (21:12)
[2022-02-25] MEDS: DOCUSATE SODIUM 100 MG CAP PO SCH (21:12)
[2022-02-25] MEDS: ACETAMINOPHEN 500 MG TAB PO SCH (21:13)
[2022-02-26] MEDS ORDERED: VANCOMYCIN HCL 1,250 MG in SODIUM CHLORIDE 0.9% 250 ML IV SCH
[2022-02-26] MEDS: ACETAMINOPHEN 500 MG TAB PO SCH (05:36)
[2022-02-26] MEDS ORDERED: CLINDAMYCIN PHOS 300 MG/2 ML VIAL IV SCH (06:00)
[2022-02-26 06:24] LABS: Eosinophils # (auto) 0.01 K/uL (0-0.50); Eosinophils % (auto) 0.1 %; Hematocrit (blood only) 35.3 % (34.1-44.9); Hemoglobin 11.5 g/dl (12.0-16.0); Immature Granulocytes # (auto) 0.04 K/uL (0.00-0.02); Immature Granulocytes % (auto) 0.5 %; Lymphocytes # (auto) 1.13 K/uL (1.2-3.4); Lymphocytes % (auto) 14.1 %; Mean Corpuscular Hemoglobin 29.3 pg (25.0-34.0); Mean Corpuscular Hgb Conc 32.6 g/dL (32.0-36.0); Mean Corpuscular Volume 90.1 fL (80.0-100.0); Mean Platelet Volume 9.7 fL (9.4-12.3); Monocytes # (auto) 0.37 K/uL (0.24-0.82); Monocytes % (auto) 4.6 %; Neutrophils # (auto) 6.44 K/uL (1.4-6.5); Neutrophils % (auto) 80.7 %; Platelet Count 360 K/uL (130-400); RDW Coefficient of Variation 14.4 % (11.5-14.5); RDW Standard Deviation 47.1 fL (36.4-46.3); Red Blood Count 3.92 M/uL (3.93-5.22); White Blood Count 7.99 K/ul (4.8-10.8)
[2022-02-26] MEDS ORDERED: LEVOTHYROXINE SODIUM 75 MCG TABLET PO SCH (06:30)
[2022-02-26 06:55] LABS: Calcium 9.2 mg/dl (8.5-10.1); Creatinine Clr Calc Pharmacy 51.6 ml/min; Est GFR (African American) 65.2 ml/min; Est GFR (Non-African American) 56.2 ml/min; Potassium 4.3 mmol/L (3.5-5.1)
--- NOTE | 2022-02-26 07:57 | Hospitalist Consultation ---
Date of Consultation February 26, 2022 Assessment & Plan (1) Primary osteoarthritis, right shoulder: POD # 1p Right Reverse Total Shoulder Arthroplasty(Right), biceps tenodesis.- Kenji Edwards MD. EBL 40cc PT/OT/pain management/DVT prophylaxis per primary service Patient still having some residual numbness/tingling/decreased mobility R hand due to nerve block Warning signs discussed Per patient, plans for d/c today and outpatient therapy once seen in follow up (2) Dyslipidemia: continue atorvastatin 10mg (3) Hypothyroidism: continue Synthroid 75mcg daily (4) Alyson's thyroiditis: (5) Right knee DJD: pain control as above (6) Anxiety: continue hydroxyzine prn (7) Asthma: continue home meds, albuterol HFA continue incentive spirometer on RA (8) Depression: continue escitalopram Plan Thank you for allowing hospitalist service to participate in the care of Mrs Rush . Hospitalist sign off at this time. Please call with any questions/concerns Supervising Physician Co-Signing Physician Notes Patient was seen and examined independently I discussed the case with Angelique Lopez PAC I reviewed pertinent past medical social family history and also the plan of care and agree with the plan of care. Patient is in her first postoperative day visit she had a mild headache but was doing well was actually participating with physical therapy when I saw her she has no complaints or problems pain is in good control she is anticipating going home and her is there for her ride Physical exam her shows no distress with cardiopulmonary system her distal right hand has good hiv nurse strength capillary refill and sensation Patient medically stable for discharge home at this time Any exceptions will be noted below History of Present Illness Reason for Consultation: Dr Edwards Requesting Physician: med management Attending Physician: Kenji Edwards MD History of Present Illness 71yo female with PMHx significant for COPD, HTN, HLD, asthma, hypothyroidism, GERD, anxiety presented for right reverse total shoulder arthroplasty with Dr Edwards on 02/25. Patient evaluated POD1 in bathroom, up getting washed up and hopeful for discharge. Currently without pain, but nerve block still working and having residual numbness/tingling to her right hand/fingers and unable to hiv nurse utensils to butter her toast this morning. She states no fever/chills, chest pain, shortness of breath, abdominal pain, nausea or vomiting. Just moved her bowels and uses metamucil at home. She would like her called to give him plenty of time to travel as she doesn't like to have him valdes driving over [facility]. Will have nursing contact him. Questions/concerns addressed at this time. Allergies Allergy/AdvReac Type Severity Reaction Status Date / Time dicloxacillin Allergy Mild Hives, GI Verified 02/25/22 11:38 upset adhesive Allergy Unknown Skin Verified 02/25/22 11:38 redness, irritation meperidine Allergy Unknown Rash Verified 02/25/22 11:38 phenytoin Allergy Unknown Rash Verified 02/25/22 11:38 propoxyphene Allergy Unknown Rash Verified 02/25/22 11:38 tetanus toxoid, adsorbed Allergy Unknown Rash Verified 02/25/22 11:38 Iodine and Iodide Containing Allergy Rash Verified 02/25/22 11:48 Produc aspirin AdvReac Unknown GI upset Verified 02/25/22 11:38 Home Medications Medication Instructions Recorded Confirmed Type psyllium husk (with sugar) 3.4 1 tsp PO QPM 01/12/19 02/25/22 History gram oral powder packet (Metamucil (with sugar)) albuterol sulfate 90 mcg/actuation 2 puffs inhalation Q4H PRN 07/19/19 02/25/22 Rx aerosol inhaler shortness of breath or wheezing #8.5 grams gabapentin 300 mg capsule 300 mg PO BID #180 caps 05/19/21 02/25/22 Rx levothyroxine 75 mcg tablet 75 mcg PO QAM #90 tabs 05/19/21 02/25/22 Rx escitalopram oxalate 10 mg tablet 10 mg PO QAM #90 tabs 09/01/21 02/25/22 Rx oxybutynin chloride 10 mg 10 mg PO DAILY PRN Sweating #90 09/29/21 02/25/22 Rx tablet,extended release 24 hr tabs (Ditropan XL) omeprazole 40 mg capsule,delayed 40 mg PO QAM #90 caps 10/20/21 02/25/22 Rx release atorvastatin 10 mg tablet 10 mg PO QPM 01/28/22 02/25/22 History hydroxyzine HCl 10 mg tablet 10 mg PO QPM PRN itching 01/28/22 02/25/22 History ciprofloxacin 0.3 %-dexamethasone 4 drp otic (ear) BID #15 mL 02/18/22 02/25/22 Rx 0.1 % ear drops,suspension (Ciprodex) acetaminophen 500 mg tablet 1,000 mg PO Q8 #60 tabs 02/26/22 Rx (Tylenol Extra Strength) oxycodone 5 mg tablet 5 - 10 mg PO .Q4h-6h PRN pain #30 02/26/22 Rx tabs Patient History Medical History Anxiety Asthma Stable Chronic left-sided low back pain Cochlear implant in place Right DDD (degenerative disc disease) Dyslipidemia GERD (gastroesophageal reflux disease) controlled History of high cholesterol History of vertigo Hypertension Hypothyroid Obesity Primary osteoarthritis, right shoulder Sensorineural hearing loss (SNHL) of both ears Surgical History H/O hysterectomy for benign disease H/O mastoidectomy History of cholecystectomy History of cochlear implant History of colonoscopy History of esophagogastroduodenoscopy (EGD) History of lumbar fusion L3-5 decompression, L3-S1 fusion (09/19/19): Grade view 3, MAC 3.0, ETT 7.0 at [facility]. No issues noted per post-op anesthesia progress note. History of neck surgery Fusion History of repair of left rotator cuff History of repair of right rotator cuff History of total right knee replacement Hx of bilateral cataract extraction S/P anal fissurectomy Family History Mother Diabetes Hearing loss Heart disease Hypertension Mother Family history of diabetes mellitus (DM) Sister Diabetes Family history of diabetes mellitus (DM) Colon cancer Other No family history of allergies No family history of bleeding disorder Denies family history of Cancer Stroke Asthma Social History Smoking Status: Never smoker Second Hand Exposure: No; Do You Dip or Chew Tobacco: No; Tobacco Cessation Education Requested by Patient: No Hx Alcohol Use: No Hx Substance Use: No Preferred Language: Romanian Communication Ability: Effective Boxing Instructor Required: No Beliefs That Will Affect Care: None marital status: Current Living Situation: Spouse current occupational status: retired How many Children do You have: 3 Other Information That Helps Us Care for You: No Feels Safe at Home: Yes Safety Concerns: Feels Safe At This Time caffeine: Yes Seatbelt Use: always Assistive Devices: Cane Review of Systems Review of Systems: All systems reviewed & are unremarkable except as noted in HPI & below Physical Exam Physical Exam: General: WD/WN female washing up in bathroom, NAD HEENT: head normocephalic, atraumatic, mmm, pupils equal and reactive Resp: CTAB, no w/c/r, diminished in the bases, on room air CV: RRR, no m/r/g, no edema MSK/Neuro: R shoulder in sling, minimal swelling. decreased sensation to fingers/decreased mobility (nerve block still working) Skin: warm, dry Psych: aox3, pleasant and cooperative Results & Data Results & Data ([facility]) Vital Signs (Past 12 Hours) Vital Signs Temp Pulse Pulse Resp BP Pulse Ox O2 Del Method 02/26/22 05:54 36.7 C 79 16 158/74 H 91 Room Air 02/26/22 03:48 36.8 C 83 16 154/76 H 91 Room Air 02/25/22 22:56 36.9 C 85 16 147/75 H 91 Room Air 02/25/22 20:31 36.6 C 84 15 145/78 H 91 Room Air Laboratory Results 02/26/22 02/26/22 02/25/22 Range/Units 05:58 05:58 11:00 WBC 7.99 (4.8-10.8) K/ul RBC 3.92 L (3.93-5.22) M/uL Hgb 11.5 L (12.0-16.0) g/dl Hct 35.3 (34.1-44.9) % MCV 90.1 (80.0-100.0) fL MCH 29.3 (25.0-34.0) pg MCHC 32.6 (32.0-36.0) g/dL RDW Std Deviation 47.1 H (36.4-46.3) fL RDW Coeff of Didi 14.4 (11.5-14.5) % Plt Count 360 (130-400) K/uL MPV 9.7 (9.4-12.3) fL Immature Gran % (Auto) 0.5 % Neut % (Auto) 80.7 % Lymph % (Auto) 14.1 % [place] % (Auto) 4.6 % Eos % (Auto) 0.1 % Baso % (Auto) 0.0 % Neut # (Auto) 6.44 (1.4-6.5) K/uL Lymph # (Auto) 1.13 L (1.2-3.4) K/uL [place] # (Auto) 0.37 (0.24-0.82) K/uL Eos # (Auto) 0.01 (0-0.50) K/uL Baso # (Auto) 0.00 (0-0.2) K/uL Immature Gran # (Auto) 0.04 H (0.00-0.02) K/uL Sodium 138 (136-145) mmol/L Potassium 4.3 (3.5-5.1) mmol/L Chloride 107 (98-107) mmol/L Carbon Dioxide 24 (21-32) mmol/L Anion Gap 7 (3-11) BUN 16 (6-23) mg/dl Creatinine 1.00 (0.6-1.2) mg/dl Est Cr Clr Drug Dosing 51.6 ml/min Est GFR ( Amer) 65.2 ml/min Est GFR (Non-Af Amer) 56.2 ml/min BUN/Creatinine Ratio 16.0 (10-20) Glucose 125 H (70-99(Fasting)) mg/dl Calcium 9.2 (8.5-10.1) mg/dl SARS-CoV-2, RNA, NAAT NEGATIVE (NEGATIVE) Diagnostic Findings Shoulder X-Ray 02/25/22 14:57 XR shoulder RT min 2V routine CLINICAL HISTORY: Post shoulder surgery COMPARISON STUDY: FINDINGS: Status post reverse right total shoulder arthroplasty. The hardware appears intact. Skin chandler and surgical drains are in place. No acute fracture or dislocation. Old, healed distal right clavicle fracture is noted. IMPRESSION: Status post reverse right total shoulder arthroplasty. No evidence for hardware complication. ACT 112: Negative or not required by law. Electronically signed by: Harry Jolly M.D. 02/25/2022 4:47 PM PG Care Time/CCT Total # of Minutes Spent Total Time Spent with Patient: Total time spent is greater than 50% in coordination of care (as documented) at patient's floor/unit and/or counseling patient: Coding Level of Care Code 23474 Inpt Consult Level 2 Diagnoses Primary osteoarthritis, right shoulder M19.011 Dyslipidemia E78.5 Hypothyroidism E03.9 Alyson's thyroiditis E06.3 Right knee DJD M17.11 Anxiety F41.9 Asthma J45.909 Depression F32.9
[2022-02-26] MEDS: DOCUSATE SODIUM 100 MG CAP PO SCH (08:53)
[2022-02-26] MEDS: CIPRO 0.3%/DEXAMETHASONE 0.1% OTIC SUSP 7.5ML OT SCH (08:54)
[2022-02-26] MEDS ORDERED: PANTOprazole 40 MG TAB PO SCH (09:00)
[2022-02-26] MEDS ORDERED: GABAPENTIN 300 MG CAP PO SCH (09:00)
[2022-02-26] MEDS ORDERED: ESCITALOPRAM OXALATE 10 MG TAB PO SCH (09:00)
[2022-02-26] MEDS ORDERED: MULTIVITAMIN TAB PO SCH (09:00)
--- NOTE | 2022-02-26 09:40 | Orthopedic Progress Note ---
Date of Service February 26, 2022 Assessment & Plan (1) Primary osteoarthritis, right shoulder: Plan: Postop day #1 right reverse total shoulder arthroplasty -PT/OT: No shoulder motion, no formal therapy until about 6 weeks postop. May do elbow/wrist/hand motion, shrugs, pendulums -Pain management as written -DVT prophylaxis: SCDs -AM labs: Hemoglobin at 11.5 from 13 preop. Acute blood loss anemia due to surgical loss versus dilutional. -Discharge planning: Plan on discharge home later today after PT. Admission and Anticipated Discharge Date Admission Date: February 25, 2022 Subjective Patient is postop day #1 right reverse total shoulder. She is doing well postoperatively. Has little to no pain. Numbness in her hand is decreasing, re sidual from block. She has no current complaints. Denies chest pain, shortness of breath, dizziness, headaches, nausea/vomiting. Review of Systems Review of Systems: All systems reviewed & are unremarkable except as noted in Subjective Physical Exam Physical Exam: Right shoulder sling in place. Dressings clean, dry, intact. Hemovac in place. Fingers are mobile with mild weakness with staff development nurse strength. She does have some decreased sensation due to the block. Neurovascular status intact. Constitutional: WD/WN, vitals as above Results & Data ([facility]) Vital Signs (Past 12 Hours) Vital Signs Temp Pulse Pulse Resp BP Pulse Ox O2 Del Method 02/26/22 05:54 36.7 C 79 16 158/74 H 91 Room Air 02/26/22 03:48 36.8 C 83 16 154/76 H 91 Room Air 02/25/22 22:56 36.9 C 85 16 147/75 H 91 Room Air 02/25/22 19:25 Room Air 02/25/22 20:31 36.6 C 84 15 145/78 H 91 Room Air 02/25/22 19:17 36.7 C 88 16 159/83 H 96 Room Air Laboratory Results Lab Results 02/25/22 02/26/22 02/26/22 Range/Units 11:00 05:58 05:58 WBC 7.99 (4.8-10.8) K/ul RBC 3.92 L (3.93-5.22) M/uL Hgb 11.5 L (12.0-16.0) g/dl Hct 35.3 (34.1-44.9) % MCV 90.1 (80.0-100.0) fL MCH 29.3 (25.0-34.0) pg MCHC 32.6 (32.0-36.0) g/dL RDW Std Deviation 47.1 H (36.4-46.3) fL RDW Coeff of Didi 14.4 (11.5-14.5) % Plt Count 360 (130-400) K/uL MPV 9.7 (9.4-12.3) fL Immature Gran % (Auto) 0.5 % Neut % (Auto) 80.7 % Lymph % (Auto) 14.1 % [place] % (Auto) 4.6 % Eos % (Auto) 0.1 % Baso % (Auto) 0.0 % Neut # (Auto) 6.44 (1.4-6.5) K/uL Lymph # (Auto) 1.13 L (1.2-3.4) K/uL [place] # (Auto) 0.37 (0.24-0.82) K/uL Eos # (Auto) 0.01 (0-0.50) K/uL Baso # (Auto) 0.00 (0-0.2) K/uL Immature Gran # (Auto) 0.04 H (0.00-0.02) K/uL Sodium 138 (136-145) mmol/L Potassium 4.3 (3.5-5.1) mmol/L Chloride 107 (98-107) mmol/L Carbon Dioxide 24 (21-32) mmol/L Anion Gap 7 (3-11) BUN 16 (6-23) mg/dl Creatinine 1.00 (0.6-1.2) mg/dl Est Cr Clr Drug Dosing 51.6 ml/min Est GFR ( Amer) 65.2 ml/min Est GFR (Non-Af Amer) 56.2 ml/min BUN/Creatinine Ratio 16.0 (10-20) Glucose 125 H (70-99(Fasting)) mg/dl Calcium 9.2 (8.5-10.1) mg/dl SARS-CoV-2, RNA, NAAT NEGATIVE (NEGATIVE)
--- NOTE | 2022-02-28 12:52 | Discharge Summary ---
Date of Service February 28, 2022 Admission HPI Per Admitting Provider 71-year-old female with past medical history significant for hypothyroidism, HTN who presents with ongoing right shoulder pain. Pain is interfering with her daily activities. She has failed conservative measures including therapy as well as injections. She would like to proceed with surgical invention. Patient denies headaches, sweats, fevers, chills, double vision, blurred vision, cough, sore throat, dysphagia, chest pain, sob, wheezing, n/v/d/c, numbness, tingling, fatigue, urinary symptoms, mood disorders. ROS positive for right shoulder pain and stiffness. Admission Exam Per Admitting Provider Physical Exam Constitutional: well developed and well nourished; no acute distress Eyes: PERRL, conjunctivae normal, anicteric sclerae ENMT: external ear and nose normal, oropharynx normal Neck: trachea midline, no thyromegaly Respiratory: normal respiratory effort, lungs clear to auscultation Cardiovascular: RRR, no murmur, no edema Musculoskeletal: Right shoulder: Surgical scars are well-healed. She has crepitation with range of motion. There is tenderness diffusely about the shoulder. Positive impingement signs. She has pain at end range of motion pain with resisted strength testing. Range of motion is 80 degrees of abduction, 90 degrees of forward flexion actively. She has weakness in external rotation with 3+/5, 4+/5 internal rotation, 3/5 abduction. Skin: no rashes, warm and dry Neurologic: patellar DTR's 2+ bilat, sensation intact Psychiatric: A+Ox3, euthymic affect Principal Diagnosis Right shoulder osteoarthritis Discharge Data Allergies Allergy/AdvReac Type Severity Reaction Status Date / Time dicloxacillin Allergy Mild Hives, GI Verified 02/25/22 11:38 upset adhesive Allergy Unknown Skin Verified 02/25/22 11:38 redness, irritation meperidine Allergy Unknown Rash Verified 02/25/22 11:38 phenytoin Allergy Unknown Rash Verified 02/25/22 11:38 propoxyphene Allergy Unknown Rash Verified 02/25/22 11:38 tetanus toxoid, adsorbed Allergy Unknown Rash Verified 02/25/22 11:38 Iodine and Iodide Containing Allergy Rash Verified 02/25/22 11:48 Produc aspirin AdvReac Unknown GI upset Verified 02/25/22 11:38 Consultations 02/23/22 13:53 Consult Hospitalist Routine Procedures Performed Operation Date: 02/25/22 12:45 Actual Procedures p Right Reverse Total Shoulder Arthroplasty(Right) - Kenji Edwards MD Ordered Studies 02/25/22 05:00 US - OR guided needle placemen Routine Hospital Course (1) Primary osteoarthritis, right shoulder: Patient:KAYLYNN COTE Admit Date:02/25/22 MR#:[id number] Att Phy:Kenji Edwards M.D. Acct ID:[id number] [place] Phy:Feroz Lance MD Date:1950 Fam Phy: Age:71 Location:3E Sex:F Room/Bed:[facility] cc: ~ *NOTICE TO RECEIVING [employer]/AGENCY This information is strictly Confidential and protected under [place] law. [place] law prohibits you from making any further disclosure of this information unless further disclosure is expressly permitted by the written consent of the person to whom it pertains or is authorized by law. A general authorization for the release of medical or other information is not sufficient for this purpose. Hospital accepts no responsibility if the information is made available to any other person, INCLUDING THE PATIENT. Date of Service February 26, 2022 Assessment & Plan (1) Primary osteoarthritis, right shoulder: Plan: Postop day #1 right reverse total shoulder arthroplasty -PT/OT: No shoulder motion, no formal therapy until about 6 weeks postop. May do elbow/wrist/hand motion, shrugs, pendulums -Pain management as written -DVT prophylaxis: SCDs -AM labs: Hemoglobin at 11.5 from 13 preop. Acute blood loss anemia due to surgical loss versus dilutional. -Discharge planning: Plan on discharge home later today after PT. Admission and Anticipated Discharge Date Admission Date: February 25, 2022 Subjective Patient is postop day #1 right reverse total shoulder. She is doing well postoperatively. Has little to no pain. Numbness in her hand is decreasing, residual from block. She has no current complaints. Denies chest pain, shortness of breath, dizziness, headaches, nausea/vomiting. Review of Systems Review of Systems: All systems reviewed & are unremarkable except as noted in Subjective Physical Exam Physical Exam: Right shoulder sling in place. Dressings clean, dry, intact. Hemovac in place. Fingers are mobile with mild weakness with collections agent strength. She does have some decreased sensation due to the block. Neurovascular status intact. Constitutional: WD/WN, vitals as above Results & Data ([facility]) Vital Signs (Past 12 Hours) Vital Signs Temp Pulse Pulse Resp BP Pulse Ox O2 Del Method 02/26/22 05:54 36.7 C 79 16 158/74 H 91 Room Air 02/26/22 03:48 36.8 C 83 16 154/76 H 91 Room Air 02/25/22 22:56 36.9 C 85 16 147/75 H 91 Room Air 02/25/22 19:25 Room Air 02/25/22 20:31 36.6 C 84 15 145/78 H 91 Room Air 02/25/22 19:17 36.7 C 88 16 159/83 H 96 Room Air Laboratory Results Lab Results 02/25/22 02/26/22 02/26/22 Range/Units 11:00 05:58 05:58 WBC 7.99 (4.8-10.8) K/ul RBC 3.92 L (3.93-5.22) M/uL Hgb 11.5 L (12.0-16.0) g/dl Hct 35.3 (34.1-44.9) % MCV B 90.1 (80.0-100.0) fL MCH 29.3 (25.0-34.0) pg MCHC 32.6 (32.0-36.0) g/dL RDW Std Deviation 47.1 H (36.4-46.3) fL RDW Coeff of Didi 14.4 (11.5-14.5) % Plt Count 360 (130-400) K/uL MPV 9.7 (9.4-12.3) fL Immature Gran % (Auto) 0.5 % Neut % (Auto) 80.7 % Lymph % (Auto) 14.1 % [place] % (Auto) 4.6 % Eos % (Auto) 0.1 % Baso % (Auto) 0.0 % Neut # (Auto) 6.44 (1.4-6.5) K/uL Lymph # (Auto) 1.13 L (1.2-3.4) K/uL [place] # (Auto) 0.37 (0.24-0.82) K/uL Eos # (Auto) 0.01 (0-0.50) K/uL Baso # (Auto)B 0.00 (0-0.2) K/uL Immature Gran # (Auto) 0.04 H (0.00-0.02) K/uL Sodium 138 (136-145) mmol/L Potassium 4.3 (3.5-5.1) mmol/L Chloride 107 (98-107) mmol/L Carbon Dioxide 24 (21-32) mmol/L Anion Gap 7 (3-11) BUN 16 (6-23) mg/dl Creatinine 1.00 (0.6-1.2) mg/dl Est Cr Clr Drug Dosing 51.6 ml/min Est GFR ( Amer) 65.2 ml/min Est GFR (Non-Af Amer) 56.2 ml/min BUN/Creatinine Ratio 16.0 (10-20) Glucose 125 H (70-99(Fasting)) mg/dl Calcium 9.2 (8.5-10.1) mg/dl SARS-CoV-2, RNA, NAAT NEGATIVE (NEGATIVE) Signed By: <Electronically signed by Rohit Alvarado PA-C> 02/26/22 0940 <Electronically signed by Kenji Edwards MD> 02/26/22 1042 Total Time Total Time Spent Total Time Spent (In Minutes): 10 Discharge Plan Discharge Items Patient Disposition: Home - Self-Care Reason For Visit: Right Shoulder Osteoarthritis Discharge Diagnosis: Right Shoulder Osteoarthritis Activity: Per Instructions section Weightbearing Comment: Use sling at all times except for changing clothes/bathing Non-emergency contact: Surgeon Call non-emergency contact if: you have any medication questions, your pain is not controlled, you have a fever, your temperature is above 101.5, your wound has increased redness and your wound has increased drainage Follow-up/Referrals: Feroz Lance MD [Primary Care Provider] - Kenji Edwards MD [Surgeon] - (Follow up with Dr Edwards or his PA Rohit Alvarado in 2 weeks from the day of your surgery.) Diet: Regular Addtl Attending Provider Instructions: ACTIVITY RECOMMENDATIONS: SELF CARE INSTRUCTIONS AFTER TOTAL SHOULDER ARTHROPLASTY REVERSE A. You may do daily exercises as taught in physical therapy while in hospital. No lifting with the operative arm. B. You are to wear your sling/immobilizer at all times EXCEPT when performing y our daily exercises and for hygiene purposes. C. You may perform dry, daily dressing changes. Please keep your incision covered. You may shower 48 hours after surgery. Do not apply soap or any ointment/lotions directly over incision. Do not soak incision in bath tub/swimming pool. D. You may use ice as needed to operative shoulder. SPECIAL CARE INSTRUCTIONS: VERY IMPORTANT TO READ AND REVIEW A. There are a few signs you need to watch for after you are home. Call [facility] at [phone] if you experience any of the followin. Increased severe shoulder pain. Some pain is expected especially when you exercise. 2. Increased swelling in you shoulder or arm; pain or swelling in either upper extremity. 3. Any fluid drainage from the incision. 4. Shortness of breath or chest pain. B. Please call [facility] at [phone] if you have any questions or concerns about your operation or recovery. C. Call your physician if: 1. Temperature is greater than 101 degrees (F). 2. Pain is not relieved by prescribed pain medications. 3. Increase drainage or redness from incision. 4. Unanswered questions or concerns. FOLLOW UP VISIT: Please call [facility] at [phone] to schedule a follow up appointment with Dr. Edwards or his PA in 12-14 days from your surgery date. Stand-Alone Forms: [facility] [employer], Smoking Cessation Medications and DC Order Prescriptions: New acetaminophen [Tylenol Extra Strength] 500 mg Tablet 1,000 mg PO Q8 Qty: 60 0RF oxycodone 5 mg Tablet 5 - 10 mg PO .Q4h-6h MDD 6 PRN (Reason: pain) Qty: 30 0RF Rx Instructions: Ongoing therapy, Dr. Edwards supervising Continued levothyroxine 75 mcg tablet 75 mcg PO QAM Qty: 90 3RF gabapentin 300 mg capsule 300 mg PO BID Qty: 180 3RF escitalopram oxalate 10 mg tablet 10 mg PO QAM Qty: 90 3RF oxybutynin chloride [Ditropan XL] 10 mg tablet extended release 24hr 10 mg PO DAILY PRN (Reason: Sweating) Qty: 90 3RF omeprazole 40 mg capsule,delayed release(DR/EC) 40 mg PO QAM Qty: 90 2RF ciprofloxacin-dexamethasone [Ciprodex] 0.3-0.1 % drops,suspension 4 drp otic (ear) BID Qty: 15 0RF Rx Instructions: 4 drops to each ear BID x 14 days Metamucil (with sugar) 3.4 gram powder in packet 1 tsp PO QPM albuterol sulfate 90 mcg/actuation HFA aerosol inhaler 2 puffs INH Q4H PRN (Reason: shortness of breath or wheezing) Qty: 8.5 5RF Label Comments: HAVEN'T NEEDED FOR LONG TIME atorvastatin 10 mg tablet 10 mg PO QPM hydroxyzine HCl 10 mg tablet 10 mg PO QPM PRN (Reason: itching) Discontinued acetaminophen [Tylenol Extra Strength] 500 mg Tablet 1,500 mg PO UD PRN (Reason: Pain) celecoxib 200 mg capsule 200 mg PO QAM PRN (Reason: pain) Discharge Orders: Discharge Order (Routine); Ordered 02/26/22 Ordered By: Rohit Alvarado Admission Data Admit Date/Time: 02/25/22 14:57 Attending Provider: Kenji Edwards Admit Provider: Kenji Edwards Primary Care Provider: Feroz Lance Other Interventions: Discharge Summary Assessment (RN) Last Done: 02/26/22 10:20
== END 2022-02-26 12:09 | disposition home or self-care (01) | DRG 483 ==
LOC: ASU 10:38 → 3E 14:57

== ENCOUNTER 2023-02-04 09:27 | Inpatient (IN) ==
--- NOTE | 2023-01-18 15:34 | PAT Medication Instructions ---
Medication Instructions Date of Service January 18, 2023 Home Medications Medication Instructions Recorded albuterol sulfate 90 mcg/actuation 2 puffs inhalation Q4H PRN 07/19/19 aerosol inhaler shortness of breath or wheezing #8.5 grams gabapentin 300 mg capsule 300 mg PO BID #180 caps 04/06/22 levothyroxine 75 mcg tablet 75 mcg PO QAM #90 tabs 04/06/22 hydroxyzine HCl 10 mg tablet 10 mg PO QPM PRN itching #30 tabs 04/27/22 omeprazole 40 mg capsule,delayed 40 mg PO QAM #90 caps 06/22/22 release escitalopram oxalate 10 mg tablet 10 mg PO QAM #90 tabs 07/27/22 psyllium husk (with sugar) 3.4 gram oral powder packet (Metamucil (with sugar)) 1 tsp PO QPM albuterol sulfate 90 mcg/actuation aerosol inhaler 2 puffs inhalation Q4H PRN gabapentin 300 mg capsule 300 mg PO BID levothyroxine 75 mcg tablet 75 mcg PO QAM hydroxyzine HCl 10 mg tablet 10 mg PO QPM PRN omeprazole 40 mg capsule,delayed release 40 mg PO QAM escitalopram oxalate 10 mg tablet 10 mg PO QAM acetaminophen 500 mg tablet (Tylenol Extra Strength) 1,000 mg PO Q8 PRN atorvastatin 10 mg tablet (Lipitor) 10 mg PO QPM celecoxib 200 mg capsule 200 mg PO QAM oxybutynin chloride 5 mg tablet,extended release 24 hr 5 mg PO QAM ASK your surgeon for instructions celecoxib 200 mg capsule 200 mg PO QAM Take morning of surgery With a small sip of water, OTHERWISE NOTHING TO EAT OR DRINK AFTER MIDNIGHT: albuterol sulfate 90 mcg/actuation aerosol inhaler 2 puffs inhalation Q4H PRN (use if needed; please bring with you to hospital day of surgery if possible) gabapentin 300 mg capsule 300 mg PO BID levothyroxine 75 mcg tablet 75 mcg PO QAM omeprazole 40 mg capsule,delayed release 40 mg PO QAM escitalopram oxalate 10 mg tablet 10 mg PO QAM acetaminophen 500 mg tablet (Tylenol Extra Strength) 1,000 mg PO Q8 PRN(if needed) oxybutynin chloride 5 mg tablet,extended release 24 hr 5 mg PO QAM Take evening before surgery psyllium husk (with sugar) 3.4 gram oral powder packet (Metamucil (with sugar)) 1 tsp PO QPM albuterol sulfate 90 mcg/actuation aerosol inhaler 2 puffs inhalation Q4H PRN(if needed) gabapentin 300 mg capsule 300 mg PO BID hydroxyzine HCl 10 mg tablet 10 mg PO QPM PRN(if needed) acetaminophen 500 mg tablet (Tylenol Extra Strength) 1,000 mg PO Q8 PRN(if needed) atorvastatin 10 mg tablet (Lipitor) 10 mg PO QPM Other Notes If you have any questions please call us at [phone] or [phone] or [phone] or [phone]
--- NOTE | 2023-01-20 11:29 | Anesthesiology Consultation ---
Date of Service January 20, 2023 Assessment & Plan (1) Encounter for pre-operative examination: Chart Review Chart Review: Acceptable Risk for Surgery and Patient seen in Pre Admission Testing Per PAT appt on 01/20/23, patient denies any recent travel or large group activities. Pt is NOT vaccinated for Covid. Will leave to surgeon's discretion if preop Covid testing needed. Educated on importance of using Covid precautions one week prior to surgery Pt seen by PCP 01/21/23= "Regarding back surgery scheduled with Dr. Castillo on February 04, based on available information there are no contraindications. Continue acetaminophen or Tylenol 500 mg, 2 pills up to 3 times daily as needed. Avoid aspirin and NSAID medications including Celebrex for a week prior to the procedure. Right Reverse TSA 09/28/20= Done under [place] with Grade 1 view with Hall #2. ETT #7.5. History Surgery Operation Date: 02/04/23 07:45 Proposed Procedures p L1-L3 Decompression, T11-L3 Fusion, Spinal Cord Monitoring - Klever Castillo, DO Height/Weight Height: 5 ft 2 in Weight: 88.6 kg Allergies Allergy/AdvReac Type Severity Reaction Status Date / Time adhesive Allergy Severe Skin Verified 01/21/23 13:15 redness, irritation iodine Allergy Severe topical -> Verified 01/21/23 13:15 Rash meperidine Allergy Severe Rash Verified 01/21/23 13:15 dicloxacillin Allergy Mild Hives, GI Verified 01/21/23 13:15 upset phenytoin Allergy Unknown Rash Verified 01/21/23 13:15 propoxyphene Allergy Unknown Rash Verified 01/21/23 13:15 tetanus toxoid, adsorbed Allergy Unknown Rash Verified 01/21/23 13:15 aspirin AdvReac Unknown GI upset Verified 01/21/23 13:15 Medications Home Medications Medication Instructions Recorded Confirmed Last Taken psyllium husk (with sugar) 3.4 1 tsp PO QPM 01/12/19 01/21/23 02/24/22 10:00 gram oral powder packet (Metamucil (with sugar)) gabapentin 300 mg capsule 300 mg PO BID #180 caps 04/06/22 01/21/23 Unknown levothyroxine 75 mcg tablet 75 mcg PO QAM #90 tabs 04/06/22 01/21/23 Unknown hydroxyzine HCl 10 mg tablet 10 mg PO QPM PRN itching #30 tabs 04/27/22 01/21/23 Unknown omeprazole 40 mg capsule,delayed 40 mg PO QAM #90 caps 06/22/22 01/21/23 Unknown release escitalopram oxalate 10 mg tablet 10 mg PO QAM #90 tabs 07/27/22 01/21/23 Unknown acetaminophen 500 mg tablet 1,000 mg PO Q8 PRN Pain 01/18/23 01/21/23 Unknown (Tylenol Extra Strength) atorvastatin 10 mg tablet (Lipitor) 10 mg PO QPM 01/18/23 01/21/23 Unknown celecoxib 200 mg capsule 200 mg PO QAM 01/18/23 01/21/23 Unknown tolterodine 4 mg capsule,extended 4 mg PO DAILY #30 caps 01/21/23 01/21/23 Unknown release 24 hr sulfamethoxazole 800 1 tab PO BID 5 days #10 tabs 01/24/23 Unknown mg-trimethoprim 160 mg tablet Past Medical History Medical History (Updated 01/24/23 @ 16:23 by Feroz Lance MD) Anxiety Asthma Stable; breathing controlled Chronic low back pain Cochlear implant in place Right DDD (degenerative disc disease) Dyslipidemia GERD (gastroesophageal reflux disease) controlled History of vertigo Intermittent x years Hypertension Hypothyroid Obesity Overactive bladder Recurrent UTI Sensorineural hearing loss (SNHL) of both ears Urinary hesitancy Exercise / Class Metabolic Activity III < 4 Walking/Shop/Light housework (no chest pain or SOB - with flat surface ambulation ) Past Family History Family History Mother Diabetes Hearing loss Heart disease Hypertension Mother Family history of diabetes mellitus (DM) Sister Diabetes Family history of diabetes mellitus (DM) Colon cancer Other No family history of allergies No family history of bleeding disorder Denies family history of Cancer Stroke Asthma Past Surgical History Surgical History H/O hysterectomy for benign disease H/O mastoidectomy History of cholecystectomy History of cochlear implant History of colonoscopy History of esophagogastroduodenoscopy (EGD) History of lumbar fusion L3-5 decompression, L3-S1 fusion (09/19/19): Grade view 3, MAC 3.0, ETT 7.0 at [facility]. No issues noted per post-op anesthesia progress note. History of neck surgery Fusion History of repair of left rotator cuff History of repair of right rotator cuff History of total right knee replacement Hx of bilateral cataract extraction S/P anal fissurectomy S/p reverse total shoulder arthroplasty Right Past Anesthesia History No Hx of Anesthesia Complications and No Family Hx of Anesthesia Complications History of PONV No Hx of PONV and No Hx of Motion Sickness Social History Smoking Status: Never smoker Do You Dip or Chew Tobacco: No Hx Alcohol Use: No Hx Substance Use: No substance use type: does not use Review of Systems Mild snoring- no witnessed apnea- no hx of sleep study Patient denies chest pain, shortness of breath, dyspnea on exertion, cough, wheezing, palpitations. No hx of seizures, stroke, [place]. No hx of blood clots or blood transfusions Physical Exam Vital Signs VITALS BP 165/75 P 68 TEMP 97.8 SP02 97% RESP 16 Constitutional no acute distress ENMT Mouth: no TMJ clicking Thyromental Distance: > or= 3.5 Finger Breadths (3.5) Mallampati Class: III Full dentures on top and bottom Neck + limited neck extension (significant ) Respiratory normal respiratory effort; no respiratory distress Auscultation: lungs clear to auscultation bilaterally; no wheezes Cardiovascular Rate/Rhythm: regular rate and regular rhythm Heart Sounds: no murmur Vessels: no carotid bruit Musculoskeletal Spine: no pain with cervical ROM Extremities: extremities normal to inspection Psychiatric Orientation: alert Lab Results Anesthesia Preop Results Results Anesthesia Widget: WBC 6.70 K/ul (4.8-10.8) 01/20/23 Hgb 12.2 g/dl (12.0-16.0) 01/20/23 Hct 38.6 % (37.0-47.0) 01/20/23 Plt 397 K/uL (130-400) 01/20/23 Na 139 mmol/L (136-145) 01/20/23 K 3.9 mmol/L (3.5-5.1) 01/20/23 Cl 106 mmol/L (98-107) 01/20/23 CO2 27 mmol/L (21-32) 01/20/23 BUN 16 mg/dl (6-23) 01/20/23 Creat 0.94 mg/dl (0.6-1.2) 01/20/23 Glucose Level 77 mg/dl (70-99(Fasting)) 01/20/23 PT 10.3 Seconds (9.0-12.0) 01/20/23 PTT 23.9 Seconds (21.0-31.0) 01/20/23 INR 0.9 (0.9-1.1) 01/20/23 Urine Color Yellow 01/20/23 Urine Appearance Clear (Clear) 01/20/23 Urine pH 5.5 (4.5-7.5) 01/20/23 Urine Specific [place] 1.013 (1.000-1.030) 01/20/23 Urine Protein Negative (Negative) 01/20/23 Urine Glucose (UA) Negative (Negative) 01/20/23 Urine Ketones Negative (Negative) 01/20/23 Urine Blood Negative (Negative) 01/20/23 Urine Nitrite Negative (Negative) 01/20/23 Urine Bilirubin Negative (Negative) 01/20/23 Urine Urobilinogen Negative (Negative) 01/20/23 Urine Leukocyte Esterase 1+ (Negative) H 01/20/23 Urine WBC (Auto) 5-10 /hpf (0-5) H 01/21/23 Urine RBC (Auto) 0-4 /hpf (0-4) 01/21/23 Urine Hyaline Casts (Auto) 0 /lpf (0-5) 01/21/23 Urine Epithelial Cells (Auto) 10-20 /lpf (0-5) H 01/21/23 Urine Bacteria (Auto) 4+ (Negative) H 01/21/23 Blood Type A Negative 01/20/23 Antibody Screen NEGATIVE 01/20/23 Testing Electrocardiogram Date: 01/20/23 Findings: + NSR @ (60bpm) Normal EKG per cardio Chest X-Ray Date: 01/20/23 Findings: + NAD FINDINGS: Cardiomediastinal and hilar silhouettes are within normal limits. No pneumothorax, pleural effusion, airspace consolidation or pulmonary edema. Right shoulder arthroplasty. Cervical spinal fusion hardware. Cholecystectomy. COVID-19 Risk Screen Screening Information COVID-19 Screen Date: 01/20/23 Exposure 21 Days Family/Household +COVID Last 21 Days: No Exposure 10 Days Any COVID Exposure Last 10 Days: No Symptoms Last 10 Days Experienced COVID Sx Last 10 Days: No + COVID 0-90 Days COVID + in Last 0-90 Days: No Risk Plan COVID Risk Plan: No Risk Identified Patient Education COVID Preop Screening Education Complete: Yes
[~2023-02-04 09:27] MED LIST changes: -ALLERGY Noted to ORDERED Medication SCH; -BUPIVACAINE 0.5 % 5 MG/1 ML PF 10ML VIAL ONE; +CLINDAMYCIN/D5W 900 MG/50 ML BAG IV SCH; -FAMOTIDINE 20 MG TAB PO SCH; -METOCLOPRAMIDE HCL 10 MG TABLET PO SCH; -TRANEXAMIC ACID 1,000 MG **IV Intra-op IV SCH; -TRANEXAMIC ACID 1,000 MG **IV Pre-op IV SCH; -VANCOMYCIN HCL 1,250 MG in SODIUM CHLORIDE 0.9% 250 ML IV SCH; -dexAMETHasone 4 MG TAB PO SCH
[2023-02-04] MEDS ORDERED: LIDOCAINE 2% 2 ML VIAL/AMP(20MG/ML) INFIL ONE ×2 (10:39)
[2023-02-04] MEDS ORDERED: PROPOFOL IV EMULSION 10 MG/ML 20 ML VIAL IV ONE (10:39)
[2023-02-04] MEDS ORDERED: ONDANSETRON INJ 2 MG/ML 2 ML VIAL ONE (10:39)
[2023-02-04] MEDS ORDERED: ROCURONIUM BROMIDE 10 MG/ML 5 ML VIAL IV ONE ×5 (10:39→12:56)
[2023-02-04] MEDS ORDERED: DEXAMETHASONE SOD INJ 4 MG/ML VIAL ONE ×2 (10:39)
[2023-02-04] MEDS ORDERED: GLYCOPYRROLATE 0.2 MG/ML VIAL ONE ×3 (11:30→14:12)
[2023-02-04] MEDS ORDERED: ePHEDrine sulfate 50 MG/ML AMP IV PRN (11:51)
[2023-02-04] MEDS ORDERED: ONDANSETRON INJ 2 MG/ML 2 ML VIAL IV PRN ×2 (11:51→16:07)
[2023-02-04] MEDS ORDERED: ATROPINE SULFATE 0.1 MG/ML 10ML SYR IV PRN (11:51)
--- NOTE | 2023-02-04 11:51 | History & Physical Bridge Note ---
Date of Service February 04, 2023 History & Physical Bridge Note I have examined the patient, reviewed the History & Physical and in the interval since the performance of the History & Physical I have noted the following changes of clinical significance: no changes noted
--- NOTE | 2023-02-04 11:53 | History & Physical Report ---
Date of Service February 04, 2023 Assessment & Plan (1) Neurogenic claudication due to lumbar spinal stenosis: Plan: L1-L3 decompression, T11-L3 fusion with possible hardware removal History of Present Illness Chief Complaint: Back and leg pain Primary Care Provider: Feroz Lance MD This is a 72-year-old female presents with marked decline in status with chronic persistent back and right leg pain and failing since course of nonoperative care she is here for surgical invention. Allergies Allergy/AdvReac Type Severity Reaction Status Date / Time adhesive Allergy Severe Skin Verified 02/04/23 10:01 redness, irritation iodine Allergy Severe topical -> Verified 02/04/23 10:01 Rash meperidine Allergy Severe Rash Verified 02/04/23 10:01 dicloxacillin Allergy Mild Hives, GI Verified 02/04/23 10:01 upset propoxyphene Allergy Mild Rash Verified 02/04/23 10:02 tetanus toxoid, adsorbed Allergy Mild Rash Verified 02/04/23 10:02 phenytoin Allergy Unknown Rash Verified 02/04/23 10:01 aspirin AdvReac Severe GI upset Verified 02/04/23 10:02 Home Medications Medication Instructions Recorded Confirmed Type psyllium husk (with sugar) 3.4 1 tsp PO QPM 01/12/19 02/04/23 History gram oral powder packet (Metamucil (with sugar)) hydroxyzine HCl 10 mg tablet 10 mg PO QPM PRN itching #30 tabs 04/27/22 02/04/23 Rx omeprazole 40 mg capsule,delayed 40 mg PO QAM #90 caps 06/22/22 02/04/23 Rx release acetaminophen 500 mg tablet 1,000 mg PO Q8 PRN Pain 01/18/23 02/04/23 History (Tylenol Extra Strength) atorvastatin 10 mg tablet (Lipitor) 10 mg PO QPM 01/18/23 02/04/23 History celecoxib 200 mg capsule 200 mg PO QAM 01/18/23 02/04/23 History gabapentin 300 mg capsule 300 mg PO BID #180 caps 02/02/23 02/04/23 Rx levothyroxine 75 mcg tablet 75 mcg PO QAM #90 tabs 02/02/23 02/04/23 Rx escitalopram oxalate 10 mg tablet 10 mg PO QAM 02/04/23 02/04/23 History (Lexapro) Past Med/Surg History Medical History (Updated 02/04/23 @ 11:52 by Klever Castillo DO) Anxiety Asthma Stable; breathing controlled Chronic low back pain Cochlear implant in place Right DDD (degenerative disc disease) Dyslipidemia GERD (gastroesophageal reflux disease) controlled History of vertigo Intermittent x years Hypertension Hypothyroid Injury of left elbow work related injury required ligament repair Obesity Overactive bladder Recurrent UTI Sensorineural hearing loss (SNHL) of both ears Urinary hesitancy Surgical History H/O hysterectomy for benign disease H/O mastoidectomy History of cholecystectomy History of cochlear implant History of colonoscopy History of esophagogastroduodenoscopy (EGD) History of lumbar fusion L3-5 decompression, L3-S1 fusion (09/19/19): Grade view 3, MAC 3.0, ETT 7.0 at [facility]. No issues noted per post-op anesthesia progress note. History of neck surgery Fusion History of repair of left rotator cuff History of repair of right rotator cuff History of total right knee replacement Hx of bilateral cataract extraction S/P anal fissurectomy S/p reverse total shoulder arthroplasty Right Family History Mother Diabetes Hearing loss Heart disease Hypertension Mother Family history of diabetes mellitus (DM) Sister Diabetes Family history of diabetes mellitus (DM) Colon cancer Other No family history of allergies No family history of bleeding disorder Denies family history of Cancer Stroke Asthma Social History Smoking Status: Never smoker Second Hand Exposure: No; Do You Dip or Chew Tobacco: No; Tobacco Cessation Education Requested by Patient: No Hx Alcohol Use: No Hx Substance Use: No Preferred Language: Beninese Communication Ability: Effective 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: No Beliefs That Will Affect Care: None marital status: Current Living Situation: Spouse current occupational status: retired How many Children do You have: 3 Other Information That Helps Us Care for You: No Feels Safe at Home: Yes Safety Concerns: Feels Safe At This Time caffeine: Yes Seatbelt Use: always Assistive Devices: Cane, Denture - Upper, Denture - Lower, Glasses and Hearing Aid - Left Physical Exam Physical Exam: Patient is alert and oriented Heart regular rhythm Lungs clear Results & Data Results & Data Vital Signs (Past 12 Hours) Vital Signs Temp Pulse Resp BP Pulse Ox O2 Del Method 02/04/23 10:07 36.9 C 71 20 187/79 H 98 Room Air
[2023-02-04] MEDS ORDERED: fentaNYL citrate PF 100 MCG/2 ML VIAL ONE (12:00)
[2023-02-04] MEDS ORDERED: MIDAZOLAM HCL 1 MG/ML 2ML VIAL ONE (12:00)
[2023-02-04] MEDS ORDERED: BUPIVACAINE/EPINEPHRINE 0.25% 1:200,000 30 ML VIAL ONE (12:02)
[2023-02-04] MEDS ORDERED: ceFAZolin 330 MG/ML 1 GM VIAL ONE (12:02)
[2023-02-04] MEDS ORDERED: HYDROmorphone INJ 2 MG/ML SYR/VIAL ONE (13:37)
[2023-02-04] MEDS ORDERED: FLOSEAL HEMOSTATIC MATRIX 10ML TOP ONE (14:01)
--- NOTE | 2023-02-04 14:11 | Operative Report ---
Post Operative Report Pre & Post Diagnosis Operation Date: 02/04/23 11:05 Pre-Op Diagnosis: Neurogenic claudication due to lumbar spinal stenosis Post-Op Diagnosis: Neurogenic claudication due to lumbar spinal stenosis I identified the patient and participated in the time-out.: Yes Procedure Operation Date: 02/04/23 11:05 Actual Procedures 1. Removal of posterior instrumentation L3-L5. #2 exploration of fusion L3-L5. #3 lumbar decompression bilateral medial facetectomies and foraminotomies L1-L2 L2-L3. #4 posterior spinal fusion L2-L3. #5 placement posterior instrumentation L2-L5. #6 interbody fusion L2-L3. #7 placement Spira 10 x 26 mm at L2-L3. #8 placement locally harvested morselized autograft in the posterior gutters. #9 placement of I factor in the interbody space and infuse collagen sponge from mass graft in the posterior lateral gutters. Surgeon Klever Castillo, DO Sieve Repairer Whitley Mclaughlin Estimated Blood Loss 200 Findings See Below The patient is 5 foot 2 weighing over 88 kg with a BMI in excess of 35. The patient body was did contribute to significant technical difficulty required deeper retractors longer instruments in order to perform her procedure. This added at least 50% increased operative time. Specimens none Indications This is a 72-year-old female who presents with chronic persistent back and leg pain after failing course of nonoperative care is here for the above-mentioned procedure. Description of Procedure Patient was met with identified informed consent obtained. Patient was then taken to the operative suite underwent a patient placed in a prone position the [facility] Brian frame. All bony promises well-padded eyes inspected to ensure no external pressure placed upon the. This point the lumbar spine was prepped and draped in a sterile fashion. Sharp dissection with the assistance of Bovie cautery to form down to and exposing the lamina transverse processes of L2 and instrumentation L3-L4-L5 bilaterally. Then proceeded move the hardware bilaterally explore the fusion mass noting it to be mature and intact. Then performed complete laminectomy of L4 to pressure laminectomy L1 including bilateral medial facetectomies and foraminotomies addressing severe spinal stenosis. Pedicle screws were then placed in L2-L3 and L5 bilaterally with assistance of fluoroscopy the properly sized judith placed. By way of a trans foraminal approach and right complete discectomy of L2-L3 was performed endplates curetted to subcortically bone and a 10 x 26 mm Spira cage with I factor tapped the position. The rods were then locked in final position bilaterally. The transverse processes of L2-L3 burred to subcortical bleeding wound. Infuse collagen sponge mass graft locally harvested morselized autograft was placed in the posterior gutters. 15 round SHAVONNE drain inserted. The incision was then closed with 1 Vicryl the fascia 2-0 Vicryl subcutaneously and 4 Monocryl for final skin closure. Steri-Strips sterile dressing placed. Patient awakened taken to PACU stable condition. Please note spinal cord monitoring was last at the procedure no changes noted. Lastly Whitley Mclaughlin was present at the entire procedure involved in patient positioning complex portions of the surgery and final skin closure. I attest to the content of the Intraoperative Record and any orders documented therein. Any exceptions are noted below.
--- NOTE | 2023-02-04 14:25 | Fluoroscopy Report ---
FL lumbar spine 2-3V CLINICAL HISTORY: L1-L3 DECOMPRESSION T11-L3 FUSION TECHNIQUE: 2 views were obtained with the C-arm in the OR with the above procedure. Total fluoroscopy time was 16.8 seconds. Radiation dose was 30.55 mGy. Comparison: Comparison is made to CT myelogram 01/05/2023 FINDINGS/IMPRESSION: Intraoperative images were obtained of L2-L3 decompression and fusion. Please correlate with intraoperative fluoroscopy and operative report. ACT 112: Negative or not required by law. Electronically signed by: James Mcpherson M.D. 02/04/2023 2:24 PM
[2023-02-04] MEDS: fentaNYL citrate PF 100 MCG/2 ML VIAL IV PRN ×4 (14:58→15:15)
--- NOTE | 2023-02-04 15:51 | Anesthesiology Progress Note ---
Date of Service February 04, 2023 Anesthesia Post Procedure Vital Signs Vital Signs: Temp Pulse Resp BP Pulse Ox O2 Del Method O2 Flow Rate 02/04/23 14:50 81 16 146/65 H 97 Oxymask 7 02/04/23 15:40 97.7 F 88 14 116/59 L 96 Nasal Cannula 3 02/04/23 15:30 97.7 F 88 21 129/57 L 96 Nasal Cannula 3 02/04/23 15:20 97.7 F 87 18 136/57 L 95 Nasal Cannula 3 02/04/23 15:10 97.7 F 87 22 145/76 H 95 Nasal Cannula 3 02/04/23 15:00 97.7 F 83 17 136/66 96 Oxymask 4 02/04/23 14:40 84 23 150/64 H 98 Oxymask 7 02/04/23 14:31 97.7 F 85 16 143/60 H 99 Oxymask 7 02/04/23 10:07 98.4 F 71 20 187/79 H 98 Room Air Pain Intensity Lower Back: Pain Intensity: 3 Transfer of Care Handoff Completed per policy Notes Mental Status: alert / awake / arousable and participated in evaluation Patient Amnestic to Procedure: Yes Nausea / Vomiting: adequately controlled Pain: adequately controlled Airway Patency, RR, SpO2: stable & adequate BP & HR: stable & adequate Hydration State: stable & adequate Anesthetic Complications: no major complications apparent and Pt Satisfied with anesthetic care
[2023-02-04] MEDS ORDERED: ONDANSETRON 4 MG OD TAB PO PRN (16:07)
[2023-02-04] MEDS ORDERED: LACTATED RINGER'S 1,000 ML IV SCH (16:07)
[2023-02-04] MEDS ORDERED: DO NOT ADMINISTER FLU VACCINE PRN (16:07)
[2023-02-04] MEDS ORDERED: hydrOXYzine HCl 10 MG TAB PO PRN (16:07)
[2023-02-04] MEDS ORDERED: METOCLOPRAMIDE HCL INJ 5 MG/ML 2 ML VIAL IV PRN (16:07)
[2023-02-04] MEDS ORDERED: ACETAMINOPHEN 1,000 MG/100 ML VIAL IV PRN (16:07)
[2023-02-04] MEDS ORDERED: LORazepam 2 MG/1 ML VIAL IV PRN (16:07)
[2023-02-04] MEDS ORDERED: traMADol HCL 50 MG TABLET PO PRN (16:07)
[2023-02-04] MEDS ORDERED: ALUMINUM/MAGNESIUM SUSP 30 ML UDC PO PRN (16:07)
[2023-02-04] MEDS ORDERED: SOD PHOSPHATE/SOD BIPHOSPHATE ENEMA 132 ML BTL PR PRN (16:07)
[2023-02-04] MEDS ORDERED: LORazepam 0.5 MG TAB PO PRN (16:07)
[2023-02-04] MEDS ORDERED: PROMETHAZINE HCL 12.5 MG in SODIUM CHLORIDE 0.9% 50 ML IV PRN (16:07)
[2023-02-04] MEDS ORDERED: ACETAMINOPHEN 500 MG TAB PO PRN (16:07)
[2023-02-04] MEDS ORDERED: DO NOT ADMINISTER PNEUMOCOCCAL VACCINE PRN (16:07)
[2023-02-04] MEDS ORDERED: HYDROmorphone INJ 0.5 MG/0.5 ML SYR IV PRN (16:07)
[2023-02-04] MEDS ORDERED: FAMOTIDINE 20 MG TAB PO PRN (16:07)
[2023-02-04] MEDS ORDERED: MAGNESIUM HYDROXIDE SUSP 30 ML UDC PO PRN (16:07)
[2023-02-04] MEDS ORDERED: NALOXONE HCL 0.4 MG/1 ML VIAL/CARP IV PRN (16:07)
[2023-02-04] MEDS ORDERED: bisacodyL 10 MG SUPP PR PRN (16:07)
[2023-02-04] MEDS ORDERED: diphenhydrAMINE Capsule 25 MG CAP PO PRN (16:07)
[2023-02-04] MEDS: oxyCODONE HCL IR 5 MG TAB (IMMEDIATE RELEASE) PO PRN (16:43)
[2023-02-04] MEDS: CLINDAMYCIN/D5W 600 MG/50 ML BAG IV SCH (19:50)
[2023-02-04] MEDS: DOCUSATE SODIUM/SENNA 50/8.6MG TAB PO SCH (19:51)
[2023-02-04] MEDS: ATORVASTATIN 10 MG TAB PO SCH (19:52)
[2023-02-04] MEDS: GABAPENTIN 300 MG CAP PO SCH (19:52)
[2023-02-04] MEDS: HYDROmorphone INJ 1 MG/ML SYRINGE IV PRN (21:16)
[2023-02-05] MEDS: CLINDAMYCIN/D5W 600 MG/50 ML BAG IV SCH (03:44)
[2023-02-05] MEDS: POLYETHYLENE (MIRALAX) 17 GM PACK PO SCH ×4 (05:28→21:58)
[2023-02-05] MEDS: LEVOTHYROXINE SODIUM 75 MCG TABLET PO SCH (05:30)
[2023-02-05] MEDS: HYDROmorphone INJ 1 MG/ML SYRINGE IV PRN (05:35)
[2023-02-05 06:33] LABS: Basophils # (auto) 0.02 K/uL (0-0.2); Basophils % (auto) 0.2 %; Hematocrit (blood only) 32.9 % (37.0-47.0); Hemoglobin 10.5 g/dl (12.0-16.0); Immature Granulocytes # (auto) 0.04 K/uL (0.01-0.20); Immature Granulocytes % (auto) 0.4 %; Lymphocytes # (auto) 1.56 K/uL (1.2-3.4); Lymphocytes % (auto) 14.2 %; Mean Corpuscular Hemoglobin 28.5 pg (25.0-34.0); Mean Corpuscular Hgb Conc 31.9 g/dL (32.0-36.0); Mean Corpuscular Volume 89.2 fL (80.0-100.0); Mean Platelet Volume 9.8 fL (9.4-12.4); Monocytes # (auto) 0.78 K/uL (0.11-0.59); Monocytes % (auto) 7.1 %; Neutrophils # (auto) 8.56 K/uL (1.40-6.50); Neutrophils % (auto) 78.1 %; Platelet Count 382 K/uL (130-400); RDW Coefficient of Variation 15.4 % (11.5-14.5); RDW Standard Deviation 49.6 fL (36.4-46.3); Red Blood Count 3.69 M/uL (4.20-5.40); White Blood Count 10.96 K/ul (4.8-10.8)
[2023-02-05 07:02] LABS: Anion Gap 5 (3-11); BUN Creatinine Ratio 13.6 (10-20); Blood Urea Nitrogen 17 mg/dl (6-23); Calcium 9.2 mg/dl (8.6-10.3); Carbon Dioxide 27 mmol/L (21-32); Chloride 104 mmol/L (98-107); Creatinine Clr Calc Pharmacy 41.4 ml/min; Est GFR (African American) 49.4 ml/min; Est GFR (Non-African American) 42.6 ml/min; Glucose 108 mg/dl (70-99(Fasting)); Sodium 136 mmol/L (136-145)
[2023-02-05] MEDS: CeleBREX 200 MG CAP PO SCH (10:06)
[2023-02-05] MEDS: PANTOprazole 40 MG TAB PO SCH (10:06)
[2023-02-05] MEDS: GABAPENTIN 300 MG CAP PO SCH ×2 (10:06→19:29)
[2023-02-05] MEDS: dexAMETHasone 6 MG in SYRINGE 0 ML IV SCH (10:06)
[2023-02-05] MEDS: ESCITALOPRAM OXALATE 10 MG TAB PO SCH (10:06)
[2023-02-05] MEDS: oxyCODONE HCL IR 5 MG TAB (IMMEDIATE RELEASE) PO PRN ×3 (10:14→21:56)
--- NOTE | 2023-02-05 11:37 | Orthopedic Progress Note ---
Date of Service February 05, 2023 Assessment & Plan (1) Neurogenic claudication due to lumbar spinal stenosis: Plan: At this time initiate physical therapy monitor SHAVONNE operatively discharge home in the next few days. Admission and Anticipated Discharge Date Admission Date: February 04, 2023 Subjective Back pain controlled leg pain improved Physical Exam Physical Exam: Patient is in bed. She is comfortable. Is good strength testing. Results & Data Vital Signs (Past 12 Hours) Vital Signs Temp Pulse Resp BP Pulse Ox O2 Del Method 02/05/23 10:49 36.7 C 85 17 144/76 H 92 Room Air 02/05/23 07:10 36.6 C 84 16 142/80 H 94 Room Air 02/05/23 02:27 36.4 C L 79 18 132/81 92 Room Air
--- NOTE | 2023-02-05 15:13 | Hospitalist Progress Note ---
Date of Service February 05, 2023 Assessment & Plan Admission and Anticipated Discharge Date Admission Date: February 04, 2023 Subjective Patient was seen this morning on rounds. She was sitting up in recliner in [facility]. She said she is feeling slightly better since she got up and out of the bed. She denies any chest pain or SOB. She has not been using the incentive spirometer. She states she is passing gas but no BM. Patient has almonte and SHAVONNE drain in place. PT and OT following. Review of Systems Constitutional: + fatigue; no fever and no chills Respiratory: + cough; no chest congestion, no dyspnea, no hemoptysis and no pain with cough Cardiovascular: no chest pain, no dyspnea, no orthopnea, no palpitations and no calf pain Gastrointestinal: no abdominal pain, no nausea and no vomiting Genitourinary: no dysuria and no flank pain Musculoskeletal: + back pain and + radicular pain Neurologic: no falls, no tremor(s), no seizure-like activity and no syncope Psychiatric: no irritability, no suicidal ideation, no anxiety and no confusion Physical Exam Constitutional: WD/WN, vitals as above Neck: trachea midline, no thyromegaly Respiratory: able to speak in complete sentences; no respiratory distress and no labored breathing Auscultation: + diminished lung sounds and + crackles; no rales and no rhonchi Cardiovascular: RRR, no murmur, no edema Gastrointestinal (Abdomen): normal bowel sounds, soft, nontender, no hepatosplenomegaly Psychiatric: A+Ox3, euthymic affect Results & Data Results & Data Vital Signs (Past 12 Hours) Vital Signs Temp Pulse Resp BP Pulse Ox O2 Del Method 02/05/23 10:49 36.7 C 85 17 144/76 H 92 Room Air 02/05/23 07:10 36.6 C 84 16 142/80 H 94 Room Air Laboratory Results Abnormal lab results 02/05/23 02/05/23 Range/Units 06:02 06:02 WBC 10.96 H (4.8-10.8) K/ul RBC 3.69 L (4.20-5.40) M/uL Hgb 10.5 L (12.0-16.0) g/dl Hct 32.9 L (37.0-47.0) % MCHC 31.9 L (32.0-36.0) g/dL RDW Std Deviation 49.6 H (36.4-46.3) fL RDW Coeff of Didi 15.4 H (11.5-14.5) % Neut # (Auto) 8.56 H (1.40-6.50) K/uL [place] # (Auto) 0.78 H (0.11-0.59) K/uL Creatinine 1.25 H (0.6-1.2) mg/dl Glucose 108 H (70-99(Fasting)) mg/dl PG Care Time/CCT Total # of Minutes Spent Total Time Spent with Patient: Total time spent is greater than 50% in coordination of care (as documented) at patient's floor/unit and/or counseling patient: Coding Diagnoses
--- NOTE | 2023-02-05 15:24 | Hospitalist Consultation ---
Date of Consultation February 05, 2023 Assessment & Plan (1) Neurogenic claudication due to lumbar spinal stenosis: Chronic post op day#1 1. Removal of posterior instrumentation L3-L5. #2 exploration of fusion L3-L5. #3 lumbar decompression bilateral medial facetectomies and foraminotomies L1-L2 L2-L3. #4 posterior spinal fusion L2-L3. #5 placement posterior instrumentation L2-L5. #6 interbody fusion L2-L3. #7 placement Spira 10 x 26 mm at L2-L3. #8 placement locally harvested morselized autograft in the posterior gutters. #9 placement of I factor in the interbody space and infuse collagen sponge from mass graft in the posterior lateral gutters. EBL 200 (2) Depression: Chronic and stable Continue Lexapro (3) Chronic GERD: Chronic and stable Continue Pantoprazole 40mg (4) Hypothyroidism: Chronic and stable Continue Levothyroxine Last TSH 1.95 in November 2022 (5) Mixed hyperlipidemia: Chronic and stable Continue Atorvastatin (6) Cough: acute Afebrile and saturating well on RA will check CXR educated on using the incentive spirometer Repeat labs in AM History of Present Illness Reason for Consultation: medical management Requesting Physician: Dr. Castillo Attending Physician: Klever Castillo, DO History of Present Illness Amaya Rush is a 72 year with a past medical history of HLD, GERD, hypothyroidism, depression and anxiety who was admitted for elective surgery for neurogenic claudication due to lumbar stenosis. A consult was placed with the hospitalist service for medical management Patient was seen this morning on rounds. She was sitting up in recliner in NAD. She said she is feeling slightly better since she got up and out of the bed. She denies any chest pain or SOB. She has not been using the incentive spirometer. She states she is passing gas but no BM. Patient has almonte and SHAVONNE drain in place. PT and OT following. She has a slight cough and educated her on the use of the incentive spirometer. She had a slight elevation in wBC, likely secondary to steroid Allergies Allergy/AdvReac Type Severity Reaction Status Date / Time adhesive Allergy Severe Skin Verified 02/04/23 10:01 redness, irritation iodine Allergy Severe topical -> Verified 02/04/23 10:01 Rash meperidine Allergy Severe Rash Verified 02/04/23 10:01 dicloxacillin Allergy Mild Hives, GI Verified 02/04/23 10:01 upset propoxyphene Allergy Mild Rash Verified 02/04/23 10:02 tetanus toxoid, adsorbed Allergy Mild Rash Verified 02/04/23 10:02 phenytoin Allergy Unknown Rash Verified 02/04/23 10:01 aspirin AdvReac Severe GI upset Verified 02/04/23 10:02 Home Medications Medication Instructions Recorded Confirmed Type psyllium husk (with sugar) 3.4 1 tsp PO QPM 01/12/19 02/04/23 History gram oral powder packet (Metamucil (with sugar)) hydroxyzine HCl 10 mg tablet 10 mg PO QPM PRN itching #30 tabs 04/27/22 02/04/23 Rx omeprazole 40 mg capsule,delayed 40 mg PO QAM #90 caps 06/22/22 02/04/23 Rx release acetaminophen 500 mg tablet 1,000 mg PO Q8 PRN Pain 01/18/23 02/04/23 History (Tylenol Extra Strength) atorvastatin 10 mg tablet (Lipitor) 10 mg PO QPM 01/18/23 02/04/23 History celecoxib 200 mg capsule 200 mg PO QAM 01/18/23 02/04/23 History gabapentin 300 mg capsule 300 mg PO BID #180 caps 02/02/23 02/04/23 Rx levothyroxine 75 mcg tablet 75 mcg PO QAM #90 tabs 02/02/23 02/04/23 Rx escitalopram oxalate 10 mg tablet 10 mg PO QAM 02/04/23 02/04/23 History (Lexapro) oxycodone 5 mg tablet 5 mg PO Q6H PRN pain #30 tabs 02/05/23 Rx tramadol 50 mg tablet 50 mg PO Q6H PRN pain, moderate 02/05/23 Rx #30 tabs Patient History Medical History Anxiety Asthma Stable; breathing controlled Chronic low back pain Cochlear implant in place Right DDD (degenerative disc disease) Dyslipidemia GERD (gastroesophageal reflux disease) controlled History of vertigo Intermittent x years Hypertension Hypothyroid Injury of left elbow work related injury required ligament repair Obesity Overactive bladder Recurrent UTI Sensorineural hearing loss (SNHL) of both ears Urinary hesitancy Surgical History H/O hysterectomy for benign disease H/O mastoidectomy History of cholecystectomy History of cochlear implant History of colonoscopy History of esophagogastroduodenoscopy (EGD) History of lumbar fusion L3-5 decompression, L3-S1 fusion (09/19/19): Grade view 3, MAC 3.0, ETT 7.0 at [facility]. No issues noted per post-op anesthesia progress note. History of neck surgery Fusion History of repair of left rotator cuff History of repair of right rotator cuff History of total right knee replacement Hx of bilateral cataract extraction S/P anal fissurectomy S/p reverse total shoulder arthroplasty Right Family History Mother Diabetes Hearing loss Heart disease Hypertension Mother Family history of diabetes mellitus (DM) Sister Diabetes Family history of diabetes mellitus (DM) Colon cancer Other No family history of allergies No family history of bleeding disorder Denies family history of Cancer Stroke Asthma Social History Smoking Status: Never smoker Second Hand Exposure: No; Do You Dip or Chew Tobacco: No; Tobacco Cessation Education Requested by Patient: No Hx Alcohol Use: No Hx Substance Use: No Preferred Language: Icelandic Communication Ability: Effective Insurance Healthcare Consultant Required: No Beliefs That Will Affect Care: None marital status: Current Living Situation: Spouse current occupational status: retired How many Children do You have: 3 Other Information That Helps Us Care for You: No Feels Safe at Home: Yes Safety Concerns: Feels Safe At This Time caffeine: Yes Seatbelt Use: always Assistive Devices: Walker Review of Systems Constitutional: + fatigue; no fever and no chills Respiratory: + cough; no chest congestion, no dyspnea and no hemoptysis Cardiovascular: no chest pain, no dyspnea, no orthopnea, no lightheadedness, no syncope and no calf pain Gastrointestinal: no abdominal pain, no nausea, no vomiting and no dysphagia Integumentary: no rash, no lesions and no new lesions Neurologic: no falls, no syncope, no headache(s) and no confusion Psychiatric: no hopelessness, no suicidal ideation, no anxiety and no confusion Physical Exam Constitutional: WD/WN, vitals as above ENMT: external ear and nose normal, oropharynx normal Neck: trachea midline, no thyromegaly Respiratory: + cough and able to speak in complete sentences; no respiratory distress and no labored breathing Auscultation: + diminished lung sounds and + crackles; no rales and no rhonchi Gastrointestinal (Abdomen): normal bowel sounds, soft, nontender, no hepatosplenomegaly Psychiatric: A+Ox3, euthymic affect Results & Data Results & Data Vital Signs (Past 12 Hours) Vital Signs Temp Pulse Resp BP Pulse Ox O2 Del Method 02/05/23 10:49 36.7 C 85 17 144/76 H 92 Room Air 02/05/23 07:10 36.6 C 84 16 142/80 H 94 Room Air Laboratory Results Abnormal lab results 02/05/23 02/05/23 Range/Units 06:02 06:02 WBC 10.96 H (4.8-10.8) K/ul RBC 3.69 L (4.20-5.40) M/uL Hgb 10.5 L (12.0-16.0) g/dl Hct 32.9 L (37.0-47.0) % MCHC 31.9 L (32.0-36.0) g/dL RDW Std Deviation 49.6 H (36.4-46.3) fL RDW Coeff of Didi 15.4 H (11.5-14.5) % Neut # (Auto) 8.56 H (1.40-6.50) K/uL [place] # (Auto) 0.78 H (0.11-0.59) K/uL Creatinine 1.25 H (0.6-1.2) mg/dl Glucose 108 H (70-99(Fasting)) mg/dl PG Care Time/CCT Total # of Minutes Spent Total Time Spent with Patient: Total time spent is greater than 50% in coordination of care (as documented) at patient's floor/unit and/or counseling patient: Coding Level of Care Code 67026 IN/OBS CONSULT LVL 3,45M Diagnoses Neurogenic claudication due to lumbar spinal stenosis M48.062 Depression F32.9 Chronic GERD K21.9 Hypothyroidism E03.9 Mixed hyperlipidemia E78.2 Cough R05
--- NOTE | 2023-02-05 17:03 | XRay Report ---
XR chest 2V PA/lateral CLINICAL HISTORY: cough and crackles on exam COMPARISON STUDY: Chest radiograph January 20, 2023. FINDINGS: Spinal fusions and right shoulder arthroplasty are incidentally noted. Lung volumes are nor mal. Lungs are clear. There is no pneumothorax or pleural effusion. Cardiac size is normal. Mediastin al contours are normal. There is no evidence for pulmonary edema. IMPRESSION: No acute cardiopulmonary findings. ACT 112: Negative or not required by law. Electronically signed by: Kaleb Padilla M.D. 02/05/2023 5:02 PM
[2023-02-05] MEDS: DOCUSATE SODIUM/SENNA 50/8.6MG TAB PO SCH (19:30)
[2023-02-05] MEDS: ATORVASTATIN 10 MG TAB PO SCH (19:30)
[2023-02-05] MEDS: hydrOXYzine HCl 25 MG TAB PO PRN (21:56)
[2023-02-06] MEDS: LEVOTHYROXINE SODIUM 75 MCG TABLET PO SCH (05:29)
[2023-02-06] MEDS: POLYETHYLENE (MIRALAX) 17 GM PACK PO SCH ×2 (05:29→12:01)
[2023-02-06 05:58] LABS: Hematocrit (blood only) 31.8 % (37.0-47.0); Hemoglobin 10.2 g/dl (12.0-16.0); Mean Corpuscular Hemoglobin 28.7 pg (25.0-34.0); Mean Corpuscular Hgb Conc 32.1 g/dL (32.0-36.0); Mean Corpuscular Volume 89.6 fL (80.0-100.0); Mean Platelet Volume 9.8 fL (9.4-12.4); Platelet Count 320 K/uL (130-400); RDW Coefficient of Variation 15.3 % (11.5-14.5); RDW Standard Deviation 50.4 fL (36.4-46.3); Red Blood Count 3.55 M/uL (4.20-5.40)
[2023-02-06 06:23] LABS: BUN Creatinine Ratio 15.9 (10-20); Calcium 9.8 mg/dl (8.6-10.3); Creatinine Clr Calc Pharmacy 58.8 ml/min; Est GFR (African American) 75.5 ml/min; Est GFR (Non-African American) 65.2 ml/min; Potassium 4.5 mmol/L (3.5-5.1)
[2023-02-06] MEDS: dexAMETHasone 6 MG in SYRINGE 0 ML IV SCH (08:13)
[2023-02-06] MEDS: PANTOprazole 40 MG TAB PO SCH (08:13)
[2023-02-06] MEDS: ESCITALOPRAM OXALATE 10 MG TAB PO SCH (08:14)
[2023-02-06] MEDS: GABAPENTIN 300 MG CAP PO SCH ×2 (08:14→20:24)
[2023-02-06] MEDS: CeleBREX 200 MG CAP PO SCH (08:14)
--- NOTE | 2023-02-06 08:28 | Orthopedic Progress Note ---
Date of Service February 06, 2023 Assessment & Plan (1) Neurogenic claudication due to lumbar spinal stenosis: Plan: At this time continue physical therapy monitor SHAVONNE output hopefully discharge home Wednesday. Admission and Anticipated Discharge Date Admission Date: February 04, 2023 Subjective Patient's pain is controlled. She is tolerating physical therapy. Physical Exam Physical Exam: On exam she is good strength testing. Appears comfortable. Results & Data Vital Signs (Past 12 Hours) Vital Signs Temp Pulse Resp BP Pulse Ox O2 Del Method 02/05/23 22:04 36.7 C 75 20 162/88 H 95 Room Air
[2023-02-06] MEDS: ACETAMINOPHEN 500 MG TAB PO PRN (14:57)
[2023-02-06] MEDS ORDERED: hydrALAZINE HCL 20 MG/ML VIAL IV PRN (19:04)
--- NOTE | 2023-02-06 19:11 | Hospitalist Progress Note ---
Date of Service February 06, 2023 Assessment & Plan (1) Neurogenic claudication due to lumbar spinal stenosis: Plan: s/p lumbar surgery to remove hardware, decompression, and revise fusion EBL [address] pain controlled, ambulating halls today post-op management as per Ortho continue steroids (2) Hypertension: Plan: BPs elevated today likely from steroids and anxiety with associated headache and flushing although she says she also gets those symptoms every time she is on steroids add prn IV hydralazine she is no longer on lisinopril HCT for the last 15 years although is mentioned in PCP note follow BPs (3) Anemia: Plan: hgb drop to 10 from 12 preop EBL 200mL and did have some bleeding from surgical site today which is now resolved SHAVONNE drain in place acute blood loss anemia related to surgery and some hemodilutional from IVFs follow CBC in AM (4) Depression: Plan: Chronic and stable Continue Lexapro (5) Chronic GERD: Plan: Chronic and stable Continue Pantoprazole 40mg (6) Hypothyroidism: Plan: Chronic and stable Continue Levothyroxine Last TSH 1.95 in November 2022 (7) Mixed hyperlipidemia: Plan: Chronic and stable Continue Atorvastatin (8) Cough: Plan: resolved Afebrile and saturating well on RA CXR negative 02/05 -continue incentive spirometer Plan DVT porph-SCDs Dispo-continued stay, hospitalist service will follow along Admission and Anticipated Discharge Date Admission Date: February 04, 2023 Subjective Pt had a BARAJAS and facial flushing today that went away with tylenol. Had higher BPs earlier that are now improved. Said she always gets this way when she is on steroids. Is moving bowels. Had some bleeding from surgical site that is now resolved. Physical Exam Constitutional: WD/WN, vitals as above Respiratory: normal respiratory effort, lungs clear to auscultation Cardiovascular: RRR, no murmur, no edema Gastrointestinal (Abdomen): normal bowel sounds, soft, nontender, no hepatosplenomegaly Genitourinary: Hernandez catheter in place with clear yellow urine Results & Data Results & Data Vital Signs (Past 12 Hours) Vital Signs Temp Pulse Resp BP Pulse Ox O2 Del Method 02/06/23 14:59 36.7 C 74 17 170/69 H 95 Room Air 02/06/23 11:52 73 173/75 H 02/06/23 08:31 36.7 C 73 190/91 H 96 Room Air Laboratory Results CBC, BMP reviewed PG Care Time/CCT Total # of Minutes Spent Total Time Spent with Patient: Total time spent is greater than 50% in coordination of care (as documented) at patient's floor/unit and/or counseling patient: Coding Level of Care Code 87126 SUB INP/OBS CARE 2/35MIN Diagnoses Neurogenic claudication due to lumbar spinal stenosis M48.062 Hypertension I10 Anemia D64.9 Depression F32.9 Chronic GERD K21.9 Hypothyroidism E03.9 Mixed hyperlipidemia E78.2 Cough R05
[2023-02-06] MEDS: DOCUSATE SODIUM/SENNA 50/8.6MG TAB PO SCH (20:25)
[2023-02-06] MEDS: hydrOXYzine HCl 25 MG TAB PO PRN (20:25)
[2023-02-06] MEDS: ATORVASTATIN 10 MG TAB PO SCH (20:25)
[2023-02-06] MEDS: oxyCODONE HCL IR 5 MG TAB (IMMEDIATE RELEASE) PO PRN (22:28)
[2023-02-07] MEDS: LEVOTHYROXINE SODIUM 75 MCG TABLET PO SCH (05:44)
[2023-02-07 06:46] LABS: Basophils # (auto) 0.04 K/uL (0-0.2); Basophils % (auto) 0.4 %; Eosinophils # (auto) 0.03 K/uL (0-0.50); Eosinophils % (auto) 0.3 %; Hematocrit (blood only) 29.7 % (37.0-47.0); Hemoglobin 9.5 g/dl (12.0-16.0); Immature Granulocytes # (auto) 0.05 K/uL (0.01-0.20); Immature Granulocytes % (auto) 0.5 %; Lymphocytes # (auto) 3.26 K/uL (1.2-3.4); Lymphocytes % (auto) 30.6 %; Mean Corpuscular Hemoglobin 28.4 pg (25.0-34.0); Mean Corpuscular Volume 88.7 fL (80.0-100.0); Mean Platelet Volume 9.6 fL (9.4-12.4); Monocytes # (auto) 0.83 K/uL (0.11-0.59); Monocytes % (auto) 7.8 %; Neutrophils # (auto) 6.46 K/uL (1.40-6.50); Neutrophils % (auto) 60.4 %; Platelet Count 342 K/uL (130-400); RDW Coefficient of Variation 15.5 % (11.5-14.5); RDW Standard Deviation 50.4 fL (36.4-46.3); Red Blood Count 3.35 M/uL (4.20-5.40); White Blood Count 10.67 K/ul (4.8-10.8)
[2023-02-07 07:01] LABS: Calcium 9.5 mg/dl (8.6-10.3); Creatinine Clr Calc Pharmacy 55.1 ml/min; Est GFR (African American) 69.8 ml/min; Est GFR (Non-African American) 60.2 ml/min
[2023-02-07] MEDS: dexAMETHasone 6 MG in SYRINGE 0 ML IV SCH (08:55)
[2023-02-07] MEDS: ESCITALOPRAM OXALATE 10 MG TAB PO SCH (08:55)
[2023-02-07] MEDS: PANTOprazole 40 MG TAB PO SCH (08:55)
[2023-02-07] MEDS: GABAPENTIN 300 MG CAP PO SCH ×2 (08:56→21:14)
[2023-02-07] MEDS: CeleBREX 200 MG CAP PO SCH (08:56)
[2023-02-07] MEDS: ACETAMINOPHEN 500 MG TAB PO PRN ×2 (09:01→21:18)
--- NOTE | 2023-02-07 10:26 | Orthopedic Progress Note ---
Date of Service February 07, 2023 Assessment & Plan (1) Neurogenic claudication due to lumbar spinal stenosis: Plan: This time we will continue physical therapy and anticipate discharge home tomorrow. Admission and Anticipated Discharge Date Admission Date: February 04, 2023 Subjective Patient's back pain is controlled physical therapy is tolerated well. Physical Exam Physical Exam: On exam she is up and ambulating. She is comfortable. Is good strength testing. Results & Data Vital Signs (Past 12 Hours) Vital Signs Temp Pulse Resp BP Pulse Ox O2 Del Method 02/07/23 07:03 36.7 C 67 16 157/77 H 96 Room Air
--- NOTE | 2023-02-07 16:08 | Hospitalist Progress Note ---
Date of Service February 07, 2023 Assessment & Plan (1) Neurogenic claudication due to lumbar spinal stenosis: Plan: s/p lumbar surgery to remove hardware, decompression, and revise fusion-doing very well post-op EBL [address] pain controlled, ambulating halls today post-op management as per Ortho steroids now stopped with acute blood loss anemia from 12--> 9 from surgery, expected loss, hemodynamically stable (2) Hypertension: Plan: BPs elevated on POD#1 likely from steroids and anxiety--> now much improved with associated headache and flushing although she says she also gets those symptoms every time she is on steroids--> also both now resolved add prn IV hydralazine-never required a dose she is no longer on lisinopril HCT for the last 15 years although is mentioned in PCP note follow BPs (3) Anemia: Plan: hgb drop to 9.5 from 12 preop EBL 200mL and did have some bleeding from surgical site which is now resolved SHAVONNE drain in place acute blood loss anemia related to surgery and some hemodilutional from IVFs (4) Depression: Plan: Chronic and stable Continue Lexapro (5) Chronic GERD: Plan: Chronic and stable Continue Pantoprazole 40mg (6) Hypothyroidism: Plan: Chronic and stable Continue Levothyroxine Last TSH 1.95 in November 2022 (7) Mixed hyperlipidemia: Plan: Chronic and stable Continue Atorvastatin (8) Cough: Plan: resolved Afebrile and saturating well on RA CXR negative 02/05 -continue incentive spirometer Plan DVT porph-SCDs Dispo-continued stay, hospitalist service will sign off at this time. Plan for discharge tomorrow. Please reach out with any new or acute issues. Admission and Anticipated Discharge Date Admission Date: February 04, 2023 Subjective Pt feeling much better today. BPs better, no headache. Is ambulating with a walker. Had a BM, eating, no nausea. Had Hernandez removed and voiding on her own. In good spirits and planning for discharge tomorrow Physical Exam Constitutional: WD/WN, vitals as above Respiratory: normal respiratory effort, lungs clear to auscultation Cardiovascular: RRR, no murmur, no edema Gastrointestinal (Abdomen): normal bowel sounds, soft, nontender, no hepatosplenomegaly Musculoskeletal: dressing over lower back c/d/i Results & Data Results & Data Vital Signs (Past 12 Hours) Vital Signs Temp Pulse Resp BP Pulse Ox O2 Del Method 02/07/23 14:40 36.8 C 70 16 149/75 H 96 Room Air 02/07/23 07:03 36.7 C 67 16 157/77 H 96 Room Air Laboratory Results CBC, BMP reviewed PG Care Time/CCT Total # of Minutes Spent Total Time Spent with Patient: Total time spent is greater than 50% in coordination of care (as documented) at patient's floor/unit and/or counseling patient: Coding Level of Care Code 81243 SUB INP/OBS CARE 09/09MIN Diagnoses Neurogenic claudication due to lumbar spinal stenosis M48.062 Hypertension I10 Anemia D64.9 Depression F32.9 Chronic GERD K21.9 Hypothyroidism E03.9 Mixed hyperlipidemia E78.2 Cough R05
[2023-02-07] MEDS: DOCUSATE SODIUM/SENNA 50/8.6MG TAB PO SCH (21:14)
[2023-02-07] MEDS: ATORVASTATIN 10 MG TAB PO SCH (21:14)
[2023-02-08] MEDS: LEVOTHYROXINE SODIUM 75 MCG TABLET PO SCH (06:38)
[2023-02-08] MEDS: ACETAMINOPHEN 500 MG TAB PO PRN (08:35)
[2023-02-08] MEDS: PANTOprazole 40 MG TAB PO SCH (08:35)
[2023-02-08] MEDS: ESCITALOPRAM OXALATE 10 MG TAB PO SCH (08:35)
[2023-02-08] MEDS: CeleBREX 200 MG CAP PO SCH (08:35)
[2023-02-08] MEDS: GABAPENTIN 300 MG CAP PO SCH (08:35)
--- NOTE | 2023-02-08 10:01 | Discharge Summary ---
Date of Service February 08, 2023 Admission HPI Per Admitting Provider This is a 72-year-old female presents with marked decline in status with chronic persistent back and right leg pain and failing since course of nonoperative care she is here for surgical invention. Principal Diagnosis Lumbar spinal stenosis with neurogenic claudication Discharge Data Allergies Allergy/AdvReac Type Severity Reaction Status Date / Time adhesive Allergy Severe Skin Verified 02/04/23 10:01 redness, irritation iodine Allergy Severe topical -> Verified 02/04/23 10:01 Rash meperidine Allergy Severe Rash Verified 02/04/23 10:01 dicloxacillin Allergy Mild Hives, GI Verified 02/04/23 10:01 upset propoxyphene Allergy Mild Rash Verified 02/04/23 10:02 tetanus toxoid, adsorbed Allergy Mild Rash Verified 02/04/23 10:02 phenytoin Allergy Unknown Rash Verified 02/04/23 10:01 aspirin AdvReac Severe GI upset Verified 02/04/23 10:02 Consultations 02/04/23 16:07 Consult Hospitalist Routine Procedures Performed Operation Date: 02/04/23 11:05 Actual Procedures p L1-L3 Decompression, T11-L3 Fusion, Spinal Cord Monitoring(Not Applicable) - Klever Castillo DO Ordered Studies 02/04/23 11:05 FL lumbar spine 2-3V Routine Hospital Course (1) Neurogenic claudication due to lumbar spinal stenosis: Patient went lumbar decompression fusion tolerated this well was taken to orthopedic floor postoperatively postop and when she was up and ambulating progressed throughout the weekend SHAVONNE drain decreasing probably. Excellent strength testing. Pain well controlled. Subsequent discharge home. Discharge orders instructions found in chart for further review. Total Time Total Time Spent Total Time Spent (In Minutes): 20 minutes Discharge Plan Discharge Items Patient Disposition: Home - Self-Care Reason For Visit: POSTOP Discharge Diagnosis: Lumbar spinal stenosis with neurogenic claudication Activity: As commented below Non-emergency contact: Primary Care Provider Call non-emergency contact if: you have any medication questions Follow-up/Referrals: Feroz Lance MD [Primary Care Provider] - Diet: Regular Addtl Attending Provider Instructions: ACTIVITY RECOMMENDATIONS: SELF CARE INSTRUCTIONS AFTER THORACIC/LUMBAR FUSIONS 1. You may walk to your tolerance. It is good exercise for your legs and back. Expect some back and intermittent leg aches and pains. 2. You may perform "counter-top" level activities (make a sandwich, abigail with a project, etc.). 3. No bending or lifting of more than 10 pounds or back twisting of any nature (roll like a log when turning in bed). 4. You may ride in a car for 20-30 minutes at a time. No driving until after your first visit with your doctor. 5. Frequent changes of position and restricting sitting to 30 minutes at a time will help limit the amount of back spasms and stiffness you may experience. 6. You may discontinue the use of ambulatory aids (cane, crutches, etc.) once your strength and confidence allow. 7. You may biomedical engineering internship the shower and let water strike your incision when you arrive home at least once daily. Do not take a tub bath, sit in a hot tub or go into a swimming pool until after your first recheck in the office. SPECIAL CARE INSTRUCTIONS: VERY IMPORTANT TO READ AND REVIEW A. Your surgical incision has been closed with a cosmetic suture under the skin that will dissolve in about 6 weeks. In 14 days, you can use a pair of clean scissors and cut the suture that is left outside of the skin at the ends of your incision. 1. The small skin tapes can be removed 7 days after surgery if they have not fallen off by that point. 2. You may keep the wound open to air as much as possible to promote healing after post-op day number 5 unless told otherwise by your doctor. 3. If you think the wound looks like it is becoming infected (redness or worsening drainage) and/or you are experiencing fever, chill or worsening back pain and muscle spasms, contact the office so that we may evaluate you as soon as possible. B. Complications are uncommon, but please contact us if you have any signs or symptoms of: 1. wound infection (fever higher than 102.5 degrees F, redness, separation of wound, drainage, or increasing pain from the incision) 2. blood clots in legs (pain, swelling, redness and warmth in legs) 3. urinary tract infection (fever higher than 102.5 degrees F, burning upon urination or increased frequency of urination) 4. nerve problems (inability to walk on your toes or heels, numbness, loss of bowel or bladder control) 5. any other symptoms that concern you C. Please call the office at if you have any concerns or questions about your operation or recovery. D. No smoking! Smoking drastically decreases the chance of a solid fusion. E. Do not take any anti-inflammatory medications (Indocin, Advil, Motrin, Aspirin, Naprosyn, etc.) as these may inhibit the chance of a solid fusion. Tylenol is okay to take for pain. MANAGING PAIN AFTER SPINAL SURGERY 1. Narcotic medication is intended for short-term use and will be provided for surgical pain. Surgical pain usually lasts for a period of 4-6 weeks. Narcotic medication includes Percocet, Vicodin, Darvocet, Tylenol #3 or Lortab. 2. Longer-term pain is more appropriately treated with non-narcotic medication such as Tylenol ES. 3. Muscle spasm is not appropriately treated with narcotics. Muscle relaxers such as Soma, Flexeril or Skelaxin can be used along with Tylenol ES. 4. Remember that we all live with some "aches and pains". This is not unusual or uncommon after an injury or as we get older. a. Back pain is expected and may include muscle spasms for 4 to 6 weeks after surgery. The pain should gradually improve. If the pain worsens for no apparent reason, please contact the office. b. Intermittent leg pain may also be experienced and should not be concerned about unless it worsens for no apparent reason. If so, please contact the office. 5. We will provide appropriate medication within the normal guidelines of their prescribed use. We will also be very cautious and aware of potential abuse and extended duration of patients' medication needs. a. Pain medications are for your comfort and to assist with sleep and rest so that the tissue can heal. They are not provided in order to return to normal activity and should not be used through the day. To do so or worsening pain at night can result from ongoing tissue damage and development of tolerance to the prescribed medicine. 6. Please allow 2-3 days to process refills. Prescriptions will not be mailed but must be picked up at the office. FOLLOW UP VISIT: Keep your scheduled follow-up appointment. Any questions, please call the office at . Pending Studies at Discharge: No Stand-Alone Forms: My [employer], Smoking Cessation Medications and DC Order Prescriptions: New tramadol 50 mg tablet 50 mg PO Q6H PRN (Reason: pain, moderate) Qty: 30 0RF oxycodone 5 mg tablet 5 mg PO Q6H PRN (Reason: pain) Qty: 30 0RF Continued hydroxyzine HCl 10 mg tablet 10 mg PO QPM PRN (Reason: itching) Qty: 30 11RF omeprazole 40 mg capsule,delayed release(DR/EC) 40 mg PO QAM Qty: 90 3RF gabapentin 300 mg capsule 300 mg PO BID Qty: 180 3RF levothyroxine 75 mcg tablet 75 mcg PO QAM Qty: 90 3RF Metamucil (with sugar) 3.4 gram powder in packet 1 tsp PO QPM celecoxib 200 mg capsule 200 mg PO QAM atorvastatin [Lipitor] 10 mg tablet 10 mg PO QPM acetaminophen [Tylenol Extra Strength] 500 mg tablet 1,000 mg PO Q8 PRN (Reason: Pain) escitalopram oxalate [Lexapro] 10 mg tablet 10 mg PO QAM Discharge Orders: Discharge Order (Routine); Ordered 02/08/23 Ordered By: Klever Castillo Admission Data Admit Date/Time: 02/04/23 14:14 Attending Provider: Klever Castillo Admit Provider: Klever Castillo Primary Care Provider: Feroz Lance Other Providers: Aristeo Collazo Natalie B.
== END 2023-02-08 13:00 | disposition home or self-care (01) | DRG 454 ==
LOC: ASU 09:27 → 3E 14:14